=== PATIENT | male | born 1985 | race Caucasian/White ===

== ENCOUNTER 2020-08-29 09:52 | Emergency (ER) | payer OTHER ==
[2020-08-29 10:56] LABS: Absolute Lymphocytes (CBC) 1.5 K/uL (0.7-4.9); Basophils % 0.7 % (0-1.3); Hematocrit 45.4 % (39.6-49.0); Lymphocytes % 17.6 % (15.3-44.8); RBC Red Blood Cell Count 4.79 M/uL (4.33-5.43)
[2020-08-29 11:24] LABS: Potassium 4.3 mmol/L (3.5-5.1)
[2020-08-29] MEDS ORDERED: NA CHLORIDE 0.9% 1,000 ML ONE (11:52)
--- NOTE | 2020-08-29 12:05 | RAD REPORT ---
EXAM DESCRIPTION: US - Extrem Venous W Compress Brain - 08/29/2020 11:34 am CLINICAL HISTORY: PAIN, both legs COMPARISON: December 2011 TECHNIQUE: Real-time sonographic evaluation of the bilateral lower extremity common femoral, superfi cial femoral, popliteal and posterior tibial veins was performed. FINDINGS: Normal compressibility, flow augmentation, phasic flow and spontaneous flow are identified in the left and right lower extremity common femoral, superficial femoral, popliteal and posterior t ibial veins. No intraluminal filling defects seen. IMPRESSION: No DVT in either lower extremity.
--- NOTE | 2020-08-29 12:39 | ER ---
Nurse's Notes [facility] Name: Wilder Blair Age: 34 yrs Sex: Male : 1985 Arrival Date: 08/29/2020 Time: 09:57 Bed 2 Private MD: Diagnosis: Type 2 diabetes mellitus with diabetic neuropathy, unspecified;Hyperglycemia, unspecified Presentation: 08/29 10:15 Chief complaint: Patient states: LLE pain and swelling for 1 day. Discoloration to both ll1 lower legs noticed by patient, pins/needles feeling at times. No SOB. Coronavirus screen: Client denies travel out of the [place] in the last 14 days. At this time, the client does not indicate any symptoms associated with coronavirus-19. Ebola Screen: Patient denies travel to an Ebola-affected area in the 21 days before illness onset. Initial Sepsis Screen: Does the patient meet any 2 criteria? HR > 90 bpm. No. Patient's initial sepsis screen is negative. Does the patient have a suspected source of infection? Yes: Other: LLE swelling. Risk Assessment: Do you want to hurt yourself or someone else? Patient reports no desire to harm self or others. Onset of symptoms was August 29, 2020. 10:15 Method Of Arrival: Ambulatory ll1 10:15 Acuity: CALEB 2 ll1 Historical: - Allergies: 10:17 No Known Allergies; ll1 - PMHx: 10:17 Diabetes - NIDDM; Hypertension; Asthma; ll1 - PSHx: 10:17 None; ll1 - Immunization history:: Flu vaccine is not up to date. - Social history:: Smoking status: Patient denies any tobacco usage or history of. Screenin:52 Abuse screen: Denies threats or abuse. Denies injuries from another. Nutritional ph screening: No deficits noted. Tuberculosis screening: No symptoms or risk factors identified. Fall Risk None identified. Assessment: 10:50 General: Appears in no apparent distress. comfortable, obese, well groomed, Behavior is ph calm, cooperative, appropriate for age, Denies fever, feeling ill. Pain: Complains of pain in left calf Pain does not radiate. Neuro: Level of Consciousness is awake, alert, obeys commands, Oriented to person, place, time, situation. Cardiovascular: Capillary refill < 3 seconds in bilateral fingers toes Patient's skin is warm and dry. Edema is 1+ to left midcalf, left ankle, right midcalf and right ankle. Respiratory: Airway is patent Respiratory effort is even, unlabored, Denies shortness of breath. GI: No signs and/or symptoms were reported involving the gastrointestinal system. Derm: Skin is intact, is healthy with good turgor, Skin is pink, warm \T\ dry. Musculoskeletal: Circulation, motion, and sensation intact. Range of motion: intact in all extremities. 12:00 Reassessment: Patient appears in no apparent distress at this time. Patient and/or ph family updated on plan of care and expected duration. Pain level reassessed. Patient is alert, oriented x 3, equal unlabored respirations, skin warm/dry/pink. 13:07 Reassessment: Patient appears in no apparent distress at this time. Patient and/or ph family updated on plan of care and expected duration. Pain level reassessed. Patient is alert, oriented x 3, equal unlabored respirations, skin warm/dry/pink. Vital Signs: 10:15 BP 215 / 144; Pulse 118; Resp 20; Temp 98.6; Pulse Ox 98% ; Weight 167.83 kg; Height 5 ll1 ft. 10 in. (177.80 cm); Pain 0/10; 10:51 BP 203 / 117; Pulse 109; Resp 18; Pulse Ox 99% on R/A; ph 11:34 BP 185 / 112; Pulse 110; Resp 16; Pulse Ox 96% on R/A; ph 13:07 BP 178 / 101; Pulse 97; Resp 16; Temp 98.1; Pulse Ox 98% on R/A; ph 10:15 Body Mass Index 53.09 (167.83 kg, 177.80 cm) ll1 10:51 pt reports that he has not taken home BP medication in > 1 month ph ED Course: 09:57 Patient arrived in ED. mr 09:59 Jones Hameed PA is PHCP. jmm 09:59 Pako Anton MD is Attending Physician. jmm 10:17 Triage completed. ll1 10:18 Arm band placed on Patient placed in an exam room, on a stretcher. ll1 10:36 Jesica Freeman, JANNETH is Primary Nurse. ph 10:45 Initial lab(s) drawn, by me, sent to lab. Inserted saline lock: 22 gauge in left ph antecubital area, using aseptic technique. Blood collected. 10:52 Patient has correct armband on for positive identification. Bed in low position. Call ph light in reach. Side rails up X 1. Pulse ox on. NIBP on. Door closed. Noise minimized. Warm blanket given. 11:34 US Extremity Venous W Compression Brain In Process Unspecified. EDMS 13:07 No provider procedures requiring assistance completed. IV discontinued, intact, ph bleeding controlled, No redness/swelling at site. Pressure dressing applied. Administered Medications: 11:43 Drug: NS 0.9% 1000 ml Route: IV; Rate: 1 bolus; Site: left antecubital; ph 13:08 Follow up: Response: No adverse reaction; IV Status: Completed infusion; IV Intake: ph 800ml Intake: 13:08 IV: 800ml; Total: 800ml. ph Outcome: 12:38 Discharge ordered by . marilee 13:08 Discharged to home ambulatory, with significant other. ph 13:08 Condition: good 13:08 Discharge instructions given to patient, Instructed on discharge instructions, follow up and referral plans. medication usage, Demonstrated understanding of instructions, follow-up care, medications, Prescriptions given X 2. 13:08 Patient left the ED. ph Signatures: Dispatcher [employer] EDMS Jones Hameed PA PA jmm Rivera, Mary mr Hall, Patricia, RN RN ph Toño Johns RN RN ll1
--- NOTE | 2020-08-29 12:39 | EDPHYS ---
Physician Documentation [facility] Name: Wilder Blair Age: 34 yrs Sex: Male : 1985 Arrival Date: 08/29/2020 Time: 09:57 Bed 2 Private MD: ED Physician Pako Anton HPI: 08/29 10:38 This 34 yrs old Male presents to ER via Ambulatory with complaints of Leg jmm Swelling. 10:38 The patient presents with pain. Onset: The symptoms/episode began/occurred gradually. jmm Modifying factors: The symptoms are alleviated by nothing. the symptoms are aggravated by nothing. Associated signs and symptoms: Pertinent positives: calf tenderness, swelling, Pertinent negatives fever. This is a 34 year old male with a history of DM, HTN, asthma that presents ot the ED with complaints of swelling to his lower legs, worse on the left. Patient denies fever, shortness of breath, chest pain. . Historical: - Allergies: 10:17 No Known Allergies; ll1 - PMHx: 10:17 Diabetes - NIDDM; Hypertension; Asthma; ll1 - PSHx: 10:17 None; ll1 - Immunization history:: Flu vaccine is not up to date. - Social history:: Smoking status: Patient denies any tobacco usage or history of. ROS: 10:38 Constitutional: Negative for fever, chills, and weight loss, Cardiovascular: Negative jmm for chest pain, palpitations, and edema, Respiratory: Negative for shortness of breath, cough, wheezing, and pleuritic chest pain. 10:38 MS/extremity: Positive for swelling. 10:38 All other systems are negative. Exam: 10:38 Constitutional: This is a well developed, well nourished patient who is awake, alert, jmm and in no acute distress. Head/Face: atraumatic. Eyes: EOMI, no conjunctival erythema appreciated ENT: Moist Mucus Membranes Neck: Trachea midline, Supple Chest/axilla: Normal chest wall appearance and motion. Cardiovascular: Regular rate and rhythm. No edema appreciated Respiratory: Normal respirations, no respiratory distress appreciated Abdomen/GI: Non distended, soft Back: Normal ROM Skin: General appearance color normal 10:38 Musculoskeletal/extremity: swelling noted to the lower legs bilaterally, full dorsalis pulse bilaterally, compartments are soft, NVI. 10:38 Skin: Appearance: Color: normal in color. 10:38 Neuro: Orientation: is normal, Mentation: is normal, Memory: is normal. 10:38 Psych: Behavior/mood is pleasant, cooperative. Vital Signs: 10:15 BP 215 / 144; Pulse 118; Resp 20; Temp 98.6; Pulse Ox 98% ; Weight 167.83 kg; Height 5 ll1 ft. 10 in. (177.80 cm); Pain 0/10; 10:51 BP 203 / 117; Pulse 109; Resp 18; Pulse Ox 99% on R/A; ph 11:34 BP 185 / 112; Pulse 110; Resp 16; Pulse Ox 96% on R/A; ph 13:07 BP 178 / 101; Pulse 97; Resp 16; Temp 98.1; Pulse Ox 98% on R/A; ph 10:15 Body Mass Index 53.09 (167.83 kg, 177.80 cm) ll1 10:51 pt reports that he has not taken home BP medication in > 1 month ph MDM: 10:19 Patient medically screened. yolanda 12:36 Data reviewed: vital signs, nurses notes. Counseling: I had a detailed discussion with marilee the patient and/or guardian regarding: the historical points, exam findings, and any diagnostic results supporting the discharge/admit diagnosis, lab results, radiology results, the need for outpatient follow up, to return to the emergency department if symptoms worsen or persist or if there are any questions or concerns that arise at home. ED course: I discussed with the patient to resume prescribed htn and DM medications. I will provide a refill for both. Patient states he is planning on establishing himself with Dr. Adkins PCP. . ED course: Patient is otherwise given strict return precautions. Patient undewrstood and agrees with the plan of care. . 08/29 10:33 Order name: CBC with Diff; Complete Time: 11:31 [facility] 08/29 10:33 Order name: BMP; Complete Time: 11:31 [facility] 08/29 10:33 Order name: US Extremity Venous W Compression Brain; Complete Time: 12:08 [facility] 08/29 10:34 Order name: Saline Lock; Complete Time: 10:50 [facility] Administered Medications: 11:43 Drug: NS 0.9% 1000 ml Route: IV; Rate: 1 bolus; Site: left antecubital; ph 13:08 Follow up: Response: No adverse reaction; IV Status: Completed infusion; IV Intake: ph 800ml Disposition: 18:00 Co-signature as Attending Physician, Pako Anton MD I agree with the assessment and [facility] plan of care. Disposition: 08/29/20 12:38 Discharged to Home. Impression: Type 2 diabetes mellitus with diabetic neuropathy, unspecified, Hyperglycemia, unspecified. - Condition is Stable. - Discharge Instructions: Type 2 Diabetes Mellitus, Diagnosis, Adult, Hyperglycemia, Neuropathic Pain. - Prescriptions for Lisinopril 20 mg Oral Tablet - take 1 tablet by ORAL route once daily; 20 tablet. Metformin 500 mg Oral Tablet Sustained Release 24 hr - take 1 tablet by ORAL route once daily with evening meal; 20 tablet. - Medication Reconciliation Form, Thank You Letter, Antibiotic Education, Prescription Opioid Use form. - Follow up: Private Physician; When: 2 - 3 days; Reason: Recheck today's complaints, Continuance of care, Re-evaluation by your physician. Signatures: Dispatcher [employer] EDPako Stephens MD MD cha Mickail, Joel, PA PA jmm Hall, Patricia, RN RN ph Toño Johns RN RN ll1 Corrections: (The following items were deleted from the chart) 13:08 12:38 08/29/2020 12:38 Discharged to Home. Impression: Type 2 diabetes mellitus with ph diabetic neuropathy, unspecified; Hyperglycemia, unspecified. Condition is Stable. Forms are Medication Reconciliation Form, Thank You Letter, Antibiotic Education, Prescription Opioid Use. Follow up: Private Physician; When: 2 - 3 days; Reason: Recheck today's complaints, Continuance of care, Re-evaluation by your physician. marilee
[2020-08-29 13:18] VITALS: BP 178/101; TEMP 98.1; O2SAT 98
== END 2020-08-29 13:08 | disposition home or self-care (01) ==
LOC: ER 09:52
DX: E11.40 Type 2 diabetes mellitus with diabetic neuropathy, unspecified (principal); E11.65 Type 2 diabetes mellitus with hyperglycemia; I10 Essential (primary) hypertension
CPT/HCPCS: 85025; 80048; 36415; 93970; 96360; 99284; J7030

== ENCOUNTER 2020-10-25 22:16 | Emergency (ER) | payer OTHER ==
[2020-10-25] MEDS ORDERED: NA CHLORIDE 0.9% 2,000 ML ONE (23:57)
[2020-10-25] MEDS ORDERED: CLINDAMYCIN 900MG/D5W 900 MG/50 ML IVPB IV ONE (23:57)
[2020-10-25] MEDS ORDERED: ACETAMINOPHEN 500 MG TAB ONE (23:57)
[2020-10-26] MEDS ORDERED: MORPHINE 4 MG/ML SYR ONE ×2 (00:19→02:49)
[2020-10-26 00:23] LABS: Absolute Lymphocytes (CBC) 1.2 K/uL (0.7-4.9); Basophils % 0.5 % (0-1.3); Hematocrit 42.5 % (39.6-49.0); Lymphocytes % 12.1 % (15.3-44.8); MPV 9.2 fL (7.6-11.3); RBC Red Blood Cell Count 4.38 M/uL (4.33-5.43)
[2020-10-26 00:30] LABS: ALT/SGPT 83 U/L (12-78); AST/SGOT 27 U/L (15-37); Albumin 3.6 g/dL (3.4-5.0); Alkaline Phosphatase 152 U/L (45-117); BUN Blood Urea Nitrogen 8 mg/dL (7-18); Bicarbonate 26 mmol/L (21-32); Bilirubin Direct 0.2 mg/dL (0-0.2); Bilirubin Total 0.5 mg/dL (0.2-1.0); Glucose Level 258 mg/dL (74-106); Lipase 65 U/L (73-393); Potassium 3.7 mmol/L (3.5-5.1); Protein, Total 8.7 g/dL (6.4-8.2); Sodium Level 136 mmol/L (136-145)
[2020-10-26 01:07] LABS: Urine Blood TRACE (NEG); Urine Glucose 2+ (NEG); Urine Protein 1+ (NEG); Urine pH 5.5 (5.0-7.0)
[2020-10-26 01:12] LABS: Urine Bacteria <20 /HPF (NONE SEEN); Urine RBC <5 /HPF (NONE SEEN); Urine Yeast FEW (NONE SEEN)
[2020-10-26] MEDS ORDERED: ONDANSETRON 4 MG/2 ML VIAL ONE ×2 (01:12→01:46)
--- NOTE | 2020-10-26 01:18 | ER ---
Nurse's Notes [facility] Name: Wilder Blair Age: 34 yrs Sex: Male : 1985 Arrival Date: 10/25/2020 Time: 22:17 Bed 16 Private MD: Diagnosis: Rebeka gangrene Presentation: 10/25 22:34 Chief complaint: Patient states: I had a cyst on my right groin on Monday and Monday tl1 I squeezed it and junk came out. Today my right scrotum is swollen and painful. I had a fever on Monday. Coronavirus screen: Client denies travel out of the [place] in the last 14 days. Ebola Screen: Patient negative for fever greater than or equal to 101.5 degrees Fahrenheit, and additional compatible Ebola Virus Disease symptoms Patient denies exposure to infectious person. Patient denies travel to an Ebola-affected area in the 21 days before illness onset. Initial Sepsis Screen: Does the patient meet any 2 criteria? HR > 90 bpm. Does the patient have a suspected source of infection? Yes: Skin breakdown/wound. Risk Assessment: Do you want to hurt yourself or someone else? Patient reports no desire to harm self or others. Onset of symptoms was October 23, 2020. 22:34 Method Of Arrival: Ambulatory tl1 22:34 Acuity: CALEB 3 tl1 Historical: - Allergies: 22:38 No Known Allergies; tl1 - Home Meds: 22:38 Metformin Oral [Active]; Lisinopril Oral [Active]; tl1 - PMHx: 22:38 Asthma; Diabetes - NIDDM; Hypertension; tl1 - PSHx: 22:38 None; tl1 - Immunization history:: Adult Immunizations unknown. - Social history:: Smoking status: Patient uses alcohol, on a daily basis. street drugs, marijuana, Patient/guardian denies using tobacco products. Screenin:00 Abuse screen: Denies threats or abuse. Nutritional screening: No deficits noted. jb4 Tuberculosis screening: No symptoms or risk factors identified. Fall Risk None identified. Assessment: 23:00 General: Appears in no apparent distress. uncomfortable, Behavior is calm, cooperative, jb4 appropriate for age. Pain: Complains of pain in groin Pain does not radiate. Pain currently is 5 out of 10 on a pain scale. Quality of pain is described as throbbing. Neuro: Level of Consciousness is awake, alert, obeys commands, Oriented to person, place, time, situation. Cardiovascular: Patient's skin is warm and dry. Respiratory: Airway is patent Respiratory effort is even, unlabored, Respiratory pattern is regular, symmetrical. GI: No signs and/or symptoms were reported involving the gastrointestinal system. : Swelling noted on scrotum. EENT: No signs and/or symptoms were reported regarding the EENT system. Derm: Skin is intact, Skin is pink, warm \T\ dry. Musculoskeletal: Circulation, motion, and sensation intact. Range of motion: intact in all extremities. 10/26 00:00 Reassessment: Patient appears in no apparent distress at this time. No changes from jb4 previously documented assessment. Patient and/or family updated on plan of care and expected duration. Pain level reassessed. 01:00 Reassessment: Patient appears in no apparent distress at this time. Patient and/or jb4 family updated on plan of care and expected duration. Pain level reassessed. Patient is alert, oriented x 3, equal unlabored respirations, skin warm/dry/pink. 02:00 Reassessment: Patient appears in no apparent distress at this time. Patient and/or jb4 family updated on plan of care and expected duration. Pain level reassessed. Patient is alert, oriented x 3, equal unlabored respirations, skin warm/dry/pink. Patient states feeling better. 02:30 Reassessment: Pt reports an increase in pain, provider notified, see MAR for orders. jb4 03:11 Reassessment: Patient appears in no apparent distress at this time. Patient and/or jb4 family updated on plan of care and expected duration. Pain level reassessed. Patient is alert, oriented x 3, equal unlabored respirations, skin warm/dry/pink. Report given to EMS, IV site remains clean dry and intact with fluids infusing with ease. Patient states feeling better. Vital Signs: 10/25 22:34 BP 172 / 129; Pulse 137; Resp 20; Temp 100.1; Pulse Ox 97% ; Weight 167.83 kg; Height 5 tl1 ft. 10 in. (177.80 cm); Pain /10; 10/26 00:30 BP 148 / 91; Pulse 107; Resp 16; Pulse Ox 100% on R/A; jb4 00:49 Temp 99.4(O); jb4 01:15 BP 146 / 86; Pulse 115; Resp 16; Pulse Ox 96% on R/A; jb4 02:00 BP 148 / 82; Pulse 118; Resp 18; Pulse Ox 95% on R/A; Pain 2/10; jb4 03:00 BP 136 / 80; Pulse 119; Resp 16; Temp 97.1(TE); Pulse Ox 99% on R/A; jb4 12 22:34 Body Mass Index 53.09 (167.83 kg, 177.80 cm) tl1 ED Course: 10/25 22:17 Patient arrived in ED. cl3 22:25 Pako Mccarthy PA is PHCP. cp 22:25 Hudson Jacinto MD is Attending Physician. cp 22:37 Triage completed. tl1 22:38 Arm band placed on right wrist. tl1 23:00 Patient has correct armband on for positive identification. Bed in low position. Call jb4 light in reach. Side rails up X 1. Pulse ox on. NIBP on. 23:35 Armond Cooper, RN is Primary Nurse. jb4 12 00:00 Inserted saline lock: 18 gauge in left antecubital area, using aseptic technique. Blood jb4 collected. 00:00 Initial lab(s) drawn, by ar, sent to lab. First set of blood cultures drawn by me, jb4 Urine collected: clean catch specimen, clear, Amount Voided: 400mL. 00:15 Second set of blood cultures drawn by me. jb4 00:41 CT Abd/Pelvis - IV Contrast Only In Process Unspecified. EDMS 01:09 initiated transfer with Sandrita Diaz from [facility]. mw2 01:42 Scrotum Testicles In Process Unspecified. EDMS 01:58 administrative approval given by Sandrita Diaz/ patient has been accepted to [address] [place] [address] 1646/ Dr. Durbin has accepted the patient in transfer/ report to be called to [phone]. 03:13 No provider procedures requiring assistance completed. Patient transferred, IV remains jb4 in place. Administered Medications: 00:00 Drug: NS 0.9% 1000 ml Route: IV; Rate: 1 bolus; Site: right antecubital; jb4 01:30 Follow up: Response: No adverse reaction; IV Status: Completed infusion; IV Intake: jb4 1000ml 00:00 Drug: Tylenol 1000 mg Route: PO; jb4 00:45 Follow up: Response: No adverse reaction; Temperature is decreased jb4 00:08 Drug: morphine 4 mg Route: IVP; Site: left antecubital; jb4 00:30 Follow up: Response: No adverse reaction; Pain is decreased; RASS: Alert and Calm (0) jb4 00:15 Drug: Clindamycin 900 mg Route: IVPB; Infused Over: 30 mins; Site: left antecubital; jb4 00:45 Follow up: Response: No adverse reaction; IV Status: Completed infusion; IV Intake: [id number] 01:07 Drug: Zofran (Ondansetron) 4 mg Route: IVP; Site: left antecubital; 4 01:30 Follow up: Response: No adverse reaction; No change in condition 4 01:28 Drug: LevaQUIN 750 mg Volume: 150 ml; Route: IVPB; Infused Over: 90 mins; Site: left [facility] antecubital; 02:58 Follow up: Response: No adverse reaction; IV Status: Completed infusion; IV Intake: jb4 150ml 01:30 Drug: NS 0.9% 1000 ml Route: IV; Rate: 1 bolus; Site: left antecubital; 4 03:15 Follow up: Response: No adverse reaction; IV Status: Completed infusion; IV Intake: jb4 1000ml 01:42 Drug: Zofran (Ondansetron) 4 mg Route: IVP; Site: left antecubital; jb4 02:13 Follow up: Response: No adverse reaction; Nausea is decreased jb4 02:58 Drug: morphine 4 mg Route: IVP; Site: left antecubital; jb4 03:07 Follow up: Response: No adverse reaction; Pain is decreased; RASS: Alert and Calm (0) jb4 02:59 Drug: vancoMYCIN 1 grams Route: IVPB; Rate: calculated rate; Site: left antecubital; jb4 03:04 Follow up: Response: No adverse reaction; IV Status: Infusion continued upon transfer jb4 Intake: 00:45 IV: 50ml; Total: 50ml. jb4 01:30 IV: 1000ml; Total: 1050ml. jb4 02:58 IV: 150ml; Total: 1200ml. jb4 03:15 IV: 1000ml; Total: 2200ml. jb4 Outcome: 01:17 ER care complete, transfer ordered by MD. mosley 03:13 Transferred by ground EMS [facility] to [facility], Transfer form jb4 completed. X-rays sent w/ patient. 03:13 Condition: stable 03:13 Discharge instructions given to patient, Instructed on the need for transfer, Demonstrated understanding of instructions. 03:14 Patient left the ED. jb4 Signatures: Dispatcher [employer] EDMS Leilani Gay RN RN tl1 Pako Mccarthy PA PA cp Bryson, James RN RN jb4 Arti Espinoza mw2 Cindy Johns cl3 Corrections: (The following items were deleted from the chart) 03:15 02:30 IV Status: Completed infusion; IV Intake: 1000ml jb4 jb4
--- NOTE | 2020-10-26 01:18 | EDPHYS ---
Physician Documentation [facility] Name: Wilder Blair Age: 34 yrs Sex: Male : 1985 Arrival Date: 10/25/2020 Time: 22:17 Bed 16 Private MD: ED Physician Hudson Jacinto HPI: 10/25 22:50 This 34 yrs old Male presents to ER via Ambulatory with complaints of Groin cp Pain. 22:50 The patient presents with scrotal pain, of the right side, with swelling, with cp erythema, drainage. 22:50 Onset: The symptoms/episode began/occurred 2 day(s) ago. cp 22:50 Associated signs and symptoms: Pertinent positives: fever, Pertinent negatives: cp abdominal pain, dysuria, vomiting. Severity of symptoms: in the emergency department the symptoms are actually worse, moderately. Historical: - Allergies: 22:38 No Known Allergies; tl1 - Home Meds: 22:38 Metformin Oral [Active]; Lisinopril Oral [Active]; tl1 - PMHx: 22:38 Asthma; Diabetes - NIDDM; Hypertension; tl1 - PSHx: 22:38 None; tl1 - Immunization history:: Adult Immunizations unknown. - Social history:: Smoking status: Patient uses alcohol, on a daily basis. street drugs, marijuana, Patient/guardian denies using tobacco products. ROS: 22:55 : Positive for of the scrotum, pain, swelling and erythema, Negative for urinary cp symptoms. 22:55 Eyes: Negative for injury, pain, redness, and discharge. cp 22:55 Constitutional: Positive for fever, Negative for body aches, chills. 22:55 Cardiovascular: Negative for chest pain. 22:55 Respiratory: Negative for cough, shortness of breath, wheezing. 22:55 Abdomen/GI: Negative for abdominal pain, nausea, vomiting, and diarrhea. 22:55 Neuro: Negative for altered mental status, headache, weakness. 22:55 All other systems are negative. Exam: 23:00 Constitutional: The patient appears in no acute distress, alert, awake, non-toxic, well cp developed, well nourished, obese. 23:00 Head/Face: Normocephalic, atraumatic. cp 23:00 Eyes: Periorbital structures: appear normal, Conjunctiva: normal, no exudate, no injection, Lids and lashes: appear normal, bilaterally. 23:00 ENT: External ear(s): are unremarkable, Nose: is normal, Posterior pharynx: Airway: no evidence of obstruction, patent. 23:00 Chest/axilla: Inspection: normal. 23:00 Cardiovascular: Rate: tachycardic. 23:00 Respiratory: the patient does not display signs of respiratory distress, Respirations: normal, no use of accessory muscles, no retractions, labored breathing, is not present. 23:00 Abdomen/GI: Inspection: obese 23:00 : Male external genitalia: erythema, of the right scrotal and inguinal area is seen, that is moderate, swelling: tenderness, that is moderate, induration. Vital Signs: 22:34 BP 172 / 129; Pulse 137; Resp 20; Temp 100.1; Pulse Ox 97% ; Weight 167.83 kg; Height 5 tl1 ft. 10 in. (177.80 cm); Pain 5/10; 10/26 00:30 BP 148 / 91; Pulse 107; Resp 16; Pulse Ox 100% on R/A; jb4 00:49 Temp 99.4(O); jb4 01:15 BP 146 / 86; Pulse 115; Resp 16; Pulse Ox 96% on R/A; jb4 02:00 BP 148 / 82; Pulse 118; Resp 18; Pulse Ox 95% on R/A; Pain 2/10; jb4 03:00 BP 136 / 80; Pulse 119; Resp 16; Temp 97.1(TE); Pulse Ox 99% on R/A; jb4 10/25 22:34 Body Mass Index 53.09 (167.83 kg, 177.80 cm) tl1 MDM: 10/25 22:31 Patient medically screened. cp 10/26 01:20 Data reviewed: vital signs, nurses notes, lab test result(s), radiologic studies, CT cp scan. Counseling: I had a detailed discussion with the patient and/or guardian regarding: the historical points, exam findings, and any diagnostic results supporting the discharge/admit diagnosis, lab results, radiology results, the need to transfer to another facility, [facility] does not immediately have the required specialist. 01:38 Physician consultation: was called at 01:38, was contacted at 01:38, regarding cp regarding transfer, to [facility]. patient's condition, DR Oliver, urologist, will consult on patient and request transfer to services of hospitalist. 01:52 Physician consultation: was called at 01:50, was contacted at 01:50, regarding cp regarding transfer, to [facility]. patient's condition, accepting physician will be DR Durbin. 12 22:47 Order name: Lactate; Complete Time: 00:44 cp 10/26 00:44 Interpretation: Abnormal: LAC 2.2. cp 12 22:47 Order name: Procalcitonin; Complete Time: 01:32 cp 10/25 22:47 Order name: Blood Culture Adult (2) cp 10/25 22:47 Order name: Basic Metabolic Panel; Complete Time: 00:44 cp 10/25 22:47 Order name: CBC with Diff; Complete Time: 00:44 cp 10/26 00:44 Interpretation: Normal except: MARCUS% 79.7; LYM% 12.1; NEUT A 8.1. cp 10/25 22:47 Order name: Hepatic Function; Complete Time: 00:44 cp 10/25 22:47 Order name: US Scrotum Testicles cp 10/25 22:47 Order name: Lipase; Complete Time: 00:44 cp 10/25 22:47 Order name: Urine Microscopic Only; Complete Time: 01:32 cp 10/25 23:26 Order name: CT Abd/Pelvis - IV Contrast Only cp 10/26 00:21 Order name: Urine Dipstick--Ancillary (enter results); Complete Time: 01:32 mw2 10/26 01:32 Interpretation: Normal except: UKET 3+; UBLD TRACE; UPROT 1+. cp 10/26 01:14 Order name: Urine Culture EDMS 10/25 22:47 Order name: IV Saline Lock; Complete Time: 00:25 cp 10/25 22:47 Order name: Labs collected and sent; Complete Time: 00:25 cp 10/25 22:47 Order name: Urine Dipstick-Ancillary (obtain specimen); Complete Time: 00:24 cp 10/26 00:45 Order name: Vital Signs: please update to include temp; Complete Time: 00:49 cp Administered Medications: 00:00 Drug: NS 0.9% 1000 ml Route: IV; Rate: 1 bolus; Site: right antecubital; jb4 01:30 Follow up: Response: No adverse reaction; IV Status: Completed infusion; IV Intake: jb4 1000ml 00:00 Drug: Tylenol 1000 mg Route: PO; jb4 00:45 Follow up: Response: No adverse reaction; Temperature is decreased jb4 00:08 Drug: morphine 4 mg Route: IVP; Site: left antecubital; jb4 00:30 Follow up: Response: No adverse reaction; Pain is decreased; RASS: Alert and Calm (0) jb4 00:15 Drug: Clindamycin 900 mg Route: IVPB; Infused Over: 30 mins; Site: left antecubital; jb4 00:45 Follow up: Response: No adverse reaction; IV Status: Completed infusion; IV Intake: [id number] 01:07 Drug: Zofran (Ondansetron) 4 mg Route: IVP; Site: left antecubital; jb4 01:30 Follow up: Response: No adverse reaction; No change in condition jb4 01:28 Drug: LevaQUIN 750 mg Volume: 150 ml; Route: IVPB; Infused Over: 90 mins; Site: left [facility] antecubital; 02:58 Follow up: Response: No adverse reaction; IV Status: Completed infusion; IV Intake: jb4 150ml 01:30 Drug: NS 0.9% 1000 ml Route: IV; Rate: 1 bolus; Site: left antecubital; jb4 03:15 Follow up: Response: No adverse reaction; IV Status: Completed infusion; IV Intake: jb4 1000ml 01:42 Drug: Zofran (Ondansetron) 4 mg Route: IVP; Site: left antecubital; jb4 02:13 Follow up: Response: No adverse reaction; Nausea is decreased jb4 02:58 Drug: morphine 4 mg Route: IVP; Site: left antecubital; jb4 03:07 Follow up: Response: No adverse reaction; Pain is decreased; RASS: Alert and Calm (0) jb4 02:59 Drug: vancoMYCIN 1 grams Route: IVPB; Rate: calculated rate; Site: left antecubital; jb4 03:04 Follow up: Response: No adverse reaction; IV Status: Infusion continued upon transfer [facility] Disposition: 04:19 Co-signature as Attending Physician, Hudson Jacinto MD I agree with the assessment and tw4 plan of care. Disposition: 10/26/20 01:17 Transfer ordered to [facility]. Diagnosis is Rebeka gangrene. - Reason for transfer: Higher level of care. - Accepting physician is Doctor. - Condition is Stable. - Problem is new. - Symptoms have improved. Signatures: Dispatcher [employer] EDMS Leilani Gay, RN RN tl1 Pako Mccarthy PA PA cp Bryson, James RN RN jb4 Hudson Jacinto MD MD tw4 Corrections: (The following items were deleted from the chart) 03:14 01:17 10/26/2020 01:17 Transfer ordered to [facility]. jb4 Diagnosis is Rebeka gangrene. Reason for transfer: Higher level of care. Accepting physician is Doctor. Condition is Stable. Problem is new. Symptoms have improved. cp
[2020-10-26] MEDS ORDERED: Levofloxacin 750mg IV 750 MG/150 ML BAG IV ONE (01:33)
[2020-10-26] MEDS ORDERED: NA CHLORIDE 0.9% 250 ML ONE (01:33)
[2020-10-26] MEDS ORDERED: VANCOMYCIN 1 GM/VIAL ONE (01:33)
--- NOTE | 2020-10-26 08:31 | RAD REPORT ---
EXAM DESCRIPTION: US - Scrotum Testicles - 10/26/2020 1:42 am CLINICAL HISTORY: Pain;Swelling COMPARISON: Abdomen Pelvis W Contrast dated 10/26/2020 FINDINGS: The right testicle 4.0 x 3.1 x 2.7 cm. No intratesticular masses or evidence of testicular torsion. The left testicle 3.7 x 3.2 x 2.3 cm. No intratesticular masses or evidence of testicular torsion. Both epididymides are normal in size and appearance. Small right-sided scrotal katelynn. The soft tissues of the perineum and scrotum are quite edematous. Soft tissue infection is a possibil ity. IMPRESSION: No evidence of testicular torsion or testicular mass.
--- NOTE | 2020-10-26 10:49 | RAD REPORT ---
EXAM DESCRIPTION: CT ABDOMEN PELVIS WITH IV CONTRAST CLINICAL HISTORY: Right scrotal swelling/pain TECHNIQUE: Contiguous axial images obtained through the abdomen and pelvis following the uneventful administration of IV contrast. Coronal and sagittalreformatted images were provided. This exam was performed according to our departmental dose-optimization program, which includes autom ated exposure control, adjustment of the mA and/or kV according to patient size and/or use of iterati ve reconstruction technique. COMPARISON: 08/02/2013 FINDINGS: Lung bases: Clear Liver: Interval increase in degree of hepatomegaly. The liver is diffusely low in density compatible with steatosis. Gallbladder and biliary system: Unremarkable Pancreas: Unremarkable Spleen: Unremarkable Adrenals: Unremarkable Kidneys: Normal renal cortical enhancement. No calculi. No hydronephrosis. Bowel: No obstruction. No appreciable mucosal thickening. Appendix: The appendix is not definitively visualized. No findings to suggest acute appendicitis. Urinary bladder: Unremarkable Reproductive: Unremarkable as visualized Lymph nodes: Bilateral pelvic sidewall and inguinal lymph nodes measuring up to 18 mm in short axis. Peritoneum: No focal fluid collection. No free air. Vessels: No abdominal aortic aneurysm. Abdominal wall: Small fat-containing umbilical and bilateral inguinal hernias. Moderate infiltrative changes and soft tissue gas in the right upper scrotal/perineal region. There is an adjacent peripher ally enhancing collection measuring 2.3 x 1.3 x 2.5 cm (series 901 image 124). Diffuse scrotal wall e chevy. Bones: Multilevel spondylosis. No acute fracture. IMPRESSION: 1. Diffuse scrotal wall edema. Moderate infiltrative changes and soft tissue gas in th e right upper scrotal/perineal region concerning for necrotizing soft tissue infection. There is an a djacent abscess measuring 2.3 x 1.3 x 2.5 cm. 2. Other findings as above. THIS REPORT CONTAINS FINDINGS THAT MAY BE CRITICAL TO PATIENT CARE: The findings were verbally discu ssed via telephone conference with WILLIAN Taylor, on 10/26/2020 1:03 AM SWIMMING INSTRUCTOR. The results were acknowle dged and understood. Electronically signed by: Kieran Sosa MD 10/26/2020 1:05 AM SWIMMING INSTRUCTOR Due to temporary technical issues with the PACS/Fluency reporting system, reports are being signed by the in house radiologist without review as a courtesy to ensure prompt reporting. The interpreting r adiologist is fully responsible for the content of the report.
[2020-10-29 17:21] VITALS: BP 136/80; TEMP 97.1; O2SAT 99
== END 2020-10-26 03:14 | disposition short-term general hospital (02) ==
LOC: ER 22:16
DX: N49.3 Fournier gangrene (principal); I10 Essential (primary) hypertension; E11.9 Type 2 diabetes mellitus without complications
CPT/HCPCS: 96365; 96367; 96361; 87040 ×2; 87088; 85025; 87086; 80048; 36415; 82565; 80076; 83605; 83690; 84145; 74177; 76870; 96375; 99285; Q9967; J3370; J7050; J7030; J2405 ×2; 81003; 81015

== ENCOUNTER 2021-01-23 12:35 | Observation (INO) | payer OTHER ==
--- OUTSIDE RECORDS SUMMARY | 2021-01-23 12:39 | XMS REPORT | Continuity of Care Document ---
:1985 Author Organization [facility] t Address [address] [place] [address] Care Team Providers Name Role Phone Marisela STERLING Attending Clinician Daniela Garcia MD Attending Clinician Perry STERLING Attending Clinician DANIELA GARCIA Attending Clinician Unavailable Malcolm STERLING Attending Clinician Abraham Sharp MD Attending Clinician Rob Attending Clinician Dorina Mejia CRNA Attending Clinician Ruthy STERLING Attending Clinician Marshall Hanks MD Attending Clinician Han Sevilla CRNA Attending Clinician PERRY Admitting Clinician Unavailable Payers Payer Name Policy Type Policy Effective Date Expiration Date Sour ce Number MEDICAID - [id number] 2020 [facility] MEDICAID MGD 00:00:00 - Medical [place] Formerly [facility] HEALTH [id number] aid Contracted Problems Condition Condition Condition Status Onset Resolution Last Treating Co mments Source Name Details Category Date Date Treatment Clinician Date Scrotal Scrotal Disease Active 2019-[address] [facility] abscess abscess 12-27 [facility] Diabetes Diabetes Disease Active [facility] mellitus mellitus [facility] Hypertensi Hypertensi Disease Active [facility] on on [facility] Allergies, Adverse Reactions, Alerts This patient has no known allergies or adverse reactions. Social History Social Habit Start Date Stop Date Quantity Comments Source Sex Assigned At [facility] Tobacco use and 2020-11-04 2020-11-04 Never used [facility] - exposure 00:00:00 00:00:00 [facility] Smoking Status Start Date Stop Date Source Never smoker [facility] edical [place] Medications Ordered Filled Start Stop Current Ordering Indication Dosage Frequency Signature Comments Components Source Medication Medication Date Date Medication? Clinician (SIG) Name Name HYDROcodone 2019-11 1{tbl} Take [address] -acetaminop 222 11-20 tablet by Daniela kera carroll (NORCO 00:00: 23:59 mouth Medic al 10-325) 00 :00 every 6 Center 10-325 mg (six) per tablet hours as needed for Pain for up to 10 days. Max Daily Amount: 4 tablets HYDROmorpho 2019-11 2mg Take [address] [facility] ne 2-21 12-31 tablet (2 [facility] - (DILAUDID) 00:00: 23:59 mg total) edical 2 MG tablet 00 :00 by mouth Cent er every 4 (four) hours as needed for up to 10 days. Max Daily Amount: 12 mg lisinopriL 2019-11 Yes 20mg QD Take [address] (PRINIVIL,Z 2-18 by mouth Luke s - ESTRIL) 20 14:01: daily. Medic al MG tablet 29 Center metFORMIN 2019-11 Yes 500mg Take [address] [facility] (GLUCOPHAGE 2-18 mg by [facility] - ) 500 MG 14:01: mouth 2 Medica l tablet 29 (two) Center times daily with breakfast and dinner. potassium 2019-11 Yes 40meq QD Take 2 [facility] chloride SA 2-18 tablets [facility] - (K-DUR,KLOR 00:00: (40 mEq Med ical -CON) 20 00 total) by Center MEQ tablet mouth daily. hydroCHLORO 2019-11 No 25mg QD Take [address] thiazide 2-18 - tablet (25 [facility] - (HYDRODIURI 00:00: 23:59 mg total) Medical L) 25 MG 00 :00 by mouth Center tablet daily for 30 days. insulin 2019-11 No 30U QD Inject [address] glargine 01-07 Units [facility] - (LANTUS) 00:00: 23:59 subcutaneo Me dical 100 unit/mL 00 :00 usly Center injection nightly for 30 days Use as directed. insulin 2019-11 12U Inject [address] lispro 01-07 Units [facility] - (HumaLOG) 00:00: 23:59 subcutaneo M edical 100 unit/mL 00 :00 usly 3 Center injection (three) times daily before meals for 30 days. NIFEdipine 2019-11 No 60mg QD Take [address] (ADALAT CC) 01-07 tablet (60 L ukes - 60 MG 24 hr 00:00: 23:59 mg total) Medical tablet 00 :00 by mouth Center daily for 30 days. metroNIDAZO 2019-11 No 500mg Q.[id number] Take [address] LE (FLAGYL) 01-07 [id number] tablet [facility] - 500 MG 00:00: 23:59 3D (500 mg Medical tablet 00 :00 total) by Center mouth 3 (three) times daily for 19 days. amoxicillin 2019-11- No 1{tbl} Q.5D Take [address] -clavulanat 01-07 tablet by Daniela kes - e 00:00: 23:59 mouth 2 Medical (AUGMENTIN) 00 :00 (two) Center 875-125 mg times per tablet daily for 19 days. docusate 2019-11- No 100mg QD Take 1 [facility] t sodium 01-07 capsule [facility] - (COLACE) 00:00: 23:59 (100 mg Medic al 100 MG 00 :00 total) by Center capsule mouth daily for 10 days. ondansetron 2019-11- No 4mg Take [address] (ZOFRAN-ODT 01-0725 tablet (4 Daniela kes - ) 4 MG 00:00: 23:59 mg total) Medic al disintegrat 00 :00 by mouth Cent er ing tablet every 8 (eight) hours as needed for up to 7 days. HYDROmorpho 2019-11 No 2mg Take [address] [facility] [address] ne 01-07- tablet (2 [facility] - (DILAUDID) 00:00: 00:00 mg total) M edical 2 MG tablet 00 :00 by mouth Cent er every 4 (four) hours as needed for up to 10 days. Max Daily Amount: 12 mg polyethylen 2019-11 No 17g Take [address] [facility] e glycol 01-0721 by mouth [facility] - (GLYCOLAX) 00:00: 23:59 daily as Me dical 17 gram 00 :00 needed Center packet (Constipat ion) for up to 3 days. cefpodoxime 2019-11 200mg Q.5D Take [address] (VANTIN) 01-07 tablet [facility] - 200 MG 00:00: 00:00 (200 mg Medical tablet 00 :00 total) by Center mouth 2 (two) times daily for 19 days. Vital Signs Vital Name Observation Time Observation Value Comments Source Systolic blood 2020-11-06 12:00:00 132 mm[Hg] [facility] Diastolic blood 2020-11-06 12:00:00 79 mm[Hg] [facility] Heart rate 2020-11-06 12:00:00 98 /min [facility] Body temperature 2020-11-06 12:00:00 36.44 Lakesha [facility] Respiratory rate 2020-11-06 12:00:00 18 /min [facility] Oxygen saturation in 2020-11-06 12:00:00 98 /min [facility] - Arterial blood by Medical Ce nter Pulse oximetry Body height 2020-10-26 10:23:00 177.8 cm [facility] Body weight 2020-10-26 10:23:00 169.9 kg [facility] BMI 2020-10-26 10:23:00 53.74 kg/m2 [facility] Procedures Procedure Date / Time Performed Performing Clinician Ivan alex POCT-GLUCOSE METER 2020-11-06 12:26:00 Ralph Antonio [facility] POCT-GLUCOSE METER 2020-11-06 07:47:00 Marisela [facility] BASIC METABOLIC PANEL (7) 2020-11-06 05:29:00 Celine Sharp [facility] PHOSPHORUS 2020-11-06 05:29:00 Denishasierra [place] [facility] CBC W/PLT COUNT & AUTO 2020-11-06 05:29:00 Ralph Antonio I [facility] MAGNESIUM 2020-11-06 05:29:00 Denishasierra [place] [facility] POCT-GLUCOSE METER 2020-11-05 21:13:00 DenishaSharp [facility] POCT-GLUCOSE METER 2020-11-05 16:34:00 Denishasierra [place] [facility] POCT-GLUCOSE METER 2020-11-05 12:11:00 DenishaSharp [facility] POCT-GLUCOSE METER 2020-11-05 08:01:00 Denishasierra [place] [facility] BASIC METABOLIC PANEL (7) 2020-11-05 05:25:00 Celine Sharp [facility] HEMOGLOBIN AND HEMATOCRIT 2020-11-05 05:25:00 Celine Sharp [facility] CALCIUM, IONIZED 2020-11-05 05:25:00 [facility] PHOSPHORUS 2020-11-05 05:25[facility] 2020-11-05 05:25:[facility] POCT-GLUCOSE METER 2020-11-04 20:48:00 GregorydcjasSharp [facility] POCT-GLUCOSE METER 2020-11-04 17:44:00 DenishaSharp [facility] POCT-GLUCOSE METER 2020-11-04 12:51:00 DenishaSharp [facility] BASIC METABOLIC PANEL (7) 2020-11-04 10:15:00 Celine Sharp [facility] CALCIUM, IONIZED 2020-11-04 10:15:00 Gregorydcjassierra [place] [facility] PHOSPHORUS 2020-11-04 10:15:00 Gregorydcjassierra [place] [facility] CBC W/PLT COUNT & AUTO 2020-11-04 10:15:00 Denishasierra t[place]sonRalph [facility] MAGNESIUM 2020-11-04 10:15:00 [facility] POCT-GLUCOSE METER 2020-11-04 08:23:00 [facility] POCT-[facility]SE [facility] 2020-11-03 21:11:00 Gregorydcjassierra [place] [facility] POCT-GLUCOSE METER 2020-11-03 17:15:00 [facility] POCT-GLUCOSE METER 2020-11-03 14:59:00 [facility] DEBRIDEMENT/I&D,WOUND 2020-11-03 13:26:[address] [facility] ABORH, MANUAL 2020-11-03 12:25:00 Suagr Olmos [facility] POCT-GLUCOSE METER 2020-11-03 11:31:00 DenishaSharp [facility] POCT-GLUCOSE METER 2020-11-03 08:00:00 Gregorydcjassierra [place] [facility] BASIC METABOLIC PANEL (7) 2020-11-03 04:53:00 Celine Sharp [facility] HEMOGLOBIN AND HEMATOCRIT 2020-11-03 04:53:00 Celine Sharp [facility] CALCIUM, IONIZED 2020-11-03 04:53:00 Gregorydcjassierra [place] [facility] PHOSPHORUS 2020-11-03 04:53:00 [facility] MAGNESIUM 2020-11-03 04:53:00 Gregorydcjassierra [place] [facility] POCT-GLUCOSE METER 2020-11-02 21:58:00 [facility] [place] [facility] POCT-GLUCOSE METER 2020-11-02 16:03:00 GregorydcjasSharp [facility] TYPE AND SCREEN, 2020-11-02 15:01:[address] [facility] AUTOMATED [facility] SARS-COV2/RT-PCR ([facility] & 2020-11-02 13:38:[address] [facility] LABS) [facility] POCT-GLUCOSE METER 2020-11-02 11:34:00 GregorydcjasSharp [facility] POCT-GLUCOSE METER 2020-11-02 07:13:00 GregorydcjasSharp [facility] BASIC METABOLIC PANEL (7) 2020-11-02 04:17:00 Celine Sharp [facility] HEMOGLOBIN AND HEMATOCRIT 2020-11-02 04:17:00 Celine Sharp [facility] CALCIUM, IONIZED 2020-11-02 04:17:00 Denishasierra [place] [facility] PHOSPHORUS 2020-11-02 04:17:00 [facility] MAGNESIUM 2020-11-02 04:17:00 Gregorydcjassierra [place] [facility] POCT-GLUCOSE METER 2020-11-01 21:49:00 Gregorydcjassierra [place] [facility] POCT-GLUCOSE METER 2020-11-01 16:14:00 [facility] POCT-GLUCOSE METER 2020-11-01 12:02:00 [facility] BASIC METABOLIC PANEL (7) 2020-11-01 09:29:00 Celine Sharp [facility] CALCIUM, IONIZED 2020-11-01 09:29:00 Gregorycarmensierra [place] Ralph [facility] PHOSPHORUS 2020-11-01 09:29:00 [facility] & AUTO 2020-11-01 09:29:00 DenishaRalph queen Radha [facility] MAGNESIUM 2020-11-01 09:29:00 Denishabernice [facility] POCT-GLUCOSE METER 2020-11-01 08:12:00 Denishabernice [facility] POCT-GLUCOSE METER 2020-10-31 21:04:00 Denishasierra [place] [facility] POCT-GLUCOSE METER 2020-10-31 17:02:00 Denishabernice [facility] POCT-GLUCOSE METER 2020-10-31 12:29:00 Denishabernice [facility] POCT-GLUCOSE METER 2020-10-31 08:16:00 Marisela [facility] BASIC METABOLIC PANEL (7) 2020-10-31 05:03:00 Celine Sharp [facility] PHOSPHORUS 2020-10-31 05:03:00 [facility] MAGNESIUM 2020-10-31 05:03:00 [facility] CBC W/PLT COUNT & AUTO 2020-10-31 05:03:00 [facility]ra[facility] POCT-GLUCOSE METER 2020-10-30 22:42:00 Denishasierra [place] [facility] POCT-GLUCOSE METER 2020-10-30 16:42:00 Denishasierra [place] [facility] POCT-GLUCOSE METER 2020-10-30 11:34:00 Denishabernice [facility] POCT-GLUCOSE METER 2020-10-30 07:43:00 Gregorydcjassierra [place] [facility] BASIC METABOLIC PANEL (7) 2020-10-30 04:54:00 Celine Sharp [facility] PHOSPHORUS 2020-10-30 04:54:00 [facility] MAGNESIUM 2020-10-30 04:54:00 [facility] CBC W/PLT COUNT & AUTO 2020-10-30 04:54:00 [facility] CALCIUM, IONIZED 2020-10-30 04:54:00 [facility] PO[facility]SE METER 2020-10-29 21:15:00 [facility] POCT-GLUCOSE METER 2020-10-29 16:18:00 [facility] POCT-GLUCOSE METER 2020-10-29 11:21:00 [facility] POCT-GLUCOSE METER 2020-10-29 07:27:00 GregorydcjasSharp [facility] BASIC METABOLIC PANEL (7) 2020-10-29 03:59:00 Celine Sharp [facility] CALCIUM, IONIZED 2020-10-29 03:59:00 [facility] PHOSPHORUS 2020-10-29 03:59:00 [facility] MAGNESIUM 2020-10-29 03:59:00 [facility] CBC W/PLT COUNT & AUTO 2020-10-29 03:59:00 [facility] POCT-GLUCOSE METER 2020-10-28 21:10:00 GregorydcjasSharp [facility] POCT-GLUCOSE METER 2020-10-28 18:21:00 [facility] POCT-GLUCOSE METER 2020-10-28 16:38:00 [facility] DEBRIDEMENT/I&D,WOUND 2020-10-28 14:08:[address] [facility] PERINEAL/RECTAL/VULVAR Medical C enter PLACEMENT,WOUND VAC 2020-10-28 14:08:00 Tyler Bliss [facility] POCT-GLUCOSE METER 2020-10-28 12:18:00 Marisela [facility] POCT-GLUCOSE METER 2020-10-28 05:28:00 [facility]OLIC PANEL (7) 2020-10-28 04:23:00 Celine Sharp [facility] HEMOGLOBIN AND HEMATOCRIT 2020-10-28 04:23:00 Celine Sharp [facility] CALCIUM, IONIZED 2020-10-28 04:23:00 Mairsela [facility] PHOSPHORUS 2020-10-28 04:23:00 Marisela [facility] MAGNESIUM 2020-10-28 04:23:00 Marisela [facility] POCT-GLUCOSE METER 2020-10-27 21:38:00 Marisela [facility] POCT-GLUCOSE METER 2020-10-27 16:28:00 Marisela [facility] POCT-GLUCOSE METER 2020-10-27 11:24:00 Marisela [facility] POCT-GLUCOSE METER 2020-10-27 07:34:00 Marisela [facility] CBC W/PLT COUNT & AUTO 2020-10-27 04:48:00 Ralph Antonio CH I [facility] MAGNESIUM 2020-10-27 04:48:00 Marisela [facility] HEMOGLOBIN A1C 2020-10-27 04:48:00 Marisela [facility] TSH/FREE T4 IF INDICATED 2020-10-27 04:48:00 Marisela [facility] BASIC METABOLIC PANEL (7) 2020-10-27 04:48:00 Celine Sharp [facility] CALCIUM, IONIZED 2020-10-27 04:48:00 [facility]ishaDesert [facility] PHOSPHORUS 2020-10-27 04:48:00 [facility] POCT-GLUCOSE METER 2020-10-26 20:59:00 [facility] POCT-GLUCOSE METER 2020-10-26 17:47:00 GregorydcjasSharp [facility] CBC W/PLT COUNT & AUTO 2020-10-26 10:40:00 Madison Perea [facility] BASIC METABOLIC PANEL (7) 2020-10-26 10:40:00 Madison Perea [facility] POCT-GLUCOSE METER 2020-10-26 10:25:00 GregorydcjasSharp [facility] ANAEROBIC CULTURE 2020-10-26 09:25:57 Ruthy [facility] AFB CULTURE + SMEAR 2020-10-26 09:25:57 Ruthy [facility] (NON-SPUTUM) [facility] FUNGUS CULTURE + SMEAR 2020-10-26 09:25:57 Ruthy [facility] SPIN/CONCENTRATION CHARGE 2020-10-26 09:25:00 Tyler Bliss [facility] WOUND CULTURE + GRAM 2020-10-26 09:25:00 Ruthy [facility] STAIN [facility] DEBRIDEMENT/I&D,WOUND 2020-10-26 08:20:00 Ruthy [facility] PERINEAL/RECTAL/VULVAR Medical C enter LACTIC ACID, VENOUS 2020-10-26 06:27:00 Perry [facility] SARS-COV2/RT-PCR ([facility] & 2020-10-26 05:47:00 Maggie Amador [facility] - REF LABS) [facility] CBC W/PLT COUNT & AUTO 2020-10-26 05:31:00 Maggie Amador [facility] COMPREHENSIVE METABOLIC 2020-10-26 05:31:00 Perry, [place] [facility] PROTHROMBIN TIME/INR 2020-10-26 05:31:00 Eliseoernestonathaly [place] [facility] Plan of Care Planned Activity Planned Date Details Comments Source Future Scheduled 2021-01-[address] Daniela kes - Test 00:00:00 measurement Medical Center (procedure) [code = 97402932] Future Scheduled 2020-11-[address] [facility] - Test 00:00:00 (12+) [code = Medical Center DEPRESSION SCREENING (12+)] Future Scheduled 2020-07-21 INFLUENZA VACCINE (#1) [facility] 00:00:00 [code = INFLUENZA Medical Ce nter VACCINE (#1)] Future Scheduled [address] [facility] - Test 00:00:00 (procedure) [code = Medical Center 12100055] Future Scheduled 1997 DIABETIC EYE EXAM [facility] - Test 00:00:00 [code = DIABETIC EYE Medical Center EXAM] Future Scheduled [address] Jasmina es - Test 00:00:00 examination Medical Center (regime/therapy) [code = 317537573] Future Scheduled 1997 Urine screening for [facility] - Test 00:00:00 protein (procedure) Medical Center [code = 737632361] Future Scheduled [address] [facility] - Test 00:00:00 0-64 YRS (1 of 1 - Medical C enter PPSV23) [code = PNEUMOCOCCAL VACCINE 0-64 YRS (1 of 1 - PPSV23)] Encounters Start End Encounter Admission Attending Care Care Encounter Source Date/Time Date/Time Type Type Clinicians Facility Department ID 2020-11-17 2020-11-17 Outpatient [facility] [id number] [facility] 2020-11-11 2020[facility]11[facility]11 [id number] Results Test Description Test Time Test Comments Results Result Comments Source AFB culture + smear (non-sputum) 2020-12-08 07:22:00 Test Item Value Reference Range Interpretation Comme nts Result (test code = 6463-4) No acid-fast bacilli isolated in 42 day s AFB Smear (test code = 85715-7) No acid fast bacilli seen [facility]UM[facility]2020-12-08 07:22:00 Test Item Value Reference Range Interpretation Comments CULTURE (BEAKER) (test No acid-fast bacilli code = 1095) isolated in 42 days AFB SMEAR (BEAKER) No acid fast bacilli (test code = 994) seen Fungus culture + [id number] 23:55:00 Test Item Value Reference Range Interpretation Comments Result (test code = No fungus isolated in 6463-4) 28 days Fungus Smear (test No fungi seen code = 1406) [facility] + [id number] 23:55:00 Test Item Value Reference Range Interpretation Comments CULTURE (BEAKER) (test No fungus isolated in code = 1095) 28 days FUNGUS SMEAR (BEAKER) No fungi seen (test code = 1406) POC-Glucose [id number] 12:39:00 Test Item Value Reference Range Interpretation Comments POC-Glucose Meter (test 179 mg/dL 70-110 H : TE STED AT [facility] code = 1538) [address] [facility], 770 30: Machine [employer] Helper/Techni funmi ID = [id number] for Richard Seymour Lab Interpretation (test Abnormal code = 49469-0) [facility] [id number] 12:39:00 Test Item Value Reference Range Interpretation Comments POC-GLUCOSE METER 179 mg/dL 70-110 H : [facility] (BEAKER) (test code = [facility], 1538) 52778: Machine [employer]per/Techni funmi ID = [id number] for Richard Maguire POCT-GLUCOSE [id number] 07:59:00 Test Item Value Reference Range Interpretation Comments POC-GLUCOSE METER 129 mg/dL 70-110 H : TESTED A T [facility] 6720 (BEAKER) (test code = [facility], 1538) 52650: Machine [employer]per/Techni funmi ID = [id number] for Anita Liz CBC with platelet count + automated [id number] 07:28:00 Test Item Value Reference Range Interpretation Comments WBC (test code = 6690-2) 8.3 See_Comment [A utomated message] The system [employer] generated this result transmitted ref erence range: 3.5 - 10 .5 K/L. The refe rence range was not u sed to interpret this result as normal/abnor mal. RBC (test code = 789-8) 3.91 See_Comment L [Au tomated message] The system [employer] generated this result transmitted ref erence range: 4.63 - 6 .08 M/L. The refe rence range was not u sed to interpret this result as normal/abnor mal. MCHC (test code = 786-4) 32.6 See_Comment L [A utomated message] The system [employer] generated this result transmitted ref erence range: 32.3 - 3 6.5 GM/DL. The refe rence range was not u sed to interpret this result as normal/abnor mal. Hematocrit (test code = 38.7 % 40.1-51 L 4544-3) MCV (test code = 787-2) 99.0 fL 79-92.2 H MCH (test code = 785-6) 32.2 pg 25.7-32.2 RDW (test code = 788-0) 13.3 % 11.6-14.4 Platelets (test code = 337 See_Comment [Aut omated message] 777-3) The system [employer] generated this result transmitted ref erence range: 150 - 45 0 K/CU MM. The referen ce range was not u sed to interpret this result as normal/abnor mal. MPV (test code = 10.6 fL 9.4-12.4 49315-7) nRBC (test code = 413) 0 See_Comment [Aut omated message] The system [employer] generated this result transmitted ref erence range: 0 - 0 /1 00 WBC. The refere nce range was not u sed to interpret this result as normal/abnor mal. % Neutros (test code = 74 % 429) % Lymphs (test code = 18 % 430) % Monos (test code = 5 % 431) % Eos (test code = 432) 2 % % Baso (test code = 437) 0 % # Neutros (test code = 6.16 See_Comment H [Aut omated message] 670) The system [employer] generated this result transmitted ref erence range: 1.78 - 5 .38 K/L. The refe rence range was not u sed to interpret this result as normal/abnor mal. # Lymphs (test code = 1.49 See_Comment [Auto mated message] 414) The system [employer] generated this result transmitted ref erence range: 1.32 - 3 .57 K/L. The refe rence range was not u sed to interpret this result as normal/abnor mal. # Monos (test code = 0.42 See_Comment [Autom ated message] 415) The system [employer] generated this result transmitted ref erence range: 0.30 - 0 .82 K/L. The refe rence range was not u sed to interpret this result as normal/abnor mal. # Eos (test code = 416) 0.16 See_Comment [Au tomated message] The system [employer] generated this result transmitted ref erence range: 0.04 - 0 .54 K/L. The refe rence range was not u sed to interpret this result as normal/abnor mal. # Baso (test code = 417) 0.03 See_Comment [A utomated message] The system [employer] generated this result transmitted ref erence range: 0.01 - 0 .08 K/L. The refe rence range was not u sed to interpret this result as normal/abnor mal. Immature 1 % 0-1 Granulocytes-Relative (test code = 2801) Lab Interpretation (test Abnormal code = 68363-2) [facility] W/PLT COUNT & AUTO [id number] 07:28:00 Test Item Value Reference Range Interpretation Comments WHITE BLOOD CELL COUNT (BEAKER) 8.3 K/ L 3.5-10.5 (test code = 775) RED BLOOD CELL COUNT (BEAKER) 3.91 M/ L 4.63-6.08 L (test code = 761) HEMOGLOBIN (BEAKER) (test code = 12.6 GM/DL 13.7-17.5 L 410) HEMATOCRIT (BEAKER) (test code = 38.7 % 40.1-51.0 L 411) MEAN CORPUSCULAR VOLUME (BEAKER) 99.0 fL 79.0-92.2 H (test code = 753) MEAN CORPUSCULAR HEMOGLOBIN 32.2 pg 25.7-32.2 (BEAKER) (test code = 751) MEAN CORPUSCULAR HEMOGLOBIN CONC 32.6 GM/DL 32.3-36.5 (BEAKER) (test code = 752) RED CELL DISTRIBUTION WIDTH 13.3 % 11.6-14.4 (BEAKER) (test code = 412) PLATELET COUNT (BEAKER) (test 337 K/CU MM 150-450 code = 756) MEAN PLATELET VOLUME (BEAKER) 10.6 fL 9.4-12.4 (test code = 754) NUCLEATED RED BLOOD CELLS 0 /100 WBC 0-0 (BEAKER) (test code = 413) NEUTROPHILS RELATIVE PERCENT 74 % (BEAKER) (test code = 429) LYMPHOCYTES RELATIVE PERCENT 18 % (BEAKER) (test code = 430) MONOCYTES RELATIVE PERCENT 5 % (BEAKER) (test code = 431) EOSINOPHILS RELATIVE PERCENT 2 % (BEAKER) (test code = 432) BASOPHILS RELATIVE PERCENT 0 % (BEAKER) (test code = 437) NEUTROPHILS ABSOLUTE COUNT 6.16 K/ L 1.78-5.38 H (BEAKER) (test code = 670) LYMPHOCYTES ABSOLUTE COUNT 1.49 K/ L 1.32-3.57 (BEAKER) (test code = 414) MONOCYTES ABSOLUTE COUNT (BEAKER) 0.42 K/ L 0.30-0.82 (test code = 415) EOSINOPHILS ABSOLUTE COUNT 0.16 K/ L 0.04-0.54 (BEAKER) (test code = 416) BASOPHILS ABSOLUTE COUNT (BEAKER) 0.03 K/ L 0.01-0.08 (test code = 417) IMMATURE GRANULOCYTES-RELATIVE 1 % 0-1 PERCENT (BEAKER) (test code = 2801) Basic Metabolic Panel - In [id number] 07:00:00 Test Item Value Reference Range Interpretation Comments Sodium (test code = 136 meq/L 686-406 4914-2) Potassium (test code = 3.2 meq/L 3.5-5.1 L 2823-3) Chloride (test code = 98 meq/L 98-107 2075-0) CO2 (test code = 27 meq/L 22-29 8-9) BUN (test code = 4 mg/dL 7-21 L 3094-0) Creatinine (test code 0.65 mg/dL 0.57-1.25 = 2160-0) Glucose (test code = 121 mg/dL 70-105 H 2345-7) Calcium (test code = 9.0 mg/dL 8.4-10.2 33057-0) EGFR (test code = 142 mL/min/1.73 [place] [address]-7) NOT ACCURATE CREATININE CLEARANCE IN PREDICTING GLOMERULAR FILTRATION RATE . ESTIMATED GFR I S NOT APPLICABLE FOR DIALYSIS PATIENTS. LUCIO (test code = LUCIO) Machine Long Goods Helper ID - PIAYA L Lab Interpretation Abnormal (test code = 41439-0) [facility] Test Item Value Reference Range Interpretation Comments Magnesium (test code = 1.7 mg/dL 1.6-2.6 01240-1) LUCIO (test code = LUCIO) [employer] Helper ID - PIAYA L Lab Interpretation (test Normal code = 68451-1) [facility] 07:00:00 Test Item Value Reference Range Interpretation Comments Phosphorus (test code = 4.4 mg/dL 2.3-4.7 2777-1) LUCIO (test code = LUCIO) [employer] Helper ID - PIAYA L Lab Interpretation (test Normal code = 05467-4) [facility] [id number] 07:00:00 Test Item Value Reference Range Interpretation Comments SODIUM (BEAKER) 136 meq/L 136-145 (test code = 381) POTASSIUM (BEAKER) 3.2 meq/L 3.5-5.1 L (test code = 379) CHLORIDE (BEAKER) 98 meq/L 98-107 (test code = 382) CO2 (BEAKER) (test 27 meq/L -29 code = 355) BLOOD UREA NITROGEN 4 mg/dL 7-21 L (BEAKER) (test code = 354) CREATININE (BEAKER) 0.65 mg/dL 0.57-1.25 (test code = 358) GLUCOSE RANDOM 121 mg/dL 70-105 H (BEAKER) (test code = 652) CALCIUM (BEAKER) 9.0 mg/dL 8.4-10.2 (test code = 697) EGFR (BEAKER) (test 142 mL/min/1.73 ESTIM ATED GFR IS code = 1092) sq m NOT ACCURATE CREATININE CLEARANCE IN PREDICTING GLOMERULAR FILTRATION RATE . ESTIMATED GFR I S NOT APPLICABLE FOR DIALYSIS PATIEN TS. Machine [employer]s Helper ID - PIGREGORY [id number] 07:00:00 Test Item Value Reference Range Interpretation Comments MAGNESIUM (BEAKER) (test code = 1.7 mg/dL 1.6-2.6 627) [employer] Helper ID - PIGREGORY [id number] 07:00:00 Test Item Value Reference Range Interpretation Comments PHOSPHORUS (BEAKER) (test code = 4.4 mg/dL 2.3-4.7 604) [employer] Helper ID - AMANDA LPOCT-GLUCOSE [id number] 21:25:00 Test Item Value Reference Range Interpretation Comments POC-GLUCOSE METER 93 mg/dL 70-110 : TESTED A T [facility] 6720 (BEAKER) (test code = [facility]) 70[address]: Machine [employer] Goods Helper/Techni funmi ID = [id number] for Anita Durham od POCT-GLUCOSE [id number] 16:46:00 Test Item Value Reference Range Interpretation Comments POC-GLUCOSE METER 152 mg/dL 70-110 H : TESTED A T [facility] 6720 (BEAKER) (test code = [facility], 1538) 46197: Machine [employer] Goods Helper/Techni funmi ID = [id number] for Ellen Milner POCT-GLUCOSE [id number] 12:23:00 Test Item Value Reference Range Interpretation Comments POC-GLUCOSE METER 115 mg/dL 70-110 H : TESTED A T [facility] 6720 (BEAKER) (test code = [facility], 1538) 65375: Machine [employer] Goods Helper/Techni funmi ID = [id number] for Jamia j, Ellen POCT-GLUCOSE [id number] 08:13:00 Test Item Value Reference Range Interpretation Comments POC-GLUCOSE METER 127 mg/dL 70-110 H : TESTED A T [facility] 6720 (BEAKER) (test code = [facility], 1538) 37648: Machine [employer]s Helper/Techni funmi ID = [id number] for ISSA CHAPA BASIC METABOLIC [id number] 07:16:00 Test Item Value Reference Range Interpretation Comments SODIUM (BEAKER) 137 meq/L 136-145 (test code = 381) POTASSIUM (BEAKER) 3.2 meq/L 3.5-5.1 L (test code = 379) CHLORIDE (BEAKER) 100 meq/L 98-107 (test code = 382) CO2 (BEAKER) (test 28 meq/L 22-29 code = 355) BLOOD UREA NITROGEN 4 mg/dL 7-21 L (BEAKER) (test code = 354) CREATININE (BEAKER) 0.68 mg/dL 0.57-1.25 (test code = 358) GLUCOSE RANDOM 128 mg/dL 70-105 H (BEAKER) (test code = 652) CALCIUM (BEAKER) 8.9 mg/dL 8.4-10.2 (test code = 697) EGFR (BEAKER) (test 135 mL/min/1.73 ESTIM ATED GFR IS code = 1092) sq m NOT ACCURATE CREATININE CLEARANCE IN PREDICTING GLOMERULAR FILTRATION RATE . ESTIMATED GFR I S NOT APPLICABLE FOR DIALYSIS PATIEN TS. Machine [employer] Helper ID - NATASHA [id number] 07:16:00 Test Item Value Reference Range Interpretation Comments MAGNESIUM (BEAKER) (test code = 1.7 mg/dL 1.6-2.6 627) [employer] Helper ID - NATASHA [id number] 07:16:00 Test Item Value Reference Range Interpretation Comments PHOSPHORUS (BEAKER) (test code = 3.6 mg/dL 2.3-4.7 604) Machine [employer] Helper ID - NATASHA MCalcium, [id number] 06:37:00 Test Item Value Reference Range Interpretation Comments Calcium, Ion (test code = 1994-3) 1.14 mmol/L 1.12-1.27 pH, Blood (test code = 01480-8) 7.38 [facility] Center[facility], [id number] 06:37:00 Test Item Value Reference Range Interpretation Comments CALCIUM IONIZED (BEAKER) (test 1.14 mmol/L 1.12-1.27 code = 698) PH, BLOOD (BEAKER) (test code = 7.38 1810) Hemoglobin and hematocrit - in [id number] 06:20:00 Test Item Value Reference Range Interpretation Comments Hemoglobin (test code 12.1 See_Comment L [Auto mated = 786-4) message] The system which generated this result transmit shell reference range : 13.7 - 17.5 GM/ DL. The reference range was not u sed to interpret th is result as normal/abnormal . Hematocrit (test code 37.7 % 40.1-51 L = 4544-3) LUCIO (test code = LUCIO) Machine [employer] Goods Helper ID - [id number] Lab Interpretation Abnormal (test code = 41530-6) [facility] CenterHEMOGLOBIN AND [id number] 06:20:00 Test Item Value Reference Range Interpretation Comments HEMOGLOBIN (BEAKER) (test code = 12.1 GM/DL 13.7-17.5 L 410) HEMATOCRIT (BEAKER) (test code = 37.7 % 40.1-51.0 L 411) Machine [employer] Goods Helper ID - 6000POCT-GLUCOSE [id number] 21:00:00 Test Item Value Reference Range Interpretation Comments POC-GLUCOSE METER 133 mg/dL 70-110 H : TESTED A T [facility] 6720 (BEAKER) (test code = [employer] [facility], 1538) 29489: Machine [employer] Goods Helper/Techni funmi ID = [id number] for Anita Liz POCT-GLUCOSE [id number] 17:56:00 Test Item Value Reference Range Interpretation Comments POC-GLUCOSE METER 150 mg/dL 70-110 H : TESTED A T [facility] 6720 (BEAKER) (test code = [place] [facility], 1538) 19712: Machine [employer] Goods Helper/Techni funmi ID = [id number] for Ellen Milner POCT-GLUCOSE [id number] 13:03:00 Test Item Value Reference Range Interpretation Comments POC-GLUCOSE METER 162 mg/dL 70-110 H : TESTED A T [facility] 6720 (BEAKER) (test code = [place] [facility], 1538) 33578: Machine [employer] Goods Helper/Techni funmi ID = [id number] for Ellen Milner BASIC METABOLIC [id number] 10:45:00 Test Item Value Reference Range Interpretation Comments SODIUM (BEAKER) 135 meq/L 136-145 L (test code = 381) POTASSIUM (BEAKER) 3.6 meq/L 3.5-5.1 (test code = 379) CHLORIDE (BEAKER) 100 meq/L 98-107 (test code = 382) CO2 (BEAKER) (test 27 meq/L 22-29 code = 355) BLOOD UREA NITROGEN 3 mg/dL 7-21 L (BEAKER) (test code = 354) CREATININE (BEAKER) 0.74 mg/dL 0.57-1.25 (test code = 358) GLUCOSE RANDOM 164 mg/dL 70-105 H (BEAKER) (test code = 652) CALCIUM (BEAKER) 8.6 mg/dL 8.4-10.2 (test code = 697) EGFR (BEAKER) (test 123 mL/min/1.73 ESTIM ATED GFR IS code = 1092) sq m NOT ACCURATE CREATININE CLEARANCE IN PREDICTING GLOMERULAR FILTRATION RATE . ESTIMATED GFR I S NOT APPLICABLE FOR DIALYSIS PATIEN TS. Machine [employer]s Helper ID - BINTA [id number] 10:45:00 Test Item Value Reference Range Interpretation Comments MAGNESIUM (BEAKER) (test code = 1.7 mg/dL 1.6-2.6 627) Machine [employer]s Helper ID - BINTA [id number] 10:45:00 Test Item Value Reference Range Interpretation Comments PHOSPHORUS (BEAKER) (test code = 2.9 mg/dL 2.3-4.7 604) Machine [employer]s Helper ID - BINTA CCALCIUM, [id number] 10:30:00 Test Item Value Reference Range Interpretation Comments CALCIUM IONIZED (BEAKER) (test 1.15 mmol/L 1.12-1.27 code = 698) PH, BLOOD (BEAKER) (test code = 7.38 1810) CBC W/PLT COUNT & AUTO [id number] 10:23:00 Test Item Value Reference Range Interpretation Comments WHITE BLOOD CELL COUNT (BEAKER) 8.6 K/ L 3.5-10.5 (test code = 775) RED BLOOD CELL COUNT (BEAKER) 3.77 M/ L 4.63-6.08 L (test code = 761) HEMOGLOBIN (BEAKER) (test code = 12.1 GM/DL 13.7-17.5 L 410) HEMATOCRIT (BEAKER) (test code = 37.7 % 40.1-51.0 L 411) MEAN CORPUSCULAR VOLUME (BEAKER) 100.0 fL 79.0-92.2 H (test code = 753) MEAN CORPUSCULAR HEMOGLOBIN 32.1 pg 25.7-32.2 (BEAKER) (test code = 751) MEAN CORPUSCULAR HEMOGLOBIN CONC 32.1 GM/DL 32.3-36.5 L (BEAKER) (test code = 752) RED CELL DISTRIBUTION WIDTH 13.3 % 11.6-14.4 (BEAKER) (test code = 412) PLATELET COUNT (BEAKER) (test 319 K/CU MM 150-450 code = 756) MEAN PLATELET VOLUME (BEAKER) 10.0 fL 9.4-12.4 (test code = 754) NUCLEATED RED BLOOD CELLS 0 /100 WBC 0-0 (BEAKER) (test code = 413) NEUTROPHILS RELATIVE PERCENT 77 % (BEAKER) (test code = 429) LYMPHOCYTES RELATIVE PERCENT 14 % (BEAKER) (test code = 430) MONOCYTES RELATIVE PERCENT 5 % (BEAKER) (test code = 431) EOSINOPHILS RELATIVE PERCENT 3 % (BEAKER) (test code = 432) BASOPHILS RELATIVE PERCENT 1 % (BEAKER) (test code = 437) NEUTROPHILS ABSOLUTE COUNT 6.67 K/ L 1.78-5.38 H (BEAKER) (test code = 670) LYMPHOCYTES ABSOLUTE COUNT 1.17 K/ L 1.32-3.57 L (BEAKER) (test code = 414) MONOCYTES ABSOLUTE COUNT (BEAKER) 0.44 K/ L 0.30-0.82 (test code = 415) EOSINOPHILS ABSOLUTE COUNT 0.23 K/ L 0.04-0.54 (BEAKER) (test code = 416) BASOPHILS ABSOLUTE COUNT (BEAKER) 0.05 K/ L 0.01-0.08 (test code = 417) IMMATURE GRANULOCYTES-RELATIVE 1 % 0-1 PERCENT (BEAKER) (test code = 2801) POCT-GLUCOSE [id number] 08:36:00 Test Item Value Reference Range Interpretation Comments POC-GLUCOSE METER 188 mg/dL 70-110 H : TESTED Molina Hines [facility] 6720 (BEAKER) (test code = [facility], 1538) 22056: Machine [employer] Goods Helper/Techni funmi ID = [id number] for Ellen Milner POCT-GLUCOSE [id number] 21:25:00 Test Item Value Reference Range Interpretation Comments POC-GLUCOSE METER 154 mg/dL 70-110 H : TESTED A T [facility] 6720 (BEAKER) (test code = [facility], 153) 96556: Machine [employer] Goods Helper/Techni funmi ID = [id number] for ANASTACIO ALMEIDA POCT-GLUCOSE [id number] 17:27:00 Test Item Value Reference Range Interpretation Comments POC-GLUCOSE METER 142 mg/dL 70-110 H : TESTED A T [facility] 6720 (BEAKER) (test code = [facility], 153) 58843: Machine [employer] Goods Helper/Techni funmi ID = [id number] for Almita Davalos POCT-GLUCOSE [id number] 15:11:00 Test Item Value Reference Range Interpretation Comments POC-GLUCOSE METER 127 mg/dL 70-110 H : TESTED A T [facility] 6720 (BEAKER) (test code [facility], = 1538) 66521: Machine Long Goods Helper/Techni funmi ID = [id number] for TEA PITTMAN GINNY ABOR, [id number] 13:29:00 Test Item Value Reference Range Interpretation Comments ABO Grouping (test code = 2588) O Rh Factor (test code = 2589) POS [facility]PO[facility] [id number] 11:42:00 Test Item Value Reference Range Interpretation Comments POC-GLUCOSE METER 145 mg/dL 70-110 H : TESTED A T [facility] 6720 (BEAKER) (test code = [facility], 153) 47927: Machine [employer] Goods Helper/Techni funmi ID = [id number] for NIKUNJ ARREOLA POCT-GLUCOSE [id number] 08:12:00 Test Item Value Reference Range Interpretation Comments POC-GLUCOSE METER 135 mg/dL 70-110 H : TESTED A T [facility] 6720 (BEAKER) (test code = [facility], 153) 88573: Machine [employer] Goods Helper/Techni funmi ID = [id number] for Almita Davalos BASIC METABOLIC [id number] 05:41:00 Test Item Value Reference Range Interpretation Comments SODIUM (BEAKER) 138 meq/L 136-145 (test code = 381) POTASSIUM (BEAKER) 3.5 meq/L 3.5-5.1 (test code = 379) CHLORIDE (BEAKER) 102 meq/L 98-107 (test code = 382) CO2 (BEAKER) (test 25 meq/L 22-29 code = 355) BLOOD UREA NITROGEN 5 mg/dL 7-21 L (BEAKER) (test code = 354) CREATININE (BEAKER) 0.72 mg/dL 0.57-1.25 (test code = 358) GLUCOSE RANDOM 139 mg/dL 70-105 H (BEAKER) (test code = 652) CALCIUM (BEAKER) 8.9 mg/dL 8.4-10.2 (test code = 697) EGFR (BEAKER) (test 127 mL/min/1.73 ESTIM ATED GFR IS code = 1092) sq m NOT ACCURATE CREATININE CLEARANCE IN PREDICTING GLOMERULAR FILTRATION RATE . ESTIMATED GFR I S NOT APPLICABLE FOR DIALYSIS PATIEN TS. Machine [employer] Goods Helper ID - NATASHA [id number] 05:41:00 Test Item Value Reference Range Interpretation Comments MAGNESIUM (BEAKER) (test code = 1.7 mg/dL 1.6-2.6 627) Machine [employer] Helper ID - NATASHA [id number] 05:41:00 Test Item Value Reference Range Interpretation Comments PHOSPHORUS (BEAKER) (test code = 3.9 mg/dL 2.3-4.7 604) Machine [employer] Goods Helper ID - NATASHA MCALCIUM, [id number] 05:24:00 Test Item Value Reference Range Interpretation Comments CALCIUM IONIZED (BEAKER) (test 1.17 mmol/L 1.12-1.27 code = 698) PH, BLOOD (BEAKER) (test code = 7.36 1810) HEMOGLOBIN AND [id number] 05:11:00 Test Item Value Reference Range Interpretation Comments HEMOGLOBIN (BEAKER) (test code = 12.3 GM/DL 13.7-17.5 L 410) HEMATOCRIT (BEAKER) (test code = 39.2 % 40.1-51.0 L 411) Machine [employer] Goods Helper ID - 6000POCT-GLUCOSE [id number] 22:10:00 Test Item Value Reference Range Interpretation Comments POC-GLUCOSE METER 149 mg/dL 70-110 H : TESTED A T [facility] 6720 (BEAKER) (test code = [facility], 1538) 19162: Machine [employer] Goods Helper/Techni funmi ID = [id number] for Angelica Braden SARS-CoV2/RT-PCR (Asymptomatic ONLY)2020-11-02 19:12:00 Test Item Value Reference Range Interpretation Comments SARS-COV2/RT-PCR Negative Not Detected, (test code = Negative, See 29926-7) external report for linked test [facility] (test code = 99184-9) LUCIO (test code = Negative result for this LUCIO) test determines that SARS-CoV-2 RNA was not present in the specimen above the Limit of Detection (LOD). However, Negative results do not preclude SARS-CoV-2 infection and should not be used as the sole basis for treatment or patient management decisions. Negative results must be combined with clinical observations, patient history, and epidemiological information. A false negative result may occur if a specimen is improperly collected, transported or handled. A false negative result should be considered if patient's recent exposures or clinical presentation indicate that COVID-19 (SARS-CoV-2) is likely and diagnostic tests for other causes of illness are negative. Re-testing should be considered in cases of suspected false negatives. The limit of detection for this assay is 800 copies/mL. This SARS CoV-2 test is a real-time RT-PCR test intended for the qualitative detection of nucleic acid from SARS-CoV-2 in a nasopharyngeal swab specimen collected from individuals suspected of COVID-19 by their healthcare provider. This test has not been Food and Drug Administration (FDA) cleared or approved. This is a modified version of an approved Emergency Use Authorization (EUA) and is in the process of review by the FDA. Once authorized by the FDA, the issued EUA will be effective until the declaration that circumstances exist justifying the authorization of the emergency use of in vitro diagnostic tests for detection and/or diagnosis of COVID-19 is terminated under Section 564(b)(2) of the Act or the EUA is revoked under Section 564(g) of the Act. Fact Sheet for Healthcare Providers:https://www.[employer]/sites/default/f starla/product/documents/F act_Sheet_HC_Providers_L ifb_JFNU-UcW-9.pdf Fact Sheet for Healthcare Patients:https://www.[employer]/sites/default/fi les/product/documents/Fa ct_Sheet_Patients_Lyra_S ARS-CoV-2.pdf Performing Laboratory:[facility] [place] [address] [facility] (HS & REF LABS)2020-11-02 19:12:00 Test Item Value Reference Range Interpretation Comments SARS-COV2/RT-PCR (test Negative Not Detected, Negative, code = 4093008) See external report for linked test SARS-COV-[address] [facility] DEISI (test code = 4342984) Negative result for this test determines that SARS-CoV-2 RNA was not present in the specimen above the Limit of Detection (LOD). However, Negative results do not preclude SARS-CoV-2 infection and should not be used as the sole basis for treatment or patient management decisions. Negative results mustbe combined with clinical observations, patient history, and epidemiological information. A false negative result may occur if a specimen is improperly collected, transported or handled. A false negative result should be considered if patient's recent exposures or clinical presentation indicate that COVID-19 (SARS-CoV-2) is likely and diagnostic tests for other causes of illness are negative. Re-testing should be considered in cases of suspected false negatives.The limit of detection for this assay is 800 copies/mL.This SARS CoV-2 test is a real-time RT-PCR test intended for the qualitative detection of nucleic acid from SARS-CoV-2 in a nasopharyngeal swab specimen collected from individuals susp ected of COVID-19 by their healthcare provider.This test has not been Food and Drug Administration (FDA) cleared or approved. This is a modified version of an approved Emergency Use Authorization (EUA) and is in the process of review by the FDA. Once authorized by the FDA, the issued EUA will be effective until the declaration that circumstances exist justifying the authorization of the emergency use of in vitro diagnostic tests for detection and/or diagnosis of COVID-19 is terminated under Section 564(b)(2) of the Act or the EUA is revoked under Section 564(g) of the Act.Fact Sheet for Healthcare Providers:https://www.[employer]/sites/default/files/product/documents/Fact_Shee d_RU_Oesgwpoka_Scaa_BUSZ-RoB-7.pdfFact Sheet for Healthcare Patients:https://www.[employer]/sites/default/files/product/ documents/Mlps_Erzqk_Ikizlbwr_Zsbr_BAKJ-SyU-1.pdfPerforming Laboratory:[facility], [place] [address]Ardy and screen, [id number] 16:40:00 Test Item Value Reference Range Interpretation Comments ABO/RH AUTOMATED (BEAKER) (test O POSITIVE code = 2260) Ab Scrn (test code = 890-4) NEGATIVE [facility] [id number] 16:15:00 Test Item Value Reference Range Interpretation Comments POC-GLUCOSE METER 149 mg/dL 70-110 H : TESTED A T [facility] 6720 (BEAKER) (test code = [facility], 1538) 11737: Machine [employer] Goods Helper/Techni funmi ID = [id number] for DIA ARREOLAYL POCT-GLUCOSE [id number] 11:47:00 Test Item Value Reference Range Interpretation Comments POC-GLUCOSE METER 125 mg/dL 70-110 H : TESTED A T [facility] 6720 (BEAKER) (test code = [facility], 1538) 97286: Machine [employer] Goods Helper/Techni funmi ID = [id number] for DIA ARREOLAYL POCT-GLUCOSE [id number] 07:26:00 Test Item Value Reference Range Interpretation Comments POC-GLUCOSE METER 115 mg/dL 70-110 H : TESTED A T [facility] 6720 (BEAKER) (test code = [facility], 153) 03865: Machine [employer] Goods Helper/Techni funmi ID = [id number] for MAXWELL NIKUNJ [id number] 06:04:00 Test Item Value Reference Range Interpretation Comments MAGNESIUM (BEAKER) 1.8 mg/dL 1.6-2.6 Specimen slightly (test code = 627) hemolyzed [employer] Helper ID - [id number] 06:04:00 Test Item Value Reference Range Interpretation Comments PHOSPHORUS (BEAKER) 3.4 mg/dL 2.3-4.7 Specimen slightly (test code = 604) hemolyzed [employer] Helper ID - EDASIBASIC METABOLIC [id number] 06:04:00 Test Item Value Reference Range Interpretation Comments SODIUM (BEAKER) 138 meq/L 136-145 (test code = 381) POTASSIUM (BEAKER) 4.0 meq/L 3.5-5.1 Specimen slightly (test code = 379) hemolyzed CHLORIDE (BEAKER) 102 meq/L 98-107 (test code = 382) CO2 (BEAKER) (test 22 meq/L 22-29 code = 355) BLOOD UREA NITROGEN 5 mg/dL 7-21 L (BEAKER) (test code = 354) CREATININE (BEAKER) 0.70 mg/dL 0.57-1.25 Specimen slightly (test code = 358) hemolyzed GLUCOSE RANDOM 102 mg/dL 70-105 (BEAKER) (test code = 652) CALCIUM (BEAKER) 8.9 mg/dL 8.4-10.2 (test code = 697) EGFR (BEAKER) (test 131 mL/min/1.73 ESTIM ATED GFR IS code = 1092) sq m NOT ACCURATE CREATININE CLEARANCE IN PREDICTING GLOMERULAR FILTRATION RATE . ESTIMATED GFR I S NOT APPLICABLE FOR DIALYSIS PATIEN TS. Machine [employer] Goods Helper ID - EDASICALCIUM, [id number] 05:54:00 Test Item Value Reference Range Interpretation Comments CALCIUM IONIZED (BEAKER) (test 1.16 mmol/L 1.12-1.27 code = 698) PH, BLOOD (BEAKER) (test code = 7.31 1810) HEMOGLOBIN AND [id number] 05:38:00 Test Item Value Reference Range Interpretation Comments HEMOGLOBIN (BEAKER) (test code = 13.4 GM/DL 13.7-17.5 L 410) HEMATOCRIT (BEAKER) (test code = 41.5 % 40.1-51.0 411) Machine [employer] Goods Helper ID - 6000POCT-GLUCOSE [id number] 22:01:00 Test Item Value Reference Range Interpretation Comments POC-GLUCOSE METER 82 mg/dL 70-110 : [facility] ([facility]ER) (test code = [facility], 1538) 60877: Machine [employer] Goods Helper/Techni funmi ID = [id number] for GRAH AM, ADRIENNE POCT-GLUCOSE [id number] 16:27:00 Test Item Value Reference Range Interpretation Comments POC-GLUCOSE METER 112 mg/dL 70-110 H : TESTED A T [facility] 6720 (BEAKER) (test code = [facility], 1538) 66544: Machine [employer] Goods Helper/Techni funmi ID = [id number] for LONNY YEBOAHA POCT-GLUCOSE [id number] 12:15:00 Test Item Value Reference Range Interpretation Comments POC-GLUCOSE METER 127 mg/dL 70-110 H : TESTED A T [facility] 6720 (BEAKER) (test code = [facility], 1538) 66766: Machine Long Goods Helper/Techni funmi ID = [id number] for DA APOLINAR, KEYAIRA BASIC METABOLIC [id number] 10:10:00 Test Item Value Reference Range Interpretation Comments SODIUM (BEAKER) 138 meq/L 136-145 (test code = 381) POTASSIUM (BEAKER) 3.8 meq/L 3.5-5.1 (test code = 379) CHLORIDE (BEAKER) 103 meq/L 98-107 (test code = 382) CO2 (BEAKER) (test 22 meq/L 22-29 code = 355) BLOOD UREA NITROGEN 6 mg/dL 7-21 L (BEAKER) (test code = 354) CREATININE (BEAKER) 0.72 mg/dL 0.57-1.25 (test code = 358) GLUCOSE RANDOM 144 mg/dL 70-105 H (BEAKER) (test code = 652) CALCIUM (BEAKER) 8.9 mg/dL 8.4-10.2 (test code = 697) EGFR (BEAKER) (test 127 mL/min/1.73 ESTIM ATED GFR IS code = 1092) sq m NOT ACCURATE CREATININE CLEARANCE IN PREDICTING GLOMERULAR FILTRATION RATE . ESTIMATED GFR I S NOT APPLICABLE FOR DIALYSIS PATIEN TS. [employer]per ID - [id number] 10:10:00 Test Item Value Reference Range Interpretation Comments MAGNESIUM (BEAKER) (test code = 1.8 mg/dL 1.6-2.6 627) [employer] ID - [id number] 10:10:00 Test Item Value Reference Range Interpretation Comments PHOSPHORUS (BEAKER) (test code = 3.1 mg/dL 2.3-4.7 604) [employer] ID - ADMINCBC W/PLT COUNT & AUTO [id number] 09:45:00 Test Item Value Reference Range Interpretation Comments WHITE BLOOD CELL COUNT (BEAKER) 7.8 K/ L 3.5-10.5 (test code = 775) RED BLOOD CELL COUNT (BEAKER) 3.97 M/ L 4.63-6.08 L (test code = 761) HEMOGLOBIN (BEAKER) (test code = 12.8 GM/DL 13.7-17.5 L 410) HEMATOCRIT (BEAKER) (test code = 40.8 % 40.1-51.0 411) MEAN CORPUSCULAR VOLUME (BEAKER) 102.8 fL 79.0-92.2 H (test code = 753) MEAN CORPUSCULAR HEMOGLOBIN 32.2 pg 25.7-32.2 (BEAKER) (test code = 751) MEAN CORPUSCULAR HEMOGLOBIN CONC 31.4 GM/DL 32.3-36.5 L (BEAKER) (test code = 752) RED CELL DISTRIBUTION WIDTH 13.2 % 11.6-14.4 (BEAKER) (test code = 412) PLATELET COUNT (BEAKER) (test 292 K/CU MM 150-450 code = 756) MEAN PLATELET VOLUME (BEAKER) 9.6 fL 9.4-12.4 (test code = 754) NUCLEATED RED BLOOD CELLS 0 /100 WBC 0-0 (BEAKER) (test code = 413) NEUTROPHILS RELATIVE PERCENT 73 % (BEAKER) (test code = 429) LYMPHOCYTES RELATIVE PERCENT 17 % (BEAKER) (test code = 430) MONOCYTES RELATIVE PERCENT 6 % (BEAKER) (test code = 431) EOSINOPHILS RELATIVE PERCENT 3 % (BEAKER) (test code = 432) BASOPHILS RELATIVE PERCENT 1 % (BEAKER) (test code = 437) NEUTROPHILS ABSOLUTE COUNT 5.62 K/ L 1.78-5.38 H (BEAKER) (test code = 670) LYMPHOCYTES ABSOLUTE COUNT 1.29 K/ L 1.32-3.57 L (BEAKER) (test code = 414) MONOCYTES ABSOLUTE COUNT (BEAKER) 0.47 K/ L 0.30-0.82 (test code = 415) EOSINOPHILS ABSOLUTE COUNT 0.21 K/ L 0.04-0.54 (BEAKER) (test code = 416) BASOPHILS ABSOLUTE COUNT (BEAKER) 0.05 K/ L 0.01-0.08 (test code = 417) IMMATURE GRANULOCYTES-RELATIVE 1 % 0-1 PERCENT (AKER) (test code = 2801) CALCIUM, [id number] 09:40:00 Test Item Value Reference Range Interpretation Comments CALCIUM IONIZED (BEAKER) (test 1.17 mmol/L 1.12-1.27 code = 698) PH, BLOOD ([facility]) (test code = 7.36 1810) POCT-GLUCOSE [id number] 08:24:00 Test Item Value Reference Range Interpretation Comments POC-GLUCOSE METER 120 mg/dL 70-110 H : TESTED A T [facility] 6720 (BEText A Cab) (test code = [facility], [facility]8) 14293: Machine [employer] Helper/Techni funmi ID = [id number] for DA VIS, KEYAIRA POCT-GLUCOSE [id number] 21:16:00 Test Item Value Reference Range Interpretation Comments POC-GLUCOSE METER 127 mg/dL 70-110 H : TESTED A T [facility] 6720 ([facility]) (test code = [facility], [facility]8) 36600: Machine [employer] Helper/Techni funmi ID = [id number] for GR AHAM, ADRIENNE POCT-GLUCOSE [id number] 17:14:00 Test Item Value Reference Range Interpretation Comments POC-GLUCOSE METER 89 mg/dL 70-110 : TESTED A T [facility] 6720 (BEText A Cab) (test code = [facility], [facility]8) 82594: Machine [employer] Helper/Techni funmi ID = [id number] for AARON S, KEYAIRA POCT-GLUCOSE [id number] 12:42:00 Test Item Value Reference Range Interpretation Comments POC-GLUCOSE METER 125 mg/dL 70-110 H : TESTED A T [facility] 6720 (BEText A Cab) (test code = [facility], 1538) 73678: [employer] Helper/Techni funmi ID = [id number] for DA VIS, KEYAIRA POCT-GLUCOSE [id number] 09:01:00 Test Item Value Reference Range Interpretation Comments POC-GLUCOSE METER 128 mg/dL 70-110 H : TESTED A T [facility] 6720 (BEText A Cab) (test code = [facility], 1538) 10164: [employer] Helper/Techni funmi ID = [id number] for DA VIS, KEYAIRA BASIC METABOLIC [id number] 05:47:00 Test Item Value Reference Range Interpretation Comments SODIUM (BEAKER) 138 meq/L 136-145 (test code = 381) POTASSIUM (BEAKER) 3.8 meq/L 3.5-5.1 (test code = 379) CHLORIDE (BEAKER) 105 meq/L 98-107 (test code = 382) CO2 (BEAKER) (test 21 meq/L 22-29 L code = 355) BLOOD UREA NITROGEN 6 mg/dL 7-21 L (BEAKER) (test code = 354) CREATININE (BEAKER) 0.67 mg/dL 0.57-1.25 (test code = 358) GLUCOSE RANDOM 125 mg/dL 70-105 H (BEAKER) (test code = 652) CALCIUM (BEAKER) 8.6 mg/dL 8.4-10.2 (test code = 697) EGFR (BEAKER) (test 137 mL/min/1.73 ESTIM ATED GFR IS code = 1092) sq m NOT ACCURATE CREATININE CLEARANCE IN PREDICTING GLOMERULAR FILTRATION RATE . ESTIMATED GFR I S NOT APPLICABLE FOR DIALYSIS PATIEN TS. [employer] ID - [id number] 05:47:00 Test Item Value Reference Range Interpretation Comments MAGNESIUM (BEAKER) (test code = 1.8 mg/dL 1.6-2.6 627) [employer] ID - [id number] 05:47:00 Test Item Value Reference Range Interpretation Comments PHOSPHORUS (BEAKER) (test code = 3.1 mg/dL 2.3-4.7 604) [employer] ID - EDASICBC W/PLT COUNT & AUTO [id number] 05:32:00 Test Item Value Reference Range Interpretation Comments WHITE BLOOD CELL COUNT (BEAKER) 7.5 K/ L 3.5-10.5 (test code = 775) RED BLOOD CELL COUNT (BEAKER) 3.70 M/ L 4.63-6.08 L (test code = 761) HEMOGLOBIN (BEAKER) (test code = 12.0 GM/DL 13.7-17.5 L 410) HEMATOCRIT (BEAKER) (test code = 36.9 % 40.1-51.0 L 411) MEAN CORPUSCULAR VOLUME (BEAKER) 99.7 fL 79.0-92.2 H (test code = 753) MEAN CORPUSCULAR HEMOGLOBIN 32.4 pg 25.7-32.2 H (BEAKER) (test code = 751) MEAN CORPUSCULAR HEMOGLOBIN CONC 32.5 GM/DL 32.3-36.5 (BEAKER) (test code = 752) RED CELL DISTRIBUTION WIDTH 13.2 % 11.6-14.4 (BEAKER) (test code = 412) PLATELET COUNT (BEAKER) (test 278 K/CU MM 150-450 code = 756) MEAN PLATELET VOLUME (BEAKER) 9.7 fL 9.4-12.4 (test code = 754) NUCLEATED RED BLOOD CELLS 0 /100 WBC 0-0 (BEAKER) (test code = 413) NEUTROPHILS RELATIVE PERCENT 72 % (BEAKER) (test code = 429) LYMPHOCYTES RELATIVE PERCENT 17 % (BEAKER) (test code = 430) MONOCYTES RELATIVE PERCENT 7 % (BEAKER) (test code = 431) EOSINOPHILS RELATIVE PERCENT 3 % (BEAKER) (test code = 432) BASOPHILS RELATIVE PERCENT 0 % (BEAKER) (test code = 437) NEUTROPHILS ABSOLUTE COUNT 5.40 K/ L 1.78-5.38 H (BEAKER) (test code = 670) LYMPHOCYTES ABSOLUTE COUNT 1.26 K/ L 1.32-3.57 L (BEAKER) (test code = 414) MONOCYTES ABSOLUTE COUNT (BEAKER) 0.53 K/ L 0.30-0.82 (test code = 415) EOSINOPHILS ABSOLUTE COUNT 0.20 K/ L 0.04-0.54 (BEAKER) (test code = 416) BASOPHILS ABSOLUTE COUNT (BEAKER) 0.03 K/ L 0.01-0.08 (test code = 417) IMMATURE GRANULOCYTES-RELATIVE 1 % 0-1 PERCENT (BEAKER) (test code = 2801) POCT-GLUCOSE [id number] 22:56:00 Test Item Value Reference Range Interpretation Comments POC-GLUCOSE METER 101 mg/dL 70-110 : TESTED A [facility] 6720 (BEAKER) (test code [facility], = 1538) 66269: Machine [employer] Helper/Techni fumni ID = [id number] for DEVAN WILLIAM POCT-GLUCOSE [id number] 16:55:00 Test Item Value Reference Range Interpretation Comments POC-GLUCOSE METER 114 mg/dL 70-110 H : TESTED A T [facility] 6720 (BEAKER) (test code = [facility], 1538) 51208: Machine [employer] Helper/Techni funmi ID = [id number] for Ellen Milner POCT-GLUCOSE [id number] 11:46:00 Test Item Value Reference Range Interpretation Comments POC-GLUCOSE METER 147 mg/dL 70-110 H : TESTED A T [facility] 6720 (BEAKER) (test code = [facility], 1538) 28363: [employer] Helper/Techni funmi ID = [id number] for Ellen Milner POCT-GLUCOSE [id number] 07:55:00 Test Item Value Reference Range Interpretation Comments POC-GLUCOSE METER 160 mg/dL 70-110 H : TESTED A T [facility] 6720 (BEAKER) (test code = [facility], 1538) 55942: [employer] Helper/Techni funmi ID = [id number] for Ellen Milner BASIC METABOLIC [id number] 06:01:00 Test Item Value Reference Range Interpretation Comments SODIUM (BEAKER) 138 meq/L 136-145 (test code = 381) POTASSIUM (BEAKER) 3.5 meq/L 3.5-5.1 (test code = 379) CHLORIDE (BEAKER) 104 meq/L 98-107 (test code = 382) CO2 (BEAKER) (test 24 meq/L 22-29 code = 355) BLOOD UREA NITROGEN 7 mg/dL 7-21 (BEAKER) (test code = 354) CREATININE (BEAKER) 0.67 mg/dL 0.57-1.25 (test code = 358) GLUCOSE RANDOM 147 mg/dL 70-105 H (BEAKER) (test code = 652) CALCIUM (BEAKER) 8.4 mg/dL 8.4-10.2 (test code = 697) EGFR (BEAKER) (test 137 mL/min/1.73 ESTIM ATED GFR IS code = 1092) sq m NOT ACCURATE CREATININE CLEARANCE IN PREDICTING GLOMERULAR FILTRATION RATE . ESTIMATED GFR I S NOT APPLICABLE FOR DIALYSIS PATIEN TS. [employer]per ID - [id number] 06:01:00 Test Item Value Reference Range Interpretation Comments MAGNESIUM (BEAKER) (test code = 2.0 mg/dL 1.6-2.6 627) [employer] ID - [id number] 06:01:00 Test Item Value Reference Range Interpretation Comments PHOSPHORUS (BEAKER) (test code = 2.9 mg/dL 2.3-4.7 604) [employer]per ID - EDASICALCIUM, [id number] 05:47:00 Test Item Value Reference Range Interpretation Comments CALCIUM IONIZED (BEAKER) (test 1.12 mmol/L 1.12-1.27 code = 698) PH, BLOOD (BEAKER) (test code = 7.35 1810) CBC W/PLT COUNT & AUTO [id number] 05:42:00 Test Item Value Reference Range Interpretation Comments WHITE BLOOD CELL COUNT (BEAKER) 6.8 K/ L 3.5-10.5 (test code = 775) RED BLOOD CELL COUNT (BEAKER) 3.80 M/ L 4.63-6.08 L (test code = 761) HEMOGLOBIN (BEAKER) (test code = 12.3 GM/DL 13.7-17.5 L 410) HEMATOCRIT (BEAKER) (test code = 37.6 % 40.1-51.0 L 411) MEAN CORPUSCULAR VOLUME (BEAKER) 98.9 fL 79.0-92.2 H (test code = 753) MEAN CORPUSCULAR HEMOGLOBIN 32.4 pg 25.7-32.2 H (BEAKER) (test code = 751) MEAN CORPUSCULAR HEMOGLOBIN CONC 32.7 GM/DL 32.3-36.5 (BEAKER) (test code = 752) RED CELL DISTRIBUTION WIDTH 13.3 % 11.6-14.4 (BEAKER) (test code = 412) PLATELET COUNT (BEAKER) (test 263 K/CU MM 150-450 code = 756) MEAN PLATELET VOLUME (BEAKER) 9.9 fL 9.4-12.4 (test code = 754) NUCLEATED RED BLOOD CELLS 0 /100 WBC 0-0 (BEAKER) (test code = 413) NEUTROPHILS RELATIVE PERCENT 63 % (BEAKER) (test code = 429) LYMPHOCYTES RELATIVE PERCENT 23 % (BEAKER) (test code = 430) MONOCYTES RELATIVE PERCENT 8 % (BEAKER) (test code = 431) EOSINOPHILS RELATIVE PERCENT 3 % (BEAKER) (test code = 432) BASOPHILS RELATIVE PERCENT 1 % (BEAKER) (test code = 437) NEUTROPHILS ABSOLUTE COUNT 4.29 K/ L 1.78-5.38 (BEAKER) (test code = 670) LYMPHOCYTES ABSOLUTE COUNT 1.54 K/ L 1.32-3.57 (BEAKER) (test code = 414) MONOCYTES ABSOLUTE COUNT (BEAKER) 0.57 K/ L 0.30-0.82 (test code = 415) EOSINOPHILS ABSOLUTE COUNT 0.23 K/ L 0.04-0.54 (BEAKER) (test code = 416) BASOPHILS ABSOLUTE COUNT (BEAKER) 0.04 K/ L 0.01-0.08 (test code = 417) IMMATURE GRANULOCYTES-RELATIVE 2 % 0-1 H PERCENT (BEAKER) (test code = 2801) POCT-GLUCOSE [id number] 21:27:00 Test Item Value Reference Range Interpretation Comments POC-GLUCOSE METER 159 mg/dL 70-110 H : TESTED A T [facility] 6720 (BEAKER) (test code = [facility], 153) 09489: Machine [employer] Helper/Techni funmi ID = [id number] for Lorna restrepo Anita Anaerobic [id number] 19:20:00 Test Item Value Reference Range Interpretation Comments Result (test code = 2+ Finegoldia magna A 6463-4) Lab Interpretation (test Abnormal code = 23685-0) [facility] [id number] 19:20:00 Test Item Value Reference Range Interpretation Comments CULTURE (BEAKER) (test code A 2+ Finegoldia magna = 1095) POCT-GLUCOSE [id number] 16:30:00 Test Item Value Reference Range Interpretation Comments POC-GLUCOSE METER 203 mg/dL 70-110 H : TESTED A T [facility] 6720 (BEAKER) (test code = [facility] [employer] [facility], 153) 24769: Machine [employer] Helper/Techni funmi ID = [id number] for RAISA ESCAMILLA R POCT-GLUCOSE [id number] 11:33:00 Test Item Value Reference Range Interpretation Comments POC-GLUCOSE METER 165 mg/dL 70-110 H : TESTED A T [facility] 6720 (BEAKER) (test code = [facility], 1538) 87968: Machine [employer] Helper/Techni funmi ID = [id number] for RAISA ESCAMILLA Wound culture + gram [id number] 10:12:00 Test Item Value Reference Range Interpretation Comments Result (test code = 1+ Gram A * - Acti notignum 6463-4) positive rods schaalii Gram Stain Result 1+ gram (test code = 1123) positive cocci in clusters LUCIO (test code = LUCIO) Lab Interpretation Abnormal (test code = 88167-2) [facility] [id number] 10:12:00 Test Item Value Reference Range Interpretation Comments CULTURE (BEAKER) A 1+ Gram pos itive (test code = rods* - Actinot ignum 1095) schaalii GRAM STAIN 1+ WBCs RESULT (BEAKER) (test code = 1123) GRAM STAIN <1+ gram negative RESULT (BEAKER) rods (test code = 231922) GRAM STAIN <1+ gram positive RESULT (BEAKER) rods (test code = 729827) GRAM STAIN 1+ gram positive RESULT (BEAKER) cocci in pairs (test code = 015680) GRAM STAIN 1+ gram positive RESULT (BEAKER) cocci in clusters (test code = 537511) POCT-GLUCOSE [id number] 07:39:00 Test Item Value Reference Range Interpretation Comments POC-GLUCOSE METER 197 mg/dL 70-110 H : TESTED A T [facility] 6720 (BEAKER) (test code = [facility], 1538) 94281: Machine [employer] Helper/Techni funmi ID = [id number] for RAISA ESCAMILLA BASIC METABOLIC [id number] 06:26:00 Test Item Value Reference Range Interpretation Comments SODIUM (BEAKER) 136 meq/L 136-145 (test code = 381) POTASSIUM (BEAKER) 3.6 meq/L 3.5-5.1 (test code = 379) CHLORIDE (BEAKER) 101 meq/L 98-107 (test code = 382) CO2 (BEAKER) (test 23 meq/L 22-29 code = 355) BLOOD UREA NITROGEN 9 mg/dL 7-21 (BEAKER) (test code = 354) CREATININE (BEAKER) 0.74 mg/dL 0.57-1.25 (test code = 358) GLUCOSE RANDOM 187 mg/dL 70-105 H (BEAKER) (test code = 652) CALCIUM (BEAKER) 8.4 mg/dL 8.4-10.2 (test code = 697) EGFR (BEAKER) (test 123 mL/min/1.73 ESTIM ATED GFR IS code = 1092) sq m NOT ACCURATE CREATININE CLEARANCE IN PREDICTING GLOMERULAR FILTRATION RATE . ESTIMATED GFR I S NOT APPLICABLE FOR DIALYSIS PATIEN TS. [employer] Helper ID - NATASHA [id number] 06:26:00 Test Item Value Reference Range Interpretation Comments MAGNESIUM (BEAKER) (test code = 1.9 mg/dL 1.6-2.6 627) [employer] Helper ID - NATASHA [id number] 06:26:00 Test Item Value Reference Range Interpretation Comments PHOSPHORUS (BEAKER) (test code = 2.6 mg/dL 2.3-4.7 604) [employer] Helper ID - NATASHA MCALCIUM, [id number] 05:20:00 Test Item Value Reference Range Interpretation Comments CALCIUM IONIZED (BEAKER) (test 1.12 mmol/L 1.12-1.27 code = 698) PH, BLOOD (BEAKER) (test code = 7.31 1810) CBC W/PLT COUNT & AUTO [id number] 05:19:00 Test Item Value Reference Range Interpretation Comments WHITE BLOOD CELL COUNT (BEAKER) 6.8 K/ L 3.5-10.5 (test code = 775) RED BLOOD CELL COUNT (BEAKER) 3.77 M/ L 4.63-6.08 L (test code = 761) HEMOGLOBIN (BEAKER) (test code = 12.1 GM/DL 13.7-17.5 L 410) HEMATOCRIT (BEAKER) (test code = 38.0 % 40.1-51.0 L 411) MEAN CORPUSCULAR VOLUME (BEAKER) 100.8 fL 79.0-92.2 H (test code = 753) MEAN CORPUSCULAR HEMOGLOBIN 32.1 pg 25.7-32.2 (BEAKER) (test code = 751) MEAN CORPUSCULAR HEMOGLOBIN CONC 31.8 GM/DL 32.3-36.5 L (BEAKER) (test code = 752) RED CELL DISTRIBUTION WIDTH 13.7 % 11.6-14.4 (BEAKER) (test code = 412) PLATELET COUNT (BEAKER) (test 251 K/CU MM 150-450 code = 756) MEAN PLATELET VOLUME (BEAKER) 10.1 fL 9.4-12.4 (test code = 754) NUCLEATED RED BLOOD CELLS 0 /100 WBC 0-0 (BEAKER) (test code = 413) NEUTROPHILS RELATIVE PERCENT 67 % (BEAKER) (test code = 429) LYMPHOCYTES RELATIVE PERCENT 20 % (BEAKER) (test code = 430) MONOCYTES RELATIVE PERCENT 9 % (BEAKER) (test code = 431) EOSINOPHILS RELATIVE PERCENT 3 % (BEAKER) (test code = 432) BASOPHILS RELATIVE PERCENT 1 % (BEAKER) (test code = 437) NEUTROPHILS ABSOLUTE COUNT 4.57 K/ L 1.78-5.38 (BEAKER) (test code = 670) LYMPHOCYTES ABSOLUTE COUNT 1.38 K/ L 1.32-3.57 (BEAKER) (test code = 414) MONOCYTES ABSOLUTE COUNT (BEAKER) 0.58 K/ L 0.30-0.82 (test code = 415) EOSINOPHILS ABSOLUTE COUNT 0.20 K/ L 0.04-0.54 (BEAKER) (test code = 416) BASOPHILS ABSOLUTE COUNT (BEAKER) 0.04 K/ L 0.01-0.08 (test code = 417) IMMATURE GRANULOCYTES-RELATIVE 1 % 0-1 PERCENT (BEAKER) (test code = 2801) POCT-GLUCOSE [id number] 21:22:00 Test Item Value Reference Range Interpretation Comments POC-GLUCOSE METER 220 mg/dL 70-110 H : TESTED A T [facility] 6720 (BEAKER) (test code = [facility], 153) 25001: Machine [employer] Helper/Techni funmi ID = [id number] for ANASTACIO ALMEIDA POCT-GLUCOSE [id number] 18:39:00 Test Item Value Reference Range Interpretation Comments POC-GLUCOSE METER 221 mg/dL 70-110 H : TESTED A T [facility] 6720 (BEAKER) (test code = [facility], 1538) 73812: Machine [employer] Helper/Techni funmi ID = [id number] for RAISA ESCAMILLA POCT-GLUCOSE [id number] 16:49:00 Test Item Value Reference Range Interpretation Comments POC-GLUCOSE METER 185 mg/dL 70-110 H : TESTED A T [facility] 6720 (BEAKER) (test code = [facility], 1538) 82749: Machine [employer] Helper/Techni funmi ID = [id number] for KATHLEEN LANGE POCT-GLUCOSE [id number] 12:31:00 Test Item Value Reference Range Interpretation Comments POC-GLUCOSE METER 206 mg/dL 70-110 H : TESTED A T [facility] 6720 (BEAKER) (test code = [facility], 1538) 11262: Machine [employer] Helper/Techni funmi ID = [id number] for RAISA ESCAMILLA BASIC METABOLIC [id number] 05:43:00 Test Item Value Reference Range Interpretation Comments SODIUM (BEAKER) 135 meq/L 136-145 L (test code = 381) POTASSIUM (BEAKER) 3.7 meq/L 3.5-5.1 (test code = 379) CHLORIDE (BEAKER) 101 meq/L 98-107 (test code = 382) CO2 (BEAKER) (test 22 meq/L 22-29 code = 355) BLOOD UREA NITROGEN 9 mg/dL 7-21 (BEAKER) (test code = 354) CREATININE (BEAKER) 0.73 mg/dL 0.57-1.25 (test code = 358) GLUCOSE RANDOM 198 mg/dL 70-105 H (BEAKER) (test code = 652) CALCIUM (BEAKER) 8.4 mg/dL 8.4-10.2 (test code = 697) EGFR (BEAKER) (test 125 mL/min/1.73 ESTIM ATED GFR IS code = 1092) sq m NOT ACCURATE CREATININE CLEARANCE IN PREDICTING GLOMERULAR FILTRATION RATE . ESTIMATED GFR I S NOT APPLICABLE FOR DIALYSIS PATIEN TS. Machine [employer] Helper ID - [id number] 05:43:00 Test Item Value Reference Range Interpretation Comments MAGNESIUM (BEAKER) (test code = 2.0 mg/dL 1.6-2.6 627) [employer] Helper ID - [id number] 05:43:00 Test Item Value Reference Range Interpretation Comments PHOSPHORUS (BEAKER) (test code = 2.9 mg/dL 2.3-4.7 604) [employer] Helper ID - EDASIPOCT-GLUCOSE [id number] 05:40:00 Test Item Value Reference Range Interpretation Comments POC-GLUCOSE METER 200 mg/dL 70-110 H : TESTED A T [facility] 6720 (BEAKER) (test code = [facility], 1538) 89650: Machine [employer] Helper/Techni funmi ID = [id number] for ANASTACIO ALMEIDA CALCIUM, [id number] 05:27:00 Test Item Value Reference Range Interpretation Comments CALCIUM IONIZED (BEAKER) (test 1.11 mmol/L 1.12-1.27 L code = 698) PH, BLOOD (BEAKER) (test code = 7.32 1810) HEMOGLOBIN AND [id number] 05:21:00 Test Item Value Reference Range Interpretation Comments HEMOGLOBIN (BEAKER) (test code = 12.0 GM/DL 13.7-17.5 L 410) HEMATOCRIT (BEAKER) (test code = 37.8 % 40.1-51.0 L 411) [employer] Helper ID - 6000POCT-GLUCOSE [id number] 21:50:00 Test Item Value Reference Range Interpretation Comments POC-GLUCOSE METER 151 mg/dL 70-110 H : TESTED A T [facility] 6720 (BEAKER) (test code = [facility], 1538) 77454: Machine [employer] Helper/Techni funmi ID = [id number] for JAIME ALMEIDAA POCT-GLUCOSE [id number] 16:40:00 Test Item Value Reference Range Interpretation Comments POC-GLUCOSE METER 236 mg/dL 70-110 H : TESTED A T [facility] 6720 (BEAKER) (test code = [facility], 1538) 77294: Machine [employer] Helper/Techni funmi ID = [id number] for Ellen Milner SPIN/CONCENTRATION [id number] 14:16:00 Test Item Value Reference Range Interpretation Comments Concentration charged (test code = Done 2657) [facility] [id number] 14:16:00 Test Item Value Reference Range Interpretation Comments CONCENTRATION CHARGED (BEAKER) (test Done code = 2657) POCT-GLUCOSE [id number] 11:36:00 Test Item Value Reference Range Interpretation Comments POC-GLUCOSE METER 235 mg/dL 70-110 H : TESTED A T [facility] 6720 (BEAKER) (test code = [facility] [place], 1538) 83594: Machine [employer] Helper/Techni funmi ID = [id number] for Ellen Milner POCT-GLUCOSE [id number] 07:47:00 Test Item Value Reference Range Interpretation Comments POC-GLUCOSE METER 248 mg/dL 70-110 H : TESTED A T [facility] 6720 (BEAKER) (test code = [facility] [place], 1538) 61701: Machine [employer] Helper/Techni funmi ID = [id number] for Ellen Milner Hemoglobin [id number] 07:25:00 Test Item Value Reference Range Interpretation Comments Hemoglobin A1C (test code = 4548-4) 10.0 % 4.3-6.1 H Lab Interpretation (test code = Abnormal 17818-3) [facility] [id number] 07:25:00 Test Item Value Reference Range Interpretation Comments HEMOGLOBIN A1C (BEAKER) (test code = 10.0 % 4.3-6.1 H 368) TSH/Free T4 If [id number] 06:26:00 Test Item Value Reference Range Interpretation Comments TSH (test code = 1.138 See_Comment [Automated 48335-8) message] The system which generated this result transmit shell reference range : 0.350 - 4.940 uIU/mL. The reference range was not used to interpret this result as normal/abnormal . LUCIO (test code = LUCIO) [employer] ID - PIAYA L Lab Interpretation Normal (test code = 49976-4) [facility] [id number] 06:26:00 Test Item Value Reference Range Interpretation Comments THYROID STIMULATING HORMONE 1.138 uIU/mL 0.350-4.940 (BEAKER) (test code = 772) [employer] ID - PIAYA LBASIC METABOLIC [id number] 06:02:00 Test Item Value Reference Range Interpretation Comments SODIUM (BEAKER) 134 meq/L 136-145 L (test code = 381) POTASSIUM (BEAKER) 4.2 meq/L 3.5-5.1 Specimen slightly (test code = 379) hemolyzed CHLORIDE (BEAKER) 100 meq/L 98-107 (test code = 382) CO2 (BEAKER) (test 24 meq/L 22-29 code = 355) BLOOD UREA NITROGEN 10 mg/dL 7-21 (BEAKER) (test code = 354) CREATININE (BEAKER) 0.83 mg/dL 0.57-1.25 Specimen slightly (test code = 358) hemolyzed GLUCOSE RANDOM 230 mg/dL 70-105 H (BEAKER) (test code = 652) CALCIUM (BEAKER) 7.9 mg/dL 8.4-10.2 L (test code = 697) EGFR (BEAKER) (test 107 mL/min/1.73 ESTIM ATED GFR IS code = 1092) sq m NOT ACCURATE CREATININE CLEARANCE IN PREDICTING GLOMERULAR FILTRATION RATE . ESTIMATED GFR I S NOT APPLICABLE FOR DIALYSIS PATIEN TS. [employer] ID - PIGREGORY [id number] 06:01:00 Test Item Value Reference Range Interpretation Comments MAGNESIUM (BEAKER) 1.9 mg/dL 1.6-2.6 Specimen slightly (test code = 627) hemolyzed [employer] ID - PIGREGORY [id number] 06:01:00 Test Item Value Reference Range Interpretation Comments PHOSPHORUS (BEAKER) 2.9 mg/dL 2.3-4.7 Specimen slightly (test code = 604) hemolyzed [employer] ID - PIGREGORY LCALCIUM, [id number] 05:55:00 Test Item Value Reference Range Interpretation Comments CALCIUM IONIZED (BEAKER) (test 1.09 mmol/L 1.12-1.27 L code = 698) PH, BLOOD (BEAKER) (test code = 7.31 1810) CBC W/PLT COUNT & AUTO [id number] 05:42:00 Test Item Value Reference Range Interpretation Comments WHITE BLOOD CELL COUNT (BEAKER) 7.5 K/ L 3.5-10.5 (test code = 775) RED BLOOD CELL COUNT (BEAKER) 3.65 M/ L 4.63-6.08 L (test code = 761) HEMOGLOBIN (BEAKER) (test code = 11.8 GM/DL 13.7-17.5 L 410) HEMATOCRIT (BEAKER) (test code = 37.3 % 40.1-51.0 L 411) MEAN CORPUSCULAR VOLUME (BEAKER) 102.2 fL 79.0-92.2 H (test code = 753) MEAN CORPUSCULAR HEMOGLOBIN 32.3 pg 25.7-32.2 H (BEAKER) (test code = 751) MEAN CORPUSCULAR HEMOGLOBIN CONC 31.6 GM/DL 32.3-36.5 L (BEAKER) (test code = 752) RED CELL DISTRIBUTION WIDTH 13.5 % 11.6-14.4 (BEAKER) (test code = 412) PLATELET COUNT (BEAKER) (test 205 K/CU MM 150-450 code = 756) MEAN PLATELET VOLUME (BEAKER) 10.4 fL 9.4-12.4 (test code = 754) NUCLEATED RED BLOOD CELLS 0 /100 WBC 0-0 (BEAKER) (test code = 413) NEUTROPHILS RELATIVE PERCENT 74 % (BEAKER) (test code = 429) LYMPHOCYTES RELATIVE PERCENT 12 % (BEAKER) (test code = 430) MONOCYTES RELATIVE PERCENT 11 % (BEAKER) (test code = 431) EOSINOPHILS RELATIVE PERCENT 3 % (BEAKER) (test code = 432) BASOPHILS RELATIVE PERCENT 0 % (BEAKER) (test code = 437) NEUTROPHILS ABSOLUTE COUNT 5.49 K/ L 1.78-5.38 H (BEAKER) (test code = 670) LYMPHOCYTES ABSOLUTE COUNT 0.91 K/ L 1.32-3.57 L (BEAKER) (test code = 414) MONOCYTES ABSOLUTE COUNT (BEAKER) 0.78 K/ L 0.30-0.82 (test code = 415) EOSINOPHILS ABSOLUTE COUNT 0.20 K/ L 0.04-0.54 (BEAKER) (test code = 416) BASOPHILS ABSOLUTE COUNT (BEAKER) 0.03 K/ L 0.01-0.08 (test code = 417) IMMATURE GRANULOCYTES-RELATIVE 1 % 0-1 PERCENT (BEAKER) (test code = 2801) POCT-GLUCOSE [id number] 21:10:00 Test Item Value Reference Range Interpretation Comments POC-GLUCOSE METER 234 mg/dL 70-110 H : [facility] (BEAKER) (test code = SAROJ WOODY, 1538) 72849: Machine Long Goods Helper/Techni funmi ID = [id number] for Anita Liz POCT-GLUCOSE [id number] 18:13:00 Test Item Value Reference Range Interpretation Comments POC-GLUCOSE METER 321 mg/dL 70-110 H : TESTED A T [facility] 6720 (DARBY) (test code = SAROJ JERRY SC, 1538) 78789: Machine Long Good[employer] Helper/Techni funmi ID = [id number] for JANETT YEBOAH SARS-COV2/RT-PCR ([facility])2020-10-26 11:15:00 Test Item Value Reference Range Interpretation Comments SARS-COV2/RT-PCR (test Negative Not Detected, Negative, code = 8709041) See external report for linked test SARS-COV-[address] [facility] DEISI (test code = 2589904) Negative result for this test determines that SARS-CoV-2 RNA was not present in the specimen above the Limit of Detection (LOD). However, Negative results do not preclude SARS-CoV-2 infection and should not be used as the sole basis for treatment or patient management decisions. Negative results mustbe combined with clinical observations, patient history, and epidemiological information. A false negative result may occur if a specimen is improperly collected, transported or handled. A false negative result should be considered if patient's recent exposures or clinical presentation indicate that COVID-19 (SARS-CoV-2) is likely and diagnostic tests for other causes of illness are negative. Re-testing should be considered in cases of suspected false negatives.The limit of detection for this assay is 800 copies/mL.This SARS CoV-2 test is a real-time RT-PCR test intended for the qualitative detection of nucleic acid from SARS-CoV-2 in a nasopharyngeal swab specimen collected from individuals susp ected of COVID-19 by their healthcare provider.This test has not been Food and Drug Administration (FDA) cleared or approved. This is a modified version of an approved Emergency Use Authorization (EUA) and is in the process of review by the FDA. Once authorized by the FDA, the issued EUA will be effective until the declaration that circumstances exist justifying the authorization of the emergency use of in vitro diagnostic tests for detection and/or diagnosis of COVID-19 is terminated under Section 564(b)(2) of the Act or the EUA is revoked under Section 564(g) of the Act.Fact Sheet for Healthcare Providers:https://www.[employer]/sites/default/files/product/documents/Fact_Shee y_ZX_Pnevqdlpb_Cleh_DXCF-LzJ-9.pdfFact Sheet for Healthcare Patients:https://www.[employer]/sites/default/files/product/ documents/Njit_Yolrz_Xtqahwkc_Miur_BMRX-QkB-2.pdfPerforming Laboratory:[facility], [place] [address]YFKVA METABOLIC PANEL 2020-10-26 11:12:00 Test Item Value Reference Range Interpretation Comments SODIUM (BEAKER) 134 meq/L 136-145 L (test code = 381) POTASSIUM (BEAKER) 4.7 meq/L 3.5-5.1 Specimen slightly (test code = 379) hemolyzed CHLORIDE (BEAKER) 101 meq/L 98-107 (test code = 382) CO2 (BEAKER) (test 20 meq/L 22-29 L code = 355) BLOOD UREA NITROGEN 9 mg/dL 7-21 (BEAKER) (test code = 354) CREATININE (BEAKER) 1.03 mg/dL 0.57-1.25 Specimen slightly (test code = 358) hemolyzed GLUCOSE RANDOM 319 mg/dL 70-105 H (BEAKER) (test code = 652) CALCIUM (BEAKER) 8.1 mg/dL 8.4-10.2 L (test code = 697) EGFR (BEAKER) (test 84 mL/min/1.73 ESTIMA SHELL GFR IS code = 1092) sq m NOT ACCURATE CREATININE CLEARANCE IN PREDICTING GLOMERULAR FILTRATION RATE . ESTIMATED GFR I S NOT APPLICABLE FOR DIALYSIS PATIEN TS. Machine [employer] Good[employer] Helper ID - WARD FCBC W/PLT COUNT & AUTO [id number] 10:52:00 Test Item Value Reference Range Interpretation Comments WHITE BLOOD CELL COUNT (BEAKER) 10.6 K/ L 3.5-10.5 H (test code = 775) RED BLOOD CELL COUNT (BEAKER) 3.65 M/ L 4.63-6.08 L (test code = 761) HEMOGLOBIN (BEAKER) (test code = 12.0 GM/DL 13.7-17.5 L 410) HEMATOCRIT (BEAKER) (test code = 37.6 % 40.1-51.0 L 411) MEAN CORPUSCULAR VOLUME (BEAKER) 103.0 fL 79.0-92.2 H (test code = 753) MEAN CORPUSCULAR HEMOGLOBIN 32.9 pg 25.7-32.2 H (BEAKER) (test code = 751) MEAN CORPUSCULAR HEMOGLOBIN CONC 31.9 GM/DL 32.3-36.5 L (BEAKER) (test code = 752) RED CELL DISTRIBUTION WIDTH 12.8 % 11.6-14.4 (BEAKER) (test code = 412) PLATELET COUNT (BEAKER) (test 204 K/CU MM 150-450 code = 756) MEAN PLATELET VOLUME (BEAKER) 10.2 fL 9.4-12.4 (test code = 754) NUCLEATED RED BLOOD CELLS 0 /100 WBC 0-0 (BEAKER) (test code = 413) NEUTROPHILS RELATIVE PERCENT 74 % (BEAKER) (test code = 429) LYMPHOCYTES RELATIVE PERCENT 14 % (BEAKER) (test code = 430) MONOCYTES RELATIVE PERCENT 10 % (BEAKER) (test code = 431) EOSINOPHILS RELATIVE PERCENT 1 % (BEAKER) (test code = 432) BASOPHILS RELATIVE PERCENT 0 % (BEAKER) (test code = 437) NEUTROPHILS ABSOLUTE COUNT 7.78 K/ L 1.78-5.38 H (BEAKER) (test code = 670) LYMPHOCYTES ABSOLUTE COUNT 1.48 K/ L 1.32-3.57 (BEAKER) (test code = 414) MONOCYTES ABSOLUTE COUNT (BEAKER) 1.07 K/ L 0.30-0.82 H (test code = 415) EOSINOPHILS ABSOLUTE COUNT 0.14 K/ L 0.04-0.54 (BEAKER) (test code = 416) BASOPHILS ABSOLUTE COUNT (BEAKER) 0.03 K/ L 0.01-0.08 (test code = 417) IMMATURE GRANULOCYTES-RELATIVE 1 % 0-1 PERCENT (BEAKER) (test code = 2801) POCT-GLUCOSE [id number] 10:37:00 Test Item Value Reference Range Interpretation Comments POC-GLUCOSE METER 282 mg/dL 70-110 H : TESTED A T [facility] 6720 (BEAKER) (test code = SAROJ WOODY, 1538) 41069: Machine Long Goods Helper/Techni funmi ID = [id number] for LUCIO WALLER Lactic acid, [id number] 06:50:00 Test Item Value Reference Range Interpretation Comments Lactate, Venous (test code 1.01 mmol/L 0.5-2.2 = 2872) LUCIO (test code = LUCIO) Machine [employer] Helper ID - CIPRIANO F Lab Interpretation (test Normal code = 60786-9) [facility] CenterLACTIC ACID, [id number] 06:50:00 Test Item Value Reference Range Interpretation Comments LACTATE BLOOD VENOUS (2) (BEAKER) 1.01 mmol/L 0.50-2.20 (test code = 2872) [employer] Helper ID Nini COTA FComprehensive metabolic [id number] 06:40:00 Test Item Value Reference Range Interpretation Comments Protein, Total (test 7.0 See_Comment Specime n slightly code = 2885-2) hemolyzed [Automated message] The system which generated this result transmit shell reference range : 6.0 - 8.3 gm/dL . The reference range was not u sed to interpret th is result as normal/abnormal . Albumin (test code = 3.5 g/dL 3.5-5 Specime n slightly 35235-8) hemolyzed Alkaline Phosphatase 107 U/L 40-150 (test code = 6768-6) Total Bilirubin (test 0.7 mg/dL 0.2-1.2 Specim en slightly code = 1975-2) hemolyzed Sodium (test code = 135 meq/L 136-145 L 2951-2) Potassium (test code 4.0 meq/L 3.5-5.1 Specime n slightly = 2823-3) hemolyzed Chloride (test code = 100 meq/L 98-107 2075-0) CO2 (test code = 19 meq/L 22-29 L 2028-9) BUN (test code = 8 mg/dL 7-21 3094-0) Creatinine (test code 0.79 mg/dL 0.57-1.25 Specim en slightly = 2160-0) hemolyzed Glucose (test code = 259 mg/dL 70-105 H 2345-7) Calcium (test code = 8.8 mg/dL 8.4-10.2 75821-1) AST (test code = 31 U/L 5-34 Specimen sl ightly 1920-8) hemolyzed ALT (test code = 58 U/L 6-55 H Specimen sl ightly 1742-6) hemolyzed EGFR (test code = 114 mL/min/1.73 [place] [address]-3) NOT ACCURATE CREATININE CLEARANCE IN PREDICTING GLOMERULAR FILTRATION RATE . ESTIMATED GFR I S NOT APPLICABLE FOR DIALYSIS PATIEN TS. LUCIO (test code = LUCIO) Machine [employer] Goods Helper ID Nini Marin Lab Interpretation Abnormal (test code = 20402-7) [facility] [id number] 06:40:00 Test Item Value Reference Range Interpretation Comments TOTAL PROTEIN 7.0 gm/dL 6.0-8.3 Specimen sligh tly (BEAKER) (test code = hemoly zed 770) ALBUMIN (BEAKER) 3.5 g/dL 3.5-5.0 Specimen sl ightly (test code = 1145) hemolyzed ALKALINE PHOSPHATASE 107 U/L 40-150 (BEAKER) (test code = 346) BILIRUBIN TOTAL 0.7 mg/dL 0.2-1.2 Specimen sli ghtly (BEAKER) (test code = hemoly zed 377) SODIUM (BEAKER) (test 135 meq/L 136-145 L code = 381) POTASSIUM (BEAKER) 4.0 meq/L 3.5-5.1 Specimen slightly (test code = 379) hemolyzed CHLORIDE (BEAKER) 100 meq/L 98-107 (test code = 382) CO2 (BEAKER) (test 19 meq/L 22-29 L code = 355) BLOOD UREA NITROGEN 8 mg/dL 7-21 (BEAKER) (test code = 354) CREATININE (BEAKER) 0.79 mg/dL 0.57-1.25 Specimen slightly (test code = 358) hemolyzed GLUCOSE RANDOM 259 mg/dL 70-105 H (BEAKER) (test code = 652) CALCIUM (BEAKER) 8.8 mg/dL 8.4-10.2 (test code = 697) AST (SGOT) (BEAKER) 31 U/L 5-34 Specimen slightly (test code = 353) hemolyzed ALT (SGPT) (BEAKER) 58 U/L 6-55 H Specimen slightly (test code = 347) hemolyzed EGFR (BEAKER) (test 114 ESTIMATE D GFR IS code = 1092) mL/min/1.73 sq NOT ACCURA TE m CREATININE CLEARANCE IN PREDICTING GLOMERULAR FILTRATION RATE . ESTIMATED GFR I S NOT APPLICABLE FOR DIALYSIS PATIEN TS. Machine Long Goods Helper ID Nini PATEL LProthrombin time/[id number] 06:39:00 Test Item Value Reference Interpretation Comments Range Protime (test code = 13.8 See_Comment [Autom ated 5902-2) message] The system which generated this result transmitted reference range : 11.9 - 14.2 seconds. The reference range was not used to interpret this result as normal/abnormal . INR (test code = 1.10 See_Comment [Automated 6301-6) message] The system which generated this result transmitted reference range : <=5.90. The reference range was not used to interpret this result as normal/abnormal . LUCIO (test code = Effective 04/17/2019: LUCIO) PT Reference Range ChangeNew: 11.9-14.2 Previous: 11.7-14.7 RECOMMENDED COUMADIN/WARFARIN INR THERAPY RANGESSTANDARD DOSE: 2.0-3.0 Includes: PROPHYLAXIS for venous thrombosis, systemic embolization; TREATMENT for venous thrombosis and/or pulmonary embolus.HIGH RISK: Target INR is 2.5-3.5 for patients wiht mechanical heart valves. Lab Interpretation Normal (test code = 58474-6) [facility] Center[facility]OM[id number] 06:39:00 Test Item Value Reference Range Interpretation Comments PROTIME (BEAKER) (test code = 13.8 seconds 11.9-14.2 759) INR (BEAKER) (test code = 370) 1.10 <=5.90 Effective 04/17/2019: PT Reference Range ChangeNew: 11.9-14.2 Previous: 11.7- 14.7RECOMMENDED COUMADIN/WARFARIN INR THERAPY RANGESSTANDARD DOSE: 2.0-3.0 Includes: PROPHYLAXIS for venous thrombosis, systemic embolization; TREATMENT for venous thrombosis and/or pulmonary embolus.HIGH RISK: Target INR is2.5-3.5 for patients wiht mechanical heart valves.CBC W/PLT COUNT & AUTO [id number] 06:16:00 Test Item Value Reference Range Interpretation Comments WHITE BLOOD CELL COUNT (BEAKER) 10.3 K/ L 3.5-10.5 (test code = 775) RED BLOOD CELL COUNT (BEAKER) 3.80 M/ L 4.63-6.08 L (test code = 761) HEMOGLOBIN (BEAKER) (test code = 12.3 GM/DL 13.7-17.5 L 410) HEMATOCRIT (BEAKER) (test code = 38.2 % 40.1-51.0 L 411) MEAN CORPUSCULAR VOLUME (BEAKER) 100.5 fL 79.0-92.2 H (test code = 753) MEAN CORPUSCULAR HEMOGLOBIN 32.4 pg 25.7-32.2 H (BEAKER) (test code = 751) MEAN CORPUSCULAR HEMOGLOBIN CONC 32.2 GM/DL 32.3-36.5 L (BEAKER) (test code = 752) RED CELL DISTRIBUTION WIDTH 12.7 % 11.6-14.4 (BEAKER) (test code = 412) PLATELET COUNT (BEAKER) (test 191 K/CU MM 150-450 code = 756) MEAN PLATELET VOLUME (BEAKER) 10.8 fL 9.4-12.4 (test code = 754) NUCLEATED RED BLOOD CELLS 0 /100 WBC 0-0 (BEAKER) (test code = 413) NEUTROPHILS RELATIVE PERCENT 74 % (BEAKER) (test code = 429) LYMPHOCYTES RELATIVE PERCENT 14 % (BEAKER) (test code = 430) MONOCYTES RELATIVE PERCENT 10 % (BEAKER) (test code = 431) EOSINOPHILS RELATIVE PERCENT 2 % (BEAKER) (test code = 432) BASOPHILS RELATIVE PERCENT 0 % (BEAKER) (test code = 437) NEUTROPHILS ABSOLUTE COUNT 7.58 K/ L 1.78-5.38 H (BEAKER) (test code = 670) LYMPHOCYTES ABSOLUTE COUNT 1.45 K/ L 1.32-3.57 (BEAKER) (test code = 414) MONOCYTES ABSOLUTE COUNT (BEAKER) 0.97 K/ L 0.30-0.82 H (test code = 415) EOSINOPHILS ABSOLUTE COUNT 0.16 K/ L 0.04-0.54 (BEAKER) (test code = 416) BASOPHILS ABSOLUTE COUNT (BEAKER) 0.04 K/ L 0.01-0.08 (test code = 417) IMMATURE GRANULOCYTES-RELATIVE 1 % 0-1 PERCENT (BEAKER) (test code = 8771)
[2021-01-23] MEDS ORDERED: NA CHLORIDE 0.9% 1,000 ML ONE (14:11)
[2021-01-23] MEDS ORDERED: ONDANSETRON 4 MG/2 ML VIAL ONE (14:11)
--- NOTE | 2021-01-23 14:32 | RAD REPORT ---
EXAM DESCRIPTION: RAD - Chest Single View - 01/23/2021 1:34 pm CLINICAL HISTORY: DYSPNEA, COVID positive COMPARISON: Two view chest January 2012 TECHNIQUE: AP portable chest image was obtained 01/23/2021 1:34 pm . FINDINGS: Lung volumes are low. Bilateral peripheral airspace opacities are present moderate in fred rity. This is most likely a COVID-19 pneumonia given the provided history. Influenza pneumonia and or ganizing pneumonia can have this appearance along with drug toxicity and autoimmune disorders. Heart and vasculature are normal. No measurable pleural effusion and no pneumothorax. No acute bony abnormality seen. No acute aortic findings suspected. IMPRESSION: Moderate severity bilateral COVID-19 pneumonia.
[2021-01-23 14:43] LABS: Basophils % 0.4 % (0-1.3); Hematocrit 45.6 % (39.6-49.0); Lymphocytes % 16.7 % (15.3-44.8); MPV 10.2 fL (7.6-11.3); Protime INR 1.19; RBC Red Blood Cell Count 4.95 M/uL (4.33-5.43)
[2021-01-23 14:44] LABS: ALT/SGPT 132 U/L (12-78); AST/SGOT 88 U/L (15-37); Albumin 3.3 g/dL (3.4-5.0); Alkaline Phosphatase 98 U/L (45-117); BUN Blood Urea Nitrogen 8 mg/dL (7-18); Bicarbonate 27 mmol/L (21-32); Bilirubin Direct 0.3 mg/dL (0-0.2); Bilirubin Total 0.8 mg/dL (0.2-1.0); Ferritin 967.9 ng/mL (26-388); Glucose Level 280 mg/dL (74-106); Lipase 58 U/L (73-393); Potassium 3.8 mmol/L (3.5-5.1); Protein, Total 7.9 g/dL (6.4-8.2); Sodium Level 129 mmol/L (136-145); Troponin (Emerg Dept Use Only) < 0.02 ng/mL (0.0-0.045)
--- NOTE | 2021-01-23 15:29 | RAD REPORT ---
EXAM DESCRIPTION: CT - Chest For Pe Angio - 01/23/2021 3:20 pm CLINICAL HISTORY: DYSPNEA No COVID positive, shortness of breath, chest tightness COMPARISON: Chest Single View dated 01/23/2021 TECHNIQUE: Dynamically enhanced 3 mm thick images of the chest were obtained during administration o f approximately 150mL Isovue 370 IV contrast. Coronal and oblique MIP reconstruction images were gene rated and reviewed. Exam utilizes a protocol to evaluate the pulmonary arterial tree. All CT scans are performed using dose optimization technique as appropriate and may include automated exposure control or mA/KV adjustment according to patient size. FINDINGS: No pulmonary emboli are identified. The aorta as imaged shows no acute or suspicious finding. No pericardial thickening or effusion. Extensive airspace opacification is present throughout the lung hopkins sparing the lingula and somewh at sparing each posterior lung base. This is a commonly described pattern in COVID-19 pneumonia. Kalyn mónica is also described in influence pneumonia, organizing pneumonia, drug toxicity in some autoimmune diseases. No pneumothorax or pleural effusion. No pleural based mass. No mediastinal or hilar suspicious masses. No chest wall masses or abnormal axillary lymphadenopathy. IMPRESSION: No pulmonary emboli identified. Moderate severity bilateral COVID-19 pneumonia.
--- NOTE | 2021-01-23 16:12 | EDPHYS ---
Physician Documentation [facility] Name: Wilder Blair Age: 35 yrs Sex: Male : 1985 Arrival Date: 01/23/2021 Time: 12:37 Bed 18 Private MD: Jed [facility] ED Physician Pako Anton HPI: 01/23 13:27 This 35 yrs old Male presents to ER via Ambulatory with complaints of kb Breathing Difficulty. 13:27 The patient or guardian reports cough, that is intermittent, described as mild, kb difficulty breathing, flu symptoms, low-grade fever, myalgias, no appetite. Onset: The symptoms/episode began/occurred 5 day(s) ago. Severity of symptoms: At their worst the symptoms were moderate, in the emergency department the symptoms are unchanged. Modifying factors: The symptoms are alleviated by nothing, the symptoms are aggravated by nothing. Associated signs and symptoms: Pertinent positives: fever, nausea, rhinorrhea. The patient has not experienced similar symptoms in the past. The patient has not recently seen a physician. Pt reports fever, cough, congestion, decreased appetite, nausea, body aches, shortness of breath for 5 days. States he got a positive COVID result yesterday and thought he should just come get checked out because he isn't getting any better yet. . Historical: - Allergies: 12:54 No Known Allergies; iw - Home Meds: 12:54 hydrochlorothiazide 25 mg Oral tab 1 tab 2 times per day [Active]; iw - PMHx: 12:54 Asthma; Hypertension; Diabetes - IDDM; iw - PSHx: 12:54 gangrene; iw - Immunization history:: Flu vaccine is not up to date. - Social history:: Smoking status: Patient/guardian denies using tobacco, the patient reports quitting approximately 5 years ago. ROS: 13:22 Cardiovascular: Negative for chest pain, palpitations, and edema, Abdomen/GI: Negative kb for abdominal pain, nausea, vomiting, diarrhea, and constipation, MS/Extremity: Negative for injury and deformity, Skin: Negative for injury, rash, and discoloration, Neuro: Negative for headache, weakness, numbness, tingling, and seizure. 13:22 Constitutional: Positive for body aches, chills, fatigue, fever, malaise, poor PO intake. 13:22 ENT: Positive for rhinorrhea. 13:22 Respiratory: Positive for cough, shortness of breath. Exam: 13:22 Constitutional: This is a well developed, well nourished patient who is awake, alert, kb and in no acute distress. Head/Face: Normocephalic, atraumatic. Chest/axilla: Normal chest wall appearance and motion. Cardiovascular: Regular rate and rhythm with a normal S1 and S2. No gallops, murmurs, or rubs. No pulse deficits. Respiratory: Lungs have equal breath sounds bilaterally, clear to auscultation. No rales, rhonchi or wheezes noted. No increased work of breathing, no retractions or nasal flaring. Abdomen/GI: Soft, non-tender, with normal bowel sounds. No distension. No guarding or rebound. No evidence of tenderness throughout. Skin: Warm, dry with normal turgor. Normal color with no rashes, no lesions, and no evidence of cellulitis. MS/ Extremity: Pulses equal, no cyanosis. Neurovascular intact. Full, normal range of motion. Neuro: Awake and alert, GCS 15, oriented to person, place, time, and situation. Cranial nerves II-XII grossly intact. Moves all extremities. Sensory grossly intact. Cerebellar exam normal. Normal gait. Vital Signs: 12:49 BP 159 / 110; Pulse 116; Resp 24 S; Temp 99.1; Pulse Ox 92% on R/A; Weight 156.49 kg; iw Height 5 ft. 10 in. (177.80 cm); 15:09 BP 151 / 103; Pulse 111; Resp 23; Pulse Ox 93% on R/A; rb3 15:45 BP 154 / 96; Pulse 115; Resp 22; Pulse Ox 93% on 2 lpm NC; rb3 17:00 BP 157 / 95; Pulse 111; Resp 22; Temp 99.0; Pulse Ox 94% on 2 lpm NC; rb3 18:00 BP 146 / 72; Pulse 104; Resp 21; Temp 99.1; Pulse Ox 94% on 2 lpm NC; rb3 12:49 Body Mass Index 49.50 (156.49 kg, 177.80 cm) iw 15:45 PT. O2 sat was 88-89% on RA when I went into the room, administered 2 L NC rb3 MDM: 13:04 Patient medically screened. kb 13:22 Data reviewed: vital signs, nurses notes. Data interpreted: Pulse oximetry: on room air kb is 92 %. Interpretation: borderline. 16:09 Counseling: I had a detailed discussion with the patient and/or guardian regarding: the kb historical points, exam findings, and any diagnostic results supporting the discharge/admit diagnosis, lab results, radiology results, the need for further work-up and treatment in the hospital. Physician consultation: Sergey Freeman DO was contacted at 16:09, regarding admission, to the medical/surgical unit. patient's condition, and will see patient in ED, shortly. ED course: oxygen decreased to 88% on room air at rest with increased work of breathing. . 01/23 13:05 Order name: Blood Culture Adult (2) kb 01/23 13:05 Order name: BMP; Complete Time: 14:46 kb 01/23 13:05 Order name: C-Reactive Protein; Complete Time: 14:46 kb 01/23 13:05 Order name: CBC with Diff; Complete Time: 14:46 kb 01/23 13:05 Order name: D-Dimer; Complete Time: 14:56 kb 01/23 13:05 Order name: Ferritin; Complete Time: 14:46 kb 01/23 13:05 Order name: Lactate; Complete Time: 14:46 kb 01/23 13:05 Order name: LFT's; Complete Time: 14:46 kb 01/23 13:05 Order name: Lipase; Complete Time: 14:46 kb 01/23 13:05 Order name: Procalcitonin; Complete Time: 15:06 kb 01/23 13:05 Order name: PT-INR; Complete Time: 14:56 kb 01/23 13:05 Order name: Ptt, Activated; Complete Time: 14:56 kb 01/23 13:05 Order name: Troponin (emerg Dept Use Only); Complete Time: 14:46 kb 01/23 13:05 Order name: CXR XRAY; Complete Time: 14:34 kb 01/23 13:05 Order name: EKG; Complete Time: 13:07 kb 01/23 13:05 Order name: Cardiac monitoring; Complete Time: 14:07 kb 01/23 13:05 Order name: Droplet/Contact Precautions; Complete Time: 13:38 kb 03/06 13:05 Order name: EKG - Nurse/Tech; Complete Time: 14:07 kb 01/23 13:05 Order name: IV Start; Complete Time: 14:07 kb 01/23 13:05 Order name: Labs collected and sent; Complete Time: 14:07 kb 01/23 13:05 Order name: O2 Per Protocol; Complete Time: 13:38 kb 01/23 13:05 Order name: O2 Sat Monitoring; Complete Time: 13:38 kb 01/23 14:56 Order name: CT Chest For PE Angio; Complete Time: 15:30 kb Administered Medications: 14:07 Drug: Zofran (Ondansetron) 4 mg Route: IVP; Site: left antecubital; rb3 14:25 Follow up: Response: No adverse reaction; Nausea is decreased rb3 14:07 Drug: NS 0.9% 1000 ml Route: IV; Rate: 1000 ml; Site: left antecubital; rb3 15:11 Follow up: IV Status: Completed infusion rb3 16:24 Drug: SOLU-Medrol 125 mg Route: IVP; Site: left antecubital; rb3 16:40 Follow up: Response: No adverse reaction rb3 Disposition: 01/24 09:07 Co-signature as Attending Physician, Pako Anton MD I agree with the assessment and yolanda plan of care. Disposition: 01/23/21 16:11 Hospitalization ordered by Sergey Freeman for Observation. Preliminary diagnosis are Coronavirus infection, unspecified, Viral pneumonia, unspecified, Hypoxia. - Bed requested for Telemetry/MedSurg (observation). - Status is Observation. ll2 - Condition is Fair. - Problem is new. - Symptoms are unchanged. Signatures: Dispatcher [employer] Holly Alvarez, [employer]-C [employer]BER-Pako Nassar MD MD cha Williams, Irene, RN Patricia Reilly Lacie RN RN ll2 Dorina Marie, RN RN rb3 Corrections: (The following items were deleted from the chart) 01/23 16:31 15:31 Misc. Order ordered. kb rb3 17:28 16:11 Hospitalization Ordered by Sergey Freeman DO for Observation. Preliminary eb diagnosis is Coronavirus infection, unspecified; Viral pneumonia, unspecified; Hypoxia. Bed requested for Telemetry/MedSurg (observation). Status is Observation. Condition is Fair. Problem is new. Symptoms are unchanged. kb 19:30 17:28 01/23/2021 16:11 Hospitalization Ordered by Sergey Freeman DO for Observation. ll2 Preliminary diagnosis is Coronavirus infection, unspecified; Viral pneumonia, unspecified; Hypoxia. Bed requested for Telemetry/MedSurg (observation). Status is Observation. Condition is Fair. Problem is new. Symptoms are unchanged. eb
--- NOTE | 2021-01-23 16:12 | ER ---
Nurse's Notes [facility] [place] Name: Wilder Blair Age: 35 yrs Sex: Male : 1985 Arrival Date: 01/23/2021 Time: 12:37 Bed 18 Private MD: Kike Adkins Diagnosis: Coronavirus infection, unspecified;Viral pneumonia, unspecified;Hypoxia Presentation: 01/23 12:49 Chief complaint: Patient states: was swabbed for COVID on , test came back iw positive today, symptoms started 5 days ago, pt is having increasing fatigue, cough, and increased SOB , is having chest tightness. Coronavirus screen: Client reports previous positive COVID test result. Date of collection: January 21, 2021. Ebola Screen: Patient negative for fever greater than or equal to 101.5 degrees Fahrenheit, and additional compatible Ebola Virus Disease symptoms Patient denies exposure to infectious person. Patient denies travel to an Ebola-affected area in the 21 days before illness onset. No symptoms or risks identified at this time. Initial Sepsis Screen: Does the patient meet any 2 criteria? HR > 90 bpm. Does the patient have a suspected source of infection?. Risk Assessment: Do you want to hurt yourself or someone else? Patient reports no desire to harm self or others. Onset of symptoms was January 18, 2021. 12:49 Method Of Arrival: Ambulatory iw 12:49 Acuity: CALEB 3 iw Triage Assessment: 13:05 Respiratory: Onset: The symptoms/episode began/occurred x 5 days, the patient has mild rb3 shortness of breath. Historical: - Allergies: 12:54 No Known Allergies; iw - Home Meds: 12:54 hydrochlorothiazide 25 mg Oral tab 1 tab 2 times per day [Active]; iw - PMHx: 12:54 Asthma; Hypertension; Diabetes - IDDM; iw - PSHx: 12:54 gangrene; iw - Immunization history:: Flu vaccine is not up to date. - Social history:: Smoking status: Patient/guardian denies using tobacco, the patient reports quitting approximately 5 years ago. Screenin:05 Abuse screen: Denies threats or abuse. Nutritional screening: No deficits noted. rb3 Tuberculosis screening: No symptoms or risk factors identified. Fall Risk None identified. Assessment: 13:05 General: Appears uncomfortable, Behavior is calm, cooperative, Reports fever for rb3 feeling ill for fatigue for. Neuro: Level of Consciousness is awake, alert, obeys commands, Oriented to person, place, time, situation. Cardiovascular: Patient's skin is warm and dry. Cardiovascular: Reports chest tightness. Respiratory: Reports shortness of breath cough that is Airway is patent Respiratory effort is even, unlabored, Respiratory pattern is regular, symmetrical. GI: Reports nausea. : No signs and/or symptoms were reported regarding the genitourinary system. 13:05 Pain: Complains of pain in chest tightness. rb3 14:00 Reassessment: Patient appears in no apparent distress at this time. No changes from rb3 previously documented assessment. 15:00 Reassessment: Patient appears in no apparent distress at this time. Patient and/or rb3 family updated on plan of care and expected duration. Pain level reassessed. Patient is alert, oriented x 3, equal unlabored respirations, skin warm/dry/pink. Pt. continues to cough. 15:09 Reassessment: Pt. went to CT. rb3 15:52 Reassessment: Provider notified of O2 88-89% RA and that I did not ambulate the pt. due rb3 to low O2 sats. 16:00 Reassessment: Patient appears in no apparent distress at this time. Patient and/or rb3 family updated on plan of care and expected duration. Pain level reassessed. Patient is alert, oriented x 3, equal unlabored respirations, skin warm/dry/pink. Educated the pt. on keeping his face mask on while in his room. 17:00 Reassessment: Patient appears in no apparent distress at this time. No changes from rb3 previously documented assessment. 18:00 Reassessment: Patient appears in no apparent distress at this time. Patient and/or rb3 family updated on plan of care and expected duration. Pain level reassessed. Patient is alert, oriented x 3, equal unlabored respirations, skin warm/dry/pink. 18:10 Reassessment: Gave report to JANNETH Neal. Information from the SBAR was given. All rb3 questions asked and answered. Vital Signs: 12:49 BP 159 / 110; Pulse 116; Resp 24 S; Temp 99.1; Pulse Ox 92% on R/A; Weight 156.49 kg; iw Height 5 ft. 10 in. (177.80 cm); 15:09 BP 151 / 103; Pulse 111; Resp 23; Pulse Ox 93% on R/A; rb3 15:45 BP 154 / 96; Pulse 115; Resp 22; Pulse Ox 93% on 2 lpm NC; rb3 17:00 BP 157 / 95; Pulse 111; Resp 22; Temp 99.0; Pulse Ox 94% on 2 lpm NC; rb3 18:00 BP 146 / 72; Pulse 104; Resp 21; Temp 99.1; Pulse Ox 94% on 2 lpm NC; rb3 12:49 Body Mass Index 49.50 (156.49 kg, 177.80 cm) iw 15:45 PT. O2 sat was 88-89% on RA when I went into the room, administered 2 L NC rb3 ED Course: 12:37 Patient arrived in ED. am2 12:38 Kike Adkins DO is Private Physician. am2 12:52 Triage completed. iw 12:54 Arm band placed on. iw 13:02 Dorina Marie, RN is Primary Nurse. rb3 13:04 Holly Jimenez FNP-C is PHCP. kb 13:04 Pako Anton MD is Attending Physician. kb 13:05 Patient has correct armband on for positive identification. Bed in low position. Call rb3 light in reach. Side rails up X 1. youth nutritional monitor on. Pulse ox on. NIBP on. 13:28 Missed attempt(s): 20 gauge in right antecubital area. Bleeding controlled, band aid rb3 applied, catheter tip intact. 13:52 CXR XRAY In Process Unspecified. EDMS 14:06 Inserted saline lock: 20 gauge in left antecubital area, using aseptic technique. Blood dh4 collected. 15:19 CT Chest For PE Angio In Process Unspecified. EDMS 16:11 Sergey Freeman DO is Hospitalizing Provider. kb 19:29 No provider procedures requiring assistance completed. Patient admitted, IV remains in ll2 place. Administered Medications: 14:07 Drug: Zofran (Ondansetron) 4 mg Route: IVP; Site: left antecubital; rb3 14:25 Follow up: Response: No adverse reaction; Nausea is decreased rb3 14:07 Drug: NS 0.9% 1000 ml Route: IV; Rate: 1000 ml; Site: left antecubital; rb3 15:11 Follow up: IV Status: Completed infusion rb3 16:24 Drug: SOLU-Medrol 125 mg Route: IVP; Site: left antecubital; rb3 16:40 Follow up: Response: No adverse reaction rb3 Outcome: 16:11 Decision to Hospitalize by Provider. kb 19:29 Admitted to Tele accompanied by tech, via wheelchair, with oxygen. ll2 19:29 Condition: stable 19:29 Instructed on the need for admit. 19:30 Patient left the ED. ll2 Signatures: Dispatcher [employer] EDMS Holly Jimenez, KAMILLE-[place] SIMENTAL-Genie Mcfarlane, RN RN Sruthi Benavidez Donald [facility] Rocio Álvarez RN RN ll2 Dorina Marie, RN RN rb3 Corrections: (The following items were deleted from the chart) 12:54 12:49 BP 159 / 110; Pulse 116bpm; Resp 24bpm; Spontaneous; Pulse Ox 95% RA; Temp 99.1F; iw 156.49 kg; Height 5 ft. 10 in.; BMI: 49.5; iw
[2021-01-23] MEDS ORDERED: METHYLPREDNISOLONE 125 MG INJ ONE (16:38)
--- NOTE | 2021-01-23 17:21 | P.HP ---
Certification for Inpatient Patient admitted to: Inpatient With expected LOS: >2 Midnights Patient will require the following post-hospital care: None Practitioner: I am a practitioner with admitting privileges, knowledge of patient current condition, hospital course, and medical plan of care. Services: Services provided to patient in accordance with Admission requirements found in Title 42 Section 412.3 of the Code of Federal Regulations Patient History Date of Service: 01/23/21 Primary Care Provider: Dr. Adkins Reason for admission: Shortness of breath, COVID positive History of Present Illness: 35-year-old male with history of hypertension, diabetes mellitus type 2 insulin dependent. Patient reports that he was having increasing cough, congestion and fever over the past several days. He did go and got testing for COVID at [facility] on . He found out the following day that he was positive. Over the past day he has been having increasing shortness of breath. Symptoms have worsened. He came to the ER for further evaluation. In the ER patient was evaluated. Patient was found to be hypoxic. Patient required 2 L per nasal cannula. Blood pressure elevated. Heart rate also elevated around 120. Patient appeared dehydrated and received IV fluid. In the ER. White count 6.0, hemoglobin 15.7. Platelet count 149. Sodium 129, potassium 3.8. BUN of 8, creatinine 1.0 with a GFR of 86. Glucose 280. Lactic acid normal. Troponin negative. D-dimer elevated at 788. Ferritin elevated at 967. CRP elevated at 46. Pro calcitonin 0.08. CT angiogram shows no pulmonary embolism. Moderate to severe COVID changes noted. Patient was given IV Solu- Medrol in the emergency room. Patient admitted for further evaluation and treatment. When I saw the patient ER, patient did not appear septic. Patient date appears slightly dehydrated. Patient further reports that he was recently hospitalized in October infection to the groin. He described Karissa gangrene as the patient required surgical intervention and antibiotics at [facility]. The area has healed up. He still has sutures in place. He has not been able to follow up with surgeon to remove. Patient has been taking Lantus 30 units and hydrochlorothiazide 25 mg for his diabetes and hypertension. Allergies No Known Allergies Allergy (Unverified 01/03/12 18:02) Home medications list reviewed: Yes Home Medications: Pantoprazole [Protonix Tab*] 40 mg PO BID #60 tab 04/05/13 - Past Medical/Surgical History Diabetic: Yes -: Diabetes mellitus type 2 insulin-dependent -: Hypertension -: Obesity -: Suspect obstructive sleep apnea -: History of karissa gangrene -: Surgical debridement of Karissa gangrene, Oct 2020 Psychosocial/ Personal History: Patient is single. 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 - Family History Mother -: Hypertension - Social History Smoking Status: Never smoker Alcohol use: Yes CD- Drugs: Yes Caffeine use: Yes Place of Residence: Home Review of Systems General: Fever, Chills, Weakness, Malaise, As per HPI Eyes: Unremarkable ENT: Nose Congestion, As per HPI Respiratory: Cough, Shortness of Breath, SOB with Excertion, As per HPI Cardiovascular: Unremarkable Gastrointestinal: Unremarkable Genitourinary: Unremarkable Musculoskeletal: Unremarkable Integumentary: Unremarkable Neurological: Unremarkable Lymphatics: Unremarkable Physical Examination - Physical Exam General: Alert, In no apparent distress, Oriented x3, Cooperative HEENT: Atraumatic, Normocephalic, Other (Dry mucous membranes noted) Neck: Supple Respiratory: Crackles/rales (Bilateral) Cardiovascular: Abnormal pulses (Sinus tachycardia rate around 120) Gastrointestinal: Normal bowel sounds, No tenderness, No masses, No rebound, No guarding Musculoskeletal: No erythema, No tenderness, No warmth Integumentary: No tenderness/swelling, No erythema, No warmth, No cyanosis Neurological: Normal speech, Normal strength at 5/5 x4 extr, Normal tone, Normal affect External genitalia: Other (No erythema to the perineum. [address] from prior surgery.) - Studies Laboratory Data (last 24 hrs) 01/23/21 14:02: PT 13.7 H, INR 1.19, APTT 30.2 01/23/21 14:02: WBC 6.00, Hgb 15.7, Hct 45.6, Plt Count 149 L 01/23/21 14:02: Sodium 129 L, Potassium 3.8, BUN 8, Creatinine 1.00, Glucose 280 H, Total Bilirubin 0.8, AST 88 H, ALT 132 H, Alkaline Phosphatase 98, Lipase 58 L Assessment and Plan - Plan Impression: Fever, dyspnea secondary to acute respiratory failure with hypoxia related to bilateral COVID 19 pneumonia Diabetes mellitus type 2 insulin-dependent with hyperglycemia Hypertension Hyponatremia likely from dehydration and medication Obesity, suspect obstructive sleep apnea History of Karissa gangrene Plan: Fever, dyspnea secondary to acute respiratory failure with hypoxia related to bilateral COVID 19 pneumonia: Patient will be admitted for further evaluation and treatment. Patient will continue with IV Solu-Medrol and vitamin supplementation. Discuss the possibility of initiating Remdesivir. Risk and benefit address in detail. Patient willing to get this medication. Will initiate Remdesivir. Pharmacy to monitor and adjust. Will monitor liver function test. Will also need to check if patient would want ivermectin. Nurses are to check. If so will start also ivermectin. D-dimer was also elevated. Therefore will start Eliquis 5 mg 1 pill twice daily for prevention of pulmonary embolism and blood clots. Patient given IV fluids in the emergency room. Will give up to 1 L. Encourage oral intake. Will provide medication for cough. Encourage proning, incentive spirometer, and ambulation. Respiratory to continue to wean off oxygen. Currently on 2 L. Will continue to monitor the patient closely. Anticipate improvement in the next 48-72 hr. Diabetes mellitus type 2 insulin-dependent with hyperglycemia: Will start Lantus. Will check A1c. Will monitor and adjust appropriately. Accu-Cheks in place. Will provide sliding scale. Hypertension: Patient previously on hydrochlorothiazide. Patient with hyponatremia suspect dehydration. Discontinue hydrochlorothiazide. IV fluids to be given. Will monitor this closely. If medication needed well initiate medication. Hyponatremia likely from dehydration and medication: Hydrochlorothiazide discontinued. Patient to be given 1 L of IV fluids. Recommend and encourage oral intake. Obesity, suspect obstructive sleep apnea: Will address BMI. Lifestyle modification will be addressed. Patient would benefit with CPAP at night. Outpatient workup for sleep apnea will be recommended. History of Karissa gangrene: Sutures still in place. No evidence of infection. It appears patient did not follow up with surgeon. Will have nurses remove sutures that still remain in the area. Discharge Plan: Home Plan to discharge in: 72 Hours - Advance Directives Does patient have a Living Will: No Does patient have a Durable POA for Healthcare: No - Code Status/Comfort Care Code Status Assessed: Yes (Patient is full code) Time Spent Managing Pts Care (In Minutes): 55
[2021-01-23] MEDS: ASCORBIC ACID 500 MG TABLET PO SCH ×2 (19:56→21:06)
[2021-01-23] MEDS ORDERED: D50W 25 GM/50 ML SYRINGE IV PRN (19:56)
[2021-01-23] MEDS ORDERED: ONDANSETRON 4 MG/2 ML VIAL IV PRN (19:56)
[2021-01-23] MEDS ORDERED: GLUCAGON 1 MG/VIAL IM PRN (19:56)
[2021-01-23] MEDS ORDERED: MELATONIN 5 MG TABLET PO SCH (21:00)
[2021-01-23] MEDS ORDERED: INSULIN GLARGINE 100 UNITS/ML SQ SCH (21:00)
[2021-01-23] MEDS: APIXABAN 5 MG TABLET PO SCH (21:01)
[2021-01-23] MEDS: INSULIN -REGULAR HUMAN 50 UNIT/0.5 ML ML SQ SCH (21:03)
[2021-01-23] MEDS: FAMOTIDINE 20 MG TAB PO SCH (21:04)
[2021-01-23] MEDS: THIAMINE HCL 100 MG TABLET PO SCH (21:05)
[2021-01-23] MEDS: METHYLPREDNISOLONE 125 MG INJ IV SCH (21:05)
[2021-01-23] MEDS: ACETAMINOPHEN 500 MG TAB PO PRN (21:07)
[2021-01-23 21:48] VITALS: O2SAT 92
[2021-01-23] MEDS: BENZONATATE 100 MG CAP PO PRN (22:08)
[2021-01-24 01:02] VITALS: BMI 49.1
[2021-01-24 05:03] LABS: Absolute Lymphocytes (CBC) 0.8 K/uL (0.7-4.9); Basophils % 0.6 % (0-1.3); Hematocrit 48.6 % (39.6-49.0); Lymphocytes % 22.5 % (15.3-44.8); MPV 10.5 fL (7.6-11.3); RBC Red Blood Cell Count 5.15 M/uL (4.33-5.43)
[2021-01-24 06:31] LABS: Albumin 3.2 g/dL (3.4-5.0); Bilirubin Total 0.8 mg/dL (0.2-1.0); Protein, Total 8.1 g/dL (6.4-8.2); Thyroid Stimulating Hormone 2.21 uIU/mL (0.360-3.740)
[2021-01-24 06:40] LABS: Magnesium 2.1 mg/dL (1.8-2.4); Potassium 4.2 mmol/L (3.5-5.1)
[2021-01-24] MEDS: ACETAMINOPHEN 500 MG TAB PO PRN (07:35)
[2021-01-24] MEDS: BENZONATATE 100 MG CAP PO PRN (07:36)
[2021-01-24] MEDS: ASCORBIC ACID 500 MG TABLET PO SCH ×2 (07:36→12:23)
[2021-01-24] MEDS: THIAMINE HCL 100 MG TABLET PO SCH (07:36)
[2021-01-24] MEDS: APIXABAN 5 MG TABLET PO SCH (07:37)
[2021-01-24] MEDS: INSULIN -REGULAR HUMAN 50 UNIT/0.5 ML ML SQ SCH ×4 (07:38→14:41)
[2021-01-24] MEDS: FAMOTIDINE 20 MG TAB PO SCH (07:38)
[2021-01-24] MEDS: METHYLPREDNISOLONE 125 MG INJ IV SCH (07:39)
[2021-01-24] MEDS ORDERED: D50W 25 GM/50 ML VIAL IV PRN (08:00)
[2021-01-24] MEDS ORDERED: INSULIN GLARGINE 100 UNITS/ML SQ SCH (09:00)
[2021-01-24] MEDS ORDERED: VITAMIN D 1000 UNIT TAB PO SCH (09:00)
[2021-01-24] MEDS ORDERED: ZINC SULFATE 220 MG CAP PO SCH (09:00)
[2021-01-24] MEDS ORDERED: Remdesivir 200 MG in NA CHLORIDE 0.9% 250 ML IV ONE (09:00)
[2021-01-24 09:50] LABS: Urine Appearance CLEAR; Urine Bilirubin NEGATIVE (NEG); Urine Blood NEGATIVE (NEG); Urine Color YELLOW; Urine Glucose 3+ (NEG); Urine Protein NEGATIVE (NEG); Urine Specific Gravity >=1.030 (1.005-1.030); Urine Urobilinogen 0.2 mg/dL (0.2-1.0)
[2021-01-24 09:51] LABS: Urine Microscopic Reflex NO UMIC
--- NOTE | 2021-01-24 12:33 | P.DS ---
Admission Date: 01/23/21 Discharge Date: 01/24/21 Primary Care Provider: Dr. Adkins Disposition: ROUTINE DISCHARGE Discharge Condition: GOOD Reason for Admission: Shortness of breath, COVID positive Consultations: Pulmonary-Dr. Quiros Procedures: COVID: Positive CT Scan: COMPARISON: Chest Single View dated 01/23/2021 TECHNIQUE: Dynamically enhanced 3 mm thick images of the chest were obtained during administration of approximately 150mL Isovue 370 IV contrast. Coronal and oblique MIP reconstruction images were generated and reviewed. Exam utilizes a protocol to evaluate the pulmonary arterial tree. All CT scans are performed using dose optimization technique as appropriate and may include automated exposure control or mA/KV adjustment according to patient size. FINDINGS: No pulmonary emboli are identified. The aorta as imaged shows no acute or suspicious finding. No pericardial thickening or effusion. Extensive airspace opacification is present throughout the lung hopkins sparing the lingula and somewhat sparing each posterior lung base. This is a commonly described pattern in COVID-19 pneumonia. Pattern is also described in influence pneumonia, organizing pneumonia drug toxicity in some autoimmune diseases. No pneumothorax or pleural effusion. No pleural based mass. No mediastinal or hilar suspicious masses. No chest wall masses or abnormal axillary lymphadenopathy. IMPRESSION: No pulmonary emboli identified. Moderate severity bilateral COVID-19 pneumonia. Medical Problem List: Fever, dyspnea secondary to acute respiratory failure with hypoxia related to bilateral COVID 19 pneumonia Diabetes mellitus type 2 insulin-dependent with hyperglycemia Hypertension Hyponatremia likely from dehydration and medication Obesity, suspect obstructive sleep apnea History of Rebeka gangrene Brief History of Present Illness: 35-year-old male with history of hypertension, diabetes mellitus type 2 insulin dependent. Patient reports that he was having increasing cough, congestion and fever over the past several days. He did go and got testing for COVID at [facility] on . He found out the following day that he was positive. Over the past day he has been having increasing shortness of breath. Symptoms have worsened. He came to the ER for further evaluation. In the ER patient was evaluated. Patient was found to be hypoxic. Patient required 2 L per nasal cannula. Blood pressure elevated. Heart rate also elevated around 120. Patient appeared dehydrated and received IV fluid. In the ER. White count 6.0, hemoglobin 15.7. Platelet count 149. Sodium 129, potassium 3.8. BUN of 8, creatinine 1.0 with a GFR of 86. Glucose 280. Lactic acid normal. Troponin negative. D-dimer elevated at 788. Ferritin elevated at 967. CRP elevated at 46. Pro calcitonin 0.08. CT angiogram shows no pulmonary embolism. Moderate to severe COVID changes noted. Patient was given IV Solu- Medrol in the emergency room. Patient admitted for further evaluation and treatment. When I saw the patient ER, patient did not appear septic. Patient date appears slightly dehydrated. Patient further reports that he was recently hospitalized in October infection to the groin. He described Rebeka gangrene as the patient required surgical intervention and antibiotics at [facility]. The area has healed up. He still has sutures in place. He has not been able to follow up with surgeon to remove. Patient has been taking Lantus 30 units and hydrochlorothiazide 25 mg for his diabetes and hypertension. Hospital Course: Patient presented with Fever, dyspnea secondary to acute respiratory failure with hypoxia related to bilateral COVID 19 pneumonia. Patient was admitted for treatment. Patient has done well Overnite. Patient without the need for home oxygen. Patient received IV steroids, Remdesivir and vitamin supplementation. At discharge patient without significant shortness of breath. Cough still present. D-dimer was elevated. CT scan did not show any pulmonary embolism. At discharge the patient will continue with prednisone 20 mg 1 pill twice daily for 7 days then 1 pill once daily for 7 days. The patient will be given a limited supply of Robitussin with codeine 5 mL 3 times a day as needed for cough. The patient will also continue with Eliquis 5 mg 1 pill twice daily due to risk of blood clots. At discharge patient will continue with vitamin supplementation including vitamin-C 500 mg 1 pill 3 times a day, vitamin D 2000 units daily, melatonin 5 mg daily, thiamine 100 mg 1 pill twice daily, and zinc 220 mg daily. Recommend for the patient to continue with proning, incentive spirometer, and ambulation. Patient will continue with CDC education for COVID 19 including isolation. Education on Eliquis also provided. Patient will need to remain isolated for at least 10 days. At discharge patient will continue with face mask use, hand washing and social distancing. Patient will follow up with pulmonology in 1 week to follow up this hospitalization and continue his care. Recommend follow up with his PCP in 1 week to further address and monitor. Patient with diabetes mellitus type 2 insulin-dependent with hyperglycemia. Hemoglobin A1c 9.0. Patient takes Lantus and NovoLog at home. At discharge patient will continue with Lantus 30 units subcu twice daily. Patient will continue with NovoLog as directed. Recommend to monitor blood sugar at least twice daily. Recommend to maintain blood sugars less than 140 fasting and less than 200 and [place]. If blood sugars remain above 200 consistently then he may increase Lantus by 1-2 units for better control. Recommend follow up with his PCP within 1 week to further monitor and address. Patient with history of hypertension. Patient previously on hydrochlorothiazide. Patient also had hyponatremia with dehydration likely related to medication. Hydrochlorothiazide has been discontinued. Blood pressure stable at this time. No need for medication at this time. Recommend to monitor blood pressure daily. Recommend to maintain blood pressure less than 130/80. If blood pressures remain above 140/90. He is to contact his PCP for further recommendation. Patient with obesity. Suspect obstructive sleep apnea. Recommend outpatient sleep study for further evaluation. This can be done with the help of pulmonology or his PCP. Patient with history of Rebeka gangrene. Patient did not follow-up with his surgeon. Sutures remained in place. He had surgery back in October. Sutures removed. No evidence of infection at this time. Vital Signs/Physical Exam: Temp Pulse Resp BP Pulse Ox 96.2 F L 82 18 136/88 92 01/24/21 12:00 01/24/21 12:00 01/24/21 12:00 01/24/21 12:00 01/24/21 12:00 General: Alert, In no apparent distress, Oriented x3, Cooperative HEENT: Atraumatic Neck: Supple Respiratory: Clear to auscultation bilaterally, Normal air movement Cardiovascular: Normal pulses, Regular rate/rhythm Gastrointestinal: Normal bowel sounds, Soft and benign, Non-distended, No tenderness, No masses, No rebound, No guarding Musculoskeletal: No erythema, No tenderness, No warmth Integumentary: No tenderness/swelling, No erythema, No warmth, No cyanosis Neurological: Normal speech, Normal strength at 5/5 x4 extr, Normal tone, Normal affect Laboratory Data at Discharge: WBC 3.70 K/uL (4.3-10.9) L D 01/24/21 04:25 Hgb 16.1 g/dL (13.6-17.9) 01/24/21 04:25 Hct 48.6 % (39.6-49.0) 01/24/21 04:25 Plt Count 135 K/uL (152-406) L 01/24/21 04:25 PT 13.7 SECONDS (9.5-12.5) H 01/23/21 14:02 INR 1.19 01/23/21 14:02 APTT 30.2 SECONDS (24.3-36.9) 01/23/21 14:02 Sodium 131 mmol/L (136-145) L 01/24/21 04:25 Potassium 4.2 mmol/L (3.5-5.1) 01/24/21 04:25 BUN 15 mg/dL (7-18) 01/24/21 04:25 Creatinine 1.03 mg/dL (0.55-1.3) 01/24/21 04:25 Glucose 413 mg/dL (74-106) H* 01/24/21 04:25 Magnesium 2.1 mg/dL (1.8-2.4) 01/24/21 04:25 Total Bilirubin 0.8 mg/dL (0.2-1.0) 01/24/21 04:25 AST 31 U/L (15-37) 01/24/21 04:25 ALT 113 U/L (12-78) H 01/24/21 04:25 Alkaline Phosphatase 92 U/L (45-117) 01/24/21 04:25 Lipase 58 U/L (73-393) L 01/23/21 14:02 Home Medications: Apixaban [Eliquis] 5 mg PO BID #15 tablet 01/24/21 Ascorbic Acid [Vitamin C*] 500 mg PO TID #90 tablet 01/24/21 Cholecalciferol (Vitamin D3) [Vitamin D 1000 Iu Tab*] 2,000 unit PO DAILY #60 tab 01/24/21 Guaifen W/Codeine Syrup [ROBITUSSIN A-C Syrup] 5 ml PO TID PRN #1 bottle 01/24/21 Insulin Aspart [Novolog] 12 units SQ TID 01/24/21 Insulin Glargine Human [Lantus*] 30 unit SQ BID #1 vial 01/24/21 Melatonin 5 mg PO BEDTIME #30 tablet 01/24/21 Thiamine HCl [Vitamin B-1*] 100 mg PO BID #60 tablet 01/24/21 Zinc Sulfate [Zinc Sulfate*] 220 mg PO DAILY #30 cap 01/24/21 predniSONE [Prednisone*] 20 mg PO SEECOM #21 tab 01/24/21 New Medications: Apixaban [Eliquis] 5 mg PO BID #15 tablet Insulin Glargine Human [Lantus*] 30 unit SQ BID #1 vial Melatonin 5 mg PO BEDTIME #30 tablet predniSONE [Prednisone*] 20 mg PO SEECOM #21 tab Guaifen W/Codeine Syrup [ROBITUSSIN A-C Syrup] 5 ml PO TID PRN #1 bottle PRN Reason: Cough Thiamine HCl [Vitamin B-1*] 100 mg PO BID #60 tablet Ascorbic Acid [Vitamin C*] 500 mg PO TID #90 tablet Cholecalciferol (Vitamin D3) [Vitamin D 1000 Iu Tab*] 2,000 unit PO DAILY #60 tab Zinc Sulfate [Zinc Sulfate*] 220 mg PO DAILY #30 cap Physician Discharge Instructions: Patient presented with Fever, dyspnea secondary to acute respiratory failure with hypoxia related to bilateral COVID 19 pneumonia. Patient was admitted for treatment. Patient has done well Overnite. Patient without the need for home oxygen. Patient received IV steroids, Remdesivir and vitamin supplementation. At discharge patient without significant shortness of breath. Cough still present. D-dimer was elevated. CT scan did not show any pulmonary embolism. At discharge the patient will continue with prednisone 20 mg 1 pill twice daily for 7 days then 1 pill once daily for 7 days. The patient will be given a limited supply of Robitussin with codeine 5 mL 3 times a day as needed for cou gh. The patient will also continue with Eliquis 5 mg 1 pill twice daily due to risk of blood clots. At discharge patient will continue with vitamin supplementation including vitamin-C 500 mg 1 pill 3 times a day, vitamin D 2000 units daily, melatonin 5 mg daily, thiamine 100 mg 1 pill twice daily, and zinc 220 mg daily. Recommend for the patient to continue with proning, incentive spirometer, and ambulation. Patient will continue with CDC education for COVID 19 including isolation. Education on Eliquis also provided. Patient will need to remain isolated for at least 10 days. At discharge patient will continue with face mask use, hand washing and social distancing. Patient will follow up with pulmonology in 1 week to follow up this hospitalization and continue his care. Recommend follow up with his PCP in 1 week to further address and monitor. Patient with diabetes mellitus type 2 insulin-dependent with hyperglycemia. Hemoglobin A1c 9.0. Patient takes Lantus and NovoLog at home. At discharge patient will continue with Lantus 30 units subcu twice daily. Patient will continue with NovoLog as directed. Recommend to monitor blood sugar at least twice daily. Recommend to maintain blood sugars less than 140 fasting and less than 200 and [place]. If blood sugars remain above 200 consistently then he may increase Lantus by 1-2 units for better control. Recommend follow up with his PCP within 1 week to further monitor and address. Patient with history of hypertension. Patient previously on hydrochlorothiazide. Patient also had hyponatremia with dehydration likely related to medication. Hydrochlorothiazide has been discontinued. Blood pressure stable at this time. No need for medication at this time. Recommend to monitor blood pressure daily. Recommend to maintain blood pressure less than 130/80. If blood pressures remain above 140/90. He is to contact his PCP for further recommendation. Patient with obesity. Suspect obstructive sleep apnea. Recommend outpatient sleep study for further evaluation. This can be done with the help of pulmonology or his PCP. Patient with history of Rebeka gangrene. Patient did not follow-up with his surgeon. Sutures remained in place. He had surgery back in October. Sutures removed. No evidence of infection at this time. Diet: ADA Activity: Ad jennifer Followup: Kike Adkins DO [Primary Care Provider] - Time spent managing pt's care (in minutes): 55
[2021-01-24 16:07] VITALS: BP 131/74; TEMP 97.4
[2021-01-24] MEDS ORDERED: predniSONE 20 MG TAB PO SCH (21:00)
[2021-01-25] MEDS ORDERED: Remdesivir 100 MG in NA CHLORIDE 0.9% 250 ML IV SCH (09:00)
== END 2021-01-24 15:45 | disposition home or self-care (01) ==
LOC: ER 12:35 → INTOOBSV 16:42 → ERHOLD 16:42 → 4TH 18:56
PROVIDERS: ADMIT Family Medicine; ATTEND Family Medicine
DX: U07.1 COVID-19 (principal); J12.82 Pneumonia due to coronavirus disease 2019; R94.31 Abnormal electrocardiogram [ECG] [EKG]; E11.65 Type 2 diabetes mellitus with hyperglycemia; I10 Essential (primary) hypertension; E87.1 Hypo-osmolality and hyponatremia; E66.9 Obesity, unspecified; Z79.4 Long term (current) use of insulin; J96.01 Acute respiratory failure with hypoxia; Z68.42 Body mass index [BMI] 45.0-49.9, adult; J45.909 Unspecified asthma, uncomplicated
CPT/HCPCS: 96361; 93005; 87040 ×2; 85025 ×2; 80048; 36415; 83735; 82947 ×7; 85610; 85379; 80076; 83605; 85730; 84443; 81003; 83036; 84484; 84439; 82728; 83690; 80053; 84145; 86140; 71275; 71045; 94010; 96375; 96374; 99285; Q9967; J1815 ×2; J7050; J7030; J2930 ×3; J2405; G0378 ×3

== ENCOUNTER 2022-10-07 11:58 | Emergency (ER) | payer BC, OTHER ==
--- OUTSIDE RECORDS SUMMARY | 2022-10-07 12:06 | XMS REPORT | Continuity of Care Document ---
:1985 Author Organization [facility] t Address [address] [place] [address] Care Team Providers Name Role Phone Kike Adkins Attending Clinician Unavailable MYKEL GARCIA Attending Clinician Unavailable MYKEL GARCIA Admitting Clinician Unavailable JAMES CHAUHAN Admitting Clinician Unavailable Payers Payer Name Policy Type Policy Number Effective Date Expiration Date [facility] [id number] 2020 CHOICE EXCHANGE 00:00:00 [facility] [id number] 2020 Common HEALTHCARE 00:00:00 [facility] [id number] [place] [id number] 2020 Common Choice Market 00:00:00 [place] [id number] 2020 Common Choice Market 00:00:00 [facility] Problems Condition Condition Condition Status Onset Resolution Last Treating Co mments Source Name Details Category Date Date Treatment Clinician Date Scrotal Scrotal Disease Active 2019-[address] [facility] [address] abscess abscess 12-27 [facility] 00:00: Medical 00 [place] [id number] Repetitive Problem Active Co mmon intrusions Spirit of sleep [facility] [id number] Daytime Problem Active Comm on 00 somnolence [facility] [id number] Constipati Problem Active Com mon on, Spirit unspecifie - [facility] d constipati [facility] [id number] Mixed Problem Active Common hyperlipid Spirit emia - [facility] [id number] Body mass Problem Active Com mon index Spirit [BMI] - [facility] 50.0-59.9, [facility] [id number] Hypertensi Problem Active Com mon on, Spirit essential - [facility] [id number] skilled nursing Problem Active Com mon (current) Spirit use of - [facility] insulin [facility] [id number] Morbid Problem Active Commo n 9104 (severe) Spirit obesity - [facility] due to [facility] [id number] Type 2 Problem Active Common diabetes Spirit mellitus - [facility] with other [facility] complicati Medica [facility] Diabetes Diabetes Disease Active [facility]I S t mellitus mellitus [facility] Hypertensi Hypertensi Disease Active C HI [facility] on [facility] Allergies, Adverse Reactions, Alerts Allergy Allergy Status Severity Reaction(s) Onset Inactive Treating Comm ents Source Name Type Date Date Clinician NO KNOWN Allergy Active [facility] Social History Social Habit Start Date Stop Date Quantity Comments Source History of Tobacco Common Spirit - Use [facility] Tobacco use and 2020-10-26 2020-10-26 Never used [facility] exposure 00:00:00 00:00:00 [facility] Sex Assigned At [birth year] [facility] 00:00:00 00:00:00 [facility] Smoking Status Start Date Stop Date Source Former Smoker 2021-02-01 00:00:00 2021-02-01 00:00:00 Common S pirit - [facility] Never smoker [facility] Medications Ordered Filled Start Stop Current Ordering Indication Dosage Frequency Signature Comments Components Source Medication Medication Date Date Medication? Clinician (SIG) Name Name HumaLOG 100 HumaLOG 100 2020- No TID HumaLOG UNIT/ML UNIT/ML 7-16 100 00:00: UNIT/ML 00 Lantus 100 Lantus 100 0 No QD Lantus 100 UNIT/ML UNIT/ML 7-16 UNIT/ML 00:00: 00 insulin 2020-0 Yes INJECT 12 [facility] t lispro 7-15 UNITS [facility] (HumaLOG) 00:00: SUBCUTANEO Me dical 100 unit/mL 00 USLY THREE Ce nter injection TIMES DAILY BEFORE MEAL(S) lisinopriL 2019-11 Yes 20mg QD Take [address] (PRINIVIL,Z 2-18 by mouth [facility] ESTRIL) 20 14:01: daily. Medic al MG tablet 29 Center metFORMIN 2019-11 Yes 500mg Take [address] (GLUCOPHAGE 2-18 mg [facility] ) 500 MG 14:01: mouth 2 Medica l tablet 29 (two) Center times daily with breakfast and dinner. potassium 2019-11 Yes 40meq QD Take 2 [facility] t chloride SA 2-18 tablets [facility] (K-DUR,KLOR 00:00: (40 mEq Med ical -CON) 20 00 total) by Center MEQ tablet mouth daily. HYDROcodone HYDROcodone No 1{table HYDROcodon -Acetaminop -Acetaminop t_as_ne e-Acetamin hen 10-325 hen 10-325 eded} ophen MG MG 10-325 MG NIFEdipine NIFEdipine No 1{table QD NIFEdipine ER 60 MG ER 60 MG t_on_an ER 60 MG _empty_ stomach } Multi Multi No Multi Vitamin Vitamin Vitamin Mens Mens Mens Metronidazo Metronidazo No 1{table QD Metronidaz le 500 MG le 500 MG t} ole 500 MG Insulin Insulin No QD Insulin Glargine Glargine Glargine 100 UNIT/ML 100 UNIT/ML 100 UNIT/ML Amoxicillin Amoxicillin No Amoxicilli n Docusate Docusate No 1{table QD Docusate Sodium 100 Sodium 100 t_as_ne Sodium 100 MG MG eded} MG Multi Multi No Multi Vitamin Vitamin Vitamin Mens Mens Mens Hydrocodone Hydrocodone No 1{table Hydrocodon -Acetaminop -Acetaminop t_as_ne e-Acetamin hen 10-325 hen 10-325 eded} ophen MG MG 10-325 MG NIFEdipine NIFEdipine No 1{table QD NIFEdipine ER 60 MG ER 60 MG t_on_an ER 60 MG _empty_ stomach } Insulin Insulin No TID Insulin Lispro 200 Lispro 200 Lispro 200 UNIT/ML UNIT/ML UNIT/ML Hydrochloro Hydrochloro No 1{table QD Hydrochlor thiazide 25 thiazide 25 t_in_th othiazide MG MG e_morni 25 MG ng} Metronidazo Metronidazo No 1{table QD Metronidaz le 500 MG le 500 MG t} ole 500 MG Insulin Insulin No QD Insulin Glargine Glargine Glargine 100 UNIT/ML 100 UNIT/ML 100 UNIT/ML Amoxicillin Amoxicillin No Amoxicilli n Docusate Docusate No 1{table QD Docusate Sodium 100 Sodium 100 t_as_ne Sodium 100 MG MG eded} MG Multi Multi No Multi Vitamin Vitamin Vitamin Mens Mens Mens Hydrocodone Hydrocodone No 1{table Hydrocodon -Acetaminop -Acetaminop t_as_ne e-Acetamin hen 10-325 hen 10-325 eded} ophen MG MG 10-325 MG NIFEdipine NIFEdipine No 1{table QD NIFEdipine ER 60 MG ER 60 MG t_on_an ER 60 MG _empty_ stomach } Insulin Insulin No TID Insulin Lispro 200 Lispro 200 Lispro 200 UNIT/ML UNIT/ML UNIT/ML Hydrochloro Hydrochloro No 1{table QD Hydrochlor thiazide 25 thiazide 25 t_in_th othiazide MG MG e_morni 25 MG ng} Metronidazo Metronidazo No 1{table QD Metronidaz le 500 MG le 500 MG t} ole 500 MG Hydrochloro Hydrochloro No 1{table QD Hydrochlor thiazide 25 thiazide 25 t_in_th othiazide MG MG e_morni 25 MG ng} Insulin Insulin No QD Insulin Glargine Glargine Glargine 100 UNIT/ML 100 UNIT/ML 100 UNIT/ML Multi Multi No Multi Vitamin Vitamin Vitamin Mens Mens Mens Amoxicillin Amoxicillin No Amoxicilli n Hydrocodone Hydrocodone No 1{table Hydrocodon -Acetaminop -Acetaminop t_as_ne e-Acetamin hen 10-325 hen 10-325 eded} ophen MG MG 10-325 MG NIFEdipine NIFEdipine No 1{table QD NIFEdipine ER 60 MG ER 60 MG t_on_an ER 60 MG _empty_ stomach } Insulin Insulin No TID Insulin Lispro 200 Lispro 200 Lispro 200 UNIT/ML UNIT/ML UNIT/ML Docusate Docusate No 1{table QD Docusate Sodium 100 Sodium 100 t_as_ne Sodium 100 MG MG eded} MG metroNIDAZO metroNIDAZO No 1{table QD metroNIDAZ LE 500 MG LE 500 MG t} OLE 500 MG hydroCHLORO hydroCHLORO No 1{table QD hydroCHLOR thiazide 25 thiazide 25 t_in_th Othiazide MG MG e_morni 25 MG ng} Amoxicillin Amoxicillin No Amoxicilli n Docusate Docusate No 1{table QD Docusate Sodium 100 Sodium 100 t_as_ne Sodium 100 MG MG eded} MG Vital Signs Vital Name Observation Time Observation Value Comments Source HEIGHT 2020-10-26 10:23:00 177.8 cm WEIGHT 2020-10-26 10:23:00 169.9 kg WEIGHT 2020-10-26 05:14:00 169.917 kg HEIGHT 2020-10-26 04:00:00 177.8 cm height 2021-02-03 13:40:00 70 [in_i] [facility] weight 2021-02-03 13:40:00 337 [lb_av] [facility] temperature 2021-02-03 13:40:00 97 [degF] [facility] bmi 2021-02-03 13:40:00 48.35 kg/m2 [facility] blood pressure 2021-02-03 13:40:00 116 mm[Hg] [facility] - systolic [facility] blood pressure 2021-02-03 13:40:00 70 mm[Hg] Common [facility] - diastolic [facility] height 2020-11-11 15:30:00 70 [in_i] [facility] weight 2020-11-11 15:30:00 356.7 [lb_av] [facility] temperature 2020-11-11 15:30:00 97.3 [degF] [facility] bmi 2020-11-11 15:30:00 51.18 kg/m2 [facility] oximetry 2020-11-11 15:30:00 93 % [facility] respiratory rate 2020-11-11 15:30:00 19 /min Comm on [facility] blood pressure 2020-11-11 15:30:00 136 mm[Hg] Common [facility] - systolic [facility] blood pressure 2020-11-11 15:30:00 85 mm[Hg] Common Spirit - diastolic [facility] St kes [facility] HEIGHT 2020-10-26 10:23:00 177.8 cm WEIGHT 2020-10-26 10:23:00 169.9 kg WEIGHT 2020-10-26 05:14:00 169.917 kg HEIGHT 2020-10-26 04:00:00 177.8 cm Procedures This patient has no known procedures. Plan of Care Planned Activity Planned Date Details Comments Source Future Scheduled 2022-07-21 INFLUENZA VACCINE (#1) [facility] 00:00:00 [code = INFLUENZA Medical Ce nter VACCINE (#1)] Future Scheduled 2021-11-[address] [facility] Test 00:00:00 (12+) [code = Medical Center DEPRESSION SCREENING (12+)] Future Scheduled 2021-01-[address] [facility] Test 00:00:00 measurement Medical Center (procedure) [code = 38783271] Future Scheduled [address] Test 00:00:00 (procedure) [code = Medical Center 31281282] Future Scheduled 2006 DTAP/TDAP/TD VACCINES [facility] 00:00:00 (1 - Tdap) [code = Medical C enter DTAP/TDAP/TD VACCINES (1 - Tdap)] Future Scheduled 2005 HEPATITIS C SCREENING [facility] Test 00:00:00 [code = HEPATITIS C Medical Center SCREENING] Future Scheduled 1997 DIABETIC EYE EXAM [facility] Test 00:00:00 [code = DIABETIC EYE Medical Center EXAM] Future Scheduled [address] [facility] Test 00:00:00 examination Medical Center (regime/therapy) [code = 735938809] Future Scheduled 1997 Urine screening for [facility] Test 00:00:00 protein (procedure) Medical Center [code = 659886146] Future Scheduled [address] [facility] Test 00:00:00 0-64 YRS (1 - PCV) Medical C enter [code = PNEUMOCOCCAL VACCINE 0-64 YRS (1 - PCV)] Future Scheduled 1988-05-19 COVID-19 VACCINE (#1) [facility] Test 00:00:00 [code = COVID-[address] VACCINE (#1)] Encounters Start End Encounter Admission Attending Care Care Encounter Source Date/Time Date/Time Type Type Clinicians Facility Department ID 2021-12-15 Outpatient Adkins, STLMLC STLMLC [id number] Common 13:47:45 Kike [id number] [facility] 2021-12-15 Outpatient Adkins, STLMLC STLMLC [id number] Common 13:38:21 Kike [id number] [facility] 2021-12-15 Outpatient Adkins, STLMLC STLMLC [id number] Common 13:27:08 Kike [id number] [facility] 2021-12-15 Outpatient Adkins, STLMLC STLMLC [id number] Common 13:18:58 Kike [id number] [facility] 2021-12-15 Outpatient Adkins, STLMLC STLMLC [id number] Common 12:29:32 Kike [id number] [facility] 2021-12-15 Outpatient Adkins, STLMLC STLMLC [id number] Common 12:28:41 Kike [id number] [facility] 2021-12-15 Outpatient Adkins, STLMLC STLMLC [id number] Common 12:27:21 Kike [id number] [facility] 2021-12-15 Outpatient Adkins, STLMLC STLC [id number] Common 12:26:46 Kike [id number] [facility] 2021-12-15 Outpatient Adkins, STLMLC STLMLC [id number] Common 12:16:03 Kike [id number] [facility] 2020-10-26 Inpatient ER JOSE, [facility] General Med [id number] [facility] 04:24:00 MYKEL 2021-06-02 2021-06-02 (TEL) STLMLC STLMLC [id number] Co mmon 00:00:00 00:00:00 [facility] 2021-02-03 2021-02-03 OFFICE STLC STLC [id number] Co mmon 00:00:00 00:00:00 VISIT [facility] 4 [facility] 2020-11-17 2020-11-17 (TEL) STLMLC STLMLC [id number] Co mmon 00:00:00 00:00:00 Spirit - [facility] 2020-11-11 2020-11-11 [facility] [id number] Co mmon 00:00:00 00:00:00 VISIT NEW Spir it PT LEVEL 4 - [facility] Results Test Description Test Time Test Comments Results Result Comments Source AFB CULTURE + SMEAR (NON-SPUTUM) 2020-12-08 07:22:00 Test Item Value Reference Range Interpretation Comme nts CULTURE (BEAKER) (test code = 1095) No acid-fast bacilli isolated i n 42 days AFB SMEAR (BEAKER) (test code = 994) No acid fast bacilli seen FUNGUS CULTURE + [id number] 23:55:00 Test Item Value Reference Range Interpretation Comments CULTURE (BEAKER) (test No fungus isolated in code = 1095) 28 days FUNGUS SMEAR (BEAKER) No fungi seen (test code = 1406) POCT-GLUCOSE [id number] 12:39:00 Test Item Value Reference Range Interpretation Comments POC-GLUCOSE METER 179 mg/dL 70-110 H : TESTED A T [facility] 6720 (BEAKER) (test code = [facility], 1538) 66488: [facility]/Techni funmi ID = [id number] for Richard Maguire POCT-GLUCOSE [id number] 07:59:00 Test Item Value Reference Range Interpretation Comments POC-GLUCOSE METER 129 mg/dL 70-110 H : TESTED A T [facility] 6720 (BEAKER) (test code = [facility], 1538) 09164: [facility]/Techni funmi ID = [id number] for Lorna restrepo Anita CBC W/PLT COUNT & AUTO [id number] 07:28:00 Test Item Value Reference Range Interpretation [...] 0-1 PERCENT (BEAKER) (test code = 2801) BASIC METABOLIC [id number] 07:00:00 Test Item Value Reference Range Interpretation [...] S NOT APPLICABLE FOR DIALYSIS PATIEN TS. [facility] ID - AMANDA [id number] 07:00:00 Test Item Value Reference Range Interpretation Comments MAGNESIUM (BEAKER) (test code = 1.7 mg/dL 1.6-2.6 627) [facility] ID - AMANDA [id number] 07:00:00 Test Item Value Reference Range Interpretation Comments PHOSPHORUS (BEAKER) (test code = 4.4 mg/dL 2.3-4.7 604) [facility] ID - AMANDA LPOCT-GLUCOSE [id number] 21:25:00 Test Item Value Reference Range Interpretation Comments POC-GLUCOSE METER 93 mg/dL 70-110 : TESTED A T [facility] 6720 (BEAKER) (test code = [facility], 153) 72260: [facility]/Techni funmi ID = [id number] for Anita Durham od POCT-GLUCOSE [id number] 16:46:00 Test Item Value Reference Range Interpretation Comments POC-GLUCOSE METER 152 mg/dL 70-110 H : TESTED A T [facility] 6720 (BEAKER) (test code = [facility], 1538) 92952: [facility]/Techni funmi ID = [id number] for Ellen Milner POCT-GLUCOSE [id number] 12:23:00 Test Item Value Reference Range Interpretation Comments POC-GLUCOSE METER 115 mg/dL 70-110 H : TESTED A T [facility] 6720 (BEAKER) (test code = [facility], 1538) 81163: [facility]/Techni funmi ID = [id number] for Ellen Milner POCT-GLUCOSE [id number] 08:13:00 Test Item Value Reference Range Interpretation Comments POC-GLUCOSE METER 127 mg/dL 70-110 H : TESTED A T [facility] 67[facility] (BEAKER) (test code = [facility] [place], 1538) 19731: [facility]/Techni funmi ID = [id number] for ISSA CHAPA BASIC METABOLIC [id number] 07:16:00 Test Item Value Reference Range Interpretation [...] S NOT APPLICABLE FOR DIALYSIS PATIEN TS. [facility] ID - NATASHA [id number] 07:16:00 Test Item Value Reference Range Interpretation Comments MAGNESIUM (BEAKER) (test code = 1.7 mg/dL 1.6-2.6 627) [facility] ID - NATASHA [id number] 07:16:00 Test Item Value Reference Range Interpretation Comments PHOSPHORUS (BEAKER) (test code = 3.6 mg/dL 2.3-4.7 604) [facility] ID - NATASHA MCALCIUM, [id number] 06:37:00 Test Item Value Reference Range Interpretation Comments CALCIUM IONIZED (BEAKER) (test 1.14 mmol/L 1.12-1.27 code = 698) PH, BLOOD (BEAKER) (test code = 7.38 1810) HEMOGLOBIN AND [id number] 06:20:00 Test Item Value Reference Range Interpretation Comments HEMOGLOBIN (BEAKER) (test code = 12.1 GM/DL 13.7-17.5 L 410) HEMATOCRIT (BEAKER) (test code = 37.7 % 40.1-51.0 L 411) [facility] ID - 6000POCT-GLUCOSE [id number] 21:00:00 Test Item Value Reference Range Interpretation Comments POC-GLUCOSE METER 133 mg/dL 70-110 H : TESTED A T [facility] 6720 (BEAKER) (test code = [facility], 1538) 87002: [facility]/Techni funmi ID = [id number] for Anita Liz POCT-GLUCOSE [id number] 17:56:00 Test Item Value Reference Range Interpretation Comments POC-GLUCOSE METER 150 mg/dL 70-110 H : TESTED A T [facility] 6720 (BEAKER) (test code = [facility], 1538) 87521: [facility]/Techni funmi ID = [id number] for Jamia stephanie Ellen POCT-GLUCOSE [id number] 13:03:00 Test Item Value Reference Range Interpretation Comments POC-GLUCOSE METER 162 mg/dL 70-110 H : TESTED A T [facility] 6720 (BEAKER) (test code = [facility], 1538) 73981: [facility]/Techni funmi ID = [id number] for Ellen Milner BASIC METABOLIC [id number] 10:45:00 Test Item Value Reference Range Interpretation [...] S NOT APPLICABLE FOR DIALYSIS PATIEN TS. [facility] ID - BINTA [id number] 10:45:00 Test Item Value Reference Range Interpretation Comments MAGNESIUM (BEAKER) (test code = 1.7 mg/dL 1.6-2.6 627) [facility] ID - BINTA [id number] 10:45:00 Test Item Value Reference Range Interpretation Comments PHOSPHORUS (BEAKER) (test code = 2.9 mg/dL 2.3-4.7 604) [facility] ID - BINTA CCALCIUM, [id number] 10:30:00 Test Item Value Reference Range Interpretation Comments CALCIUM IONIZED (BEAKER) (test 1.15 mmol/L 1.12-1.27 code = 698) PH, BLOOD (BEAKER) (test code = 7.38 1810) CBC W/PLT COUNT & AUTO [id number] 10:23:00 Test Item Value Reference Range Interpretation [...] PERCENT (BEAKER) (test code = 2801) POCT-GLUCOSE [id number] 08:36:00 Test Item Value Reference Range Interpretation Comments POC-GLUCOSE METER 188 mg/dL 70-110 H : TESTED A T [facility] 6720 (BEAKER) (test code = [facility], 153) 77632: [facility]/Techni funmi ID = [id number] for Ellen Milner POCT-GLUCOSE [id number] 21:25:00 Test Item Value Reference Range Interpretation Comments POC-GLUCOSE METER 154 mg/dL 70-110 H : TESTED A T [facility] 6720 (BEAKER) (test code = [facility], 153) 12198: [facility]/Techni funmi ID = [id number] for ANASTACIO ALMEIDA POCT-GLUCOSE [id number] 17:27:00 Test Item Value Reference Range Interpretation Comments POC-GLUCOSE METER 142 mg/dL 70-110 H : TESTED A T [facility] 6720 (BEAKER) (test code = [facility], 153) 26777: [facility]/Techni funmi ID = [id number] for Almita Davalos POCT-GLUCOSE [id number] 15:11:00 Test Item Value Reference Range Interpretation Comments POC-GLUCOSE METER 127 mg/dL 70-110 H : TESTED A T [facility] 6720 (BEAKER) (test code [facility], = 1538) 36309: [facility]/Techni funmi ID = [id number] for GINNY ESPINOZA POCT-GLUCOSE [id number] 11:42:00 Test Item Value Reference Range Interpretation Comments POC-GLUCOSE METER 145 mg/dL 70-110 H : TESTED A T [facility] 6720 (BEAKER) (test code = [facility], 153) 10325: [facility]/Techni funmi ID = [id number] for NIKUNJ ARREOLA POCT-GLUCOSE [id number] 08:12:00 Test Item Value Reference Range Interpretation Comments POC-GLUCOSE METER 135 mg/dL 70-110 H : TESTED A T [facility] 6720 (BEAKER) (test code = [facility], 153) 17147: [facility]/Techni funmi ID = [id number] for Almita Davalos BASIC METABOLIC [id number] 05:41:00 Test Item Value Reference Range Interpretation [...] S NOT APPLICABLE FOR DIALYSIS PATIEN TS. [facility] ID - NATASHA [id number] 05:41:00 Test Item Value Reference Range Interpretation Comments MAGNESIUM (BEAKER) (test code = 1.7 mg/dL 1.6-2.6 627) [facility] ID - NATASHA [id number] 05:41:00 Test Item Value Reference Range Interpretation Comments PHOSPHORUS (BEAKER) (test code = 3.9 mg/dL 2.3-4.7 604) [facility] ID - NATASHA MCALCIUM, [id number] 05:24:00 Test Item Value Reference Range Interpretation Comments CALCIUM IONIZED (BEAKER) (test 1.17 mmol/L 1.12-1.27 code = 698) PH, BLOOD (BEAKER) (test code = 7.36 1810) HEMOGLOBIN AND [id number] 05:11:00 Test Item Value Reference Range Interpretation Comments HEMOGLOBIN (BEAKER) (test code = 12.3 GM/DL 13.7-17.5 L 410) HEMATOCRIT (BEAKER) (test code = 39.2 % 40.1-51.0 L 411) [facility] ID - [id number]-GLUCOSE [id number] 22:10:00 Test Item Value Reference Range Interpretation Comments POC-GLUCOSE METER 149 mg/dL 70-110 H : TESTED A T [facility] 6720 (BEAKER) (test code = [facility] [place], 1538) 28328: [facility]/Techni funmi ID = [id number] for Angelica Braden SARS-COV2/RT-PCR ([facility])2020-11-02 19:12:00 Test Item Value Reference Range Interpretation Comments SARS-COV2/RT-PCR (test Negative Not Detected, Negative, code = 6980940) See external report for linked test SARS-COV-2 PERFORMING LAB [facility] DEISI (test code = 6292619) Negative result for this test determines that [...] individuals suspected of COVID-19 by their healthcare provider.This test [...] justifying the authorization of the emergency use ofin vitro diagnostic tests for detection and/or diagnosis of COVID-19 is terminated under Section 564(b)(2) of the Act or the EUA is revoked under Section 564(g) of the Act.Fact Sheet for Healthcare Prov iders:https://www.Gozent.Lolapps/sites/default/files/product/documents/Fact_Sheet_HC _Bakcxtwzb_Jmsv_KPZI-UgC-8.pdfFact Sheet for Healthcare Patients:https://www.[employer].com/sites/default/files/product/docume nts/Dmpc_Ipjex_Vivnesqe_Avye_IBDA-LbH-0.pdfPerforming Laboratory:[facility], [place] [address]QNLU-CGDKCEH METER 2020-11-02 16:15:00 Test Item Value Reference Range Interpretation Comments POC-GLUCOSE METER 149 mg/dL 70-110 H : TESTED A T [facility] 6720 (DARBY) (test code = [facility], 1538) 63010: [facility]/Techni funmi ID = [id number] for NIKUNJ ARREOLA POCT-GLUCOSE [id number] 11:47:00 Test Item Value Reference Range Interpretation Comments POC-GLUCOSE METER 125 mg/dL 70-110 H : TESTED A T [facility] 6720 (BEAKER) (test code = [facility], 1538) 29395: [facility]/Techni funmi ID = [id number] for NIKUNJ ARREOLA POCT-GLUCOSE [id number] 07:26:00 Test Item Value Reference Range Interpretation Comments POC-GLUCOSE METER 115 mg/dL 70-110 H : TESTED A T [facility] 6720 (BEAKER) (test code = [facility], 1538) 43066: [facility]/Techni funmi ID = [id number] for NIKUNJ ARREOLA [id number] 06:04:00 Test Item Value Reference Range Interpretation Comments MAGNESIUM (BEAKER) 1.8 mg/dL 1.6-2.6 Specimen slightly (test code = 627) hemolyzed [facility] ID - [id number] 06:04:00 Test Item Value Reference Range Interpretation Comments PHOSPHORUS (BEAKER) 3.4 mg/dL 2.3-4.7 Specimen slightly (test code = 604) hemolyzed [facility] ID - EDASIBASIC METABOLIC [id number] 06:04:00 Test Item Value Reference Range Interpretation [...] S NOT APPLICABLE FOR DIALYSIS PATIEN TS. [facility] ID - EDASICALCIUM, [id number] 05:54:00 Test Item Value Reference Range Interpretation Comments CALCIUM IONIZED (BEAKER) (test 1.16 mmol/L 1.12-1.27 code = 698) PH, BLOOD (BEAKER) (test code = 7.31 1810) HEMOGLOBIN AND [id number] 05:38:00 Test Item Value Reference Range Interpretation Comments HEMOGLOBIN (BEAKER) (test code = 13.4 GM/DL 13.7-17.5 L 410) HEMATOCRIT (BEAKER) (test code = 41.5 % 40.1-51.0 411) [facility] ID - [id number]-GLUCOSE [id number] 22:01:00 Test Item Value Reference Range Interpretation Comments POC-GLUCOSE METER 82 mg/dL 70-110 : TESTED A T [facility] 6720 (BEAKER) (test code = [facility], 153) 97840: [facility]/Techni funmi ID = [id number] for DEBBIE CRUZ, ADRIENNE POCT-GLUCOSE [id number] 16:27:00 Test Item Value Reference Range Interpretation Comments POC-GLUCOSE METER 112 mg/dL 70-110 H : TESTED A T [facility] 6720 (BEAKER) (test code = [facility], 153) 62277: [facility]/Techni funmi ID = [id number] for DA VIS, KEYAIRA POCT-GLUCOSE [id number] 12:15:00 Test Item Value Reference Range Interpretation Comments POC-GLUCOSE METER 127 mg/dL 70-110 H : TESTED A T [facility] 6720 (BEAKER) (test code = [facility], 153) 80581: [facility]/Techni funmi ID = [id number] for DA VIS, KEYAIRA BASIC METABOLIC [id number] 10:10:00 Test Item Value Reference Range Interpretation [...] S NOT APPLICABLE FOR DIALYSIS PATIEN TS. [facility] ID - [id number] 10:10:00 Test Item Value Reference Range Interpretation Comments MAGNESIUM (BEAKER) (test code = 1.8 mg/dL 1.6-2.6 627) [facility] ID - [id number] 10:10:00 Test Item Value Reference Range Interpretation Comments PHOSPHORUS (BEAKER) (test code = 3.1 mg/dL 2.3-4.7 604) [facility] ID - ADMINCBC W/PLT COUNT & AUTO [id number] 09:45:00 Test Item Value Reference Range Interpretation [...] 0-1 PERCENT (BEAKER) (test code = 2801) CALCIUM, [id number] 09:40:00 Test Item Value Reference Range Interpretation Comments CALCIUM IONIZED (BEAKER) (test 1.17 mmol/L 1.12-1.27 code = 698) PH, BLOOD (BEAKER) (test code = 7.36 1810) POCT-GLUCOSE [id number] 08:24:00 Test Item Value Reference Range Interpretation Comments POC-GLUCOSE METER 120 mg/dL 70-110 H : TESTED A T [facility] 6720 (BEAKER) (test code = [facility], 153) 16650: [facility]/Techni funmi ID = [id number] for DA VIS, KEYAIRA POCT-GLUCOSE [id number] 21:16:00 Test Item Value Reference Range Interpretation Comments POC-GLUCOSE METER 127 mg/dL 70-110 H : TESTED A T [facility] 6720 (BEAKER) (test code = [facility], 153) 92464: [facility]/Techni funmi ID = [id number] for GR AHAM, ADRIENNE POCT-GLUCOSE [id number] 17:14:00 Test Item Value Reference Range Interpretation Comments POC-GLUCOSE METER 89 mg/dL 70-110 : TESTED A T [facility] 6720 (BEAKER) (test code = [facility], 1538) 64265: [facility]/Techni funmi ID = [id number] for AARON S, KEYAIRA POCT-GLUCOSE [id number] 12:42:00 Test Item Value Reference Range Interpretation Comments POC-GLUCOSE METER 125 mg/dL 70-110 H : TESTED A T [facility] 6720 (BEAKER) (test code = [facility], 1538) 32715: [facility]/Techni funmi ID = [id number] for DA VIS, KEYAIRA POCT-GLUCOSE [id number] 09:01:00 Test Item Value Reference Range Interpretation Comments POC-GLUCOSE METER 128 mg/dL 70-110 H : TESTED A T [facility] 6720 (BEAKER) (test code = [facility], 1538) 02846: [facility]/Techni funmi ID = [id number] for DA VIS, KEYAIRA BASIC METABOLIC [id number] 05:47:00 Test Item Value Reference Range Interpretation [...] S NOT APPLICABLE FOR DIALYSIS PATIEN TS. [facility] ID - [id number] 05:47:00 Test Item Value Reference Range Interpretation Comments MAGNESIUM (BEAKER) (test code = 1.8 mg/dL 1.6-2.6 627) [facility] ID - [id number] 05:47:00 Test Item Value Reference Range Interpretation Comments PHOSPHORUS (BEAKER) (test code = 3.1 mg/dL 2.3-4.7 604) [facility] ID - EDASICBC W/PLT COUNT & AUTO [id number] 05:32:00 Test Item Value Reference Range Interpretation [...] PERCENT (BEAKER) (test code = 2801) POCT-GLUCOSE [id number] 22:56:00 Test Item Value Reference Range Interpretation Comments POC-GLUCOSE METER 101 mg/dL 70-110 : TESTED A T [facility] 6720 (BEAKER) (test code [facility], = 1538) 70596: [facility]/Techni funmi ID = [id number] for DEVAN WILLIAM POCT-GLUCOSE [id number] 16:55:00 Test Item Value Reference Range Interpretation Comments POC-GLUCOSE METER 114 mg/dL 70-110 H : TESTED A T [facility] 6720 (BEAKER) (test code = [facility], 1538) 46149: [facility]/Techni funmi ID = [id number] for Ellen Milner POCT-GLUCOSE [id number] 11:46:00 Test Item Value Reference Range Interpretation Comments POC-GLUCOSE METER 147 mg/dL 70-110 H : TESTED A T [facility] 6720 (BEAKER) (test code = [facility], 1538) 38245: [facility]/Techni funmi ID = [id number] for Ellen Milner POCT-GLUCOSE [id number] 07:55:00 Test Item Value Reference Range Interpretation Comments POC-GLUCOSE METER 160 mg/dL 70-110 H : TESTED A T [facility] 6720 (BEAKER) (test code = [facility], 153) 44069: [facility]/Techni funmi ID = [id number] for Ellen Milner BASIC METABOLIC [id number] 06:01:00 Test Item Value Reference Range Interpretation [...] S NOT APPLICABLE FOR DIALYSIS PATIEN TS. [facility] ID - [id number] 06:01:00 Test Item Value Reference Range Interpretation Comments MAGNESIUM (BEAKER) (test code = 2.0 mg/dL 1.6-2.6 627) [facility] ID - [id number] 06:01:00 Test Item Value Reference Range Interpretation Comments PHOSPHORUS (BEAKER) (test code = 2.9 mg/dL 2.3-4.7 604) [facility] ID - EDASICALCIUM, [id number] 05:47:00 Test Item Value Reference Range Interpretation Comments CALCIUM IONIZED (BEAKER) (test 1.12 mmol/L 1.12-1.27 code = 698) PH, BLOOD (BEAKER) (test code = 7.35 1810) CBC W/PLT COUNT & AUTO [id number] 05:42:00 Test Item Value Reference Range Interpretation [...] PERCENT (BEAKER) (test code = 2801) POCT-GLUCOSE [id number] 21:27:00 Test Item Value Reference Range Interpretation Comments POC-GLUCOSE METER 159 mg/dL 70-110 H : TESTED Molina Hines [facility] 6720 (BEAKER) (test code = [facility] [place], 1538) 36752: [facility]/Techni funmi ID = [id number] for Anita Liz ANAEROBIC [id number] 19:20:00 Test Item Value Reference Range Interpretation Comments CULTURE (BEAKER) (test code A 2+ Finegoldia magna = 1095) POCT-GLUCOSE [id number] 16:30:00 Test Item Value Reference Range Interpretation Comments POC-GLUCOSE METER 203 mg/dL 70-110 H : TESTED A T [facility] 6720 (BEAKER) (test code = [facility], 1538) 55401: [facility]/Techni funmi ID = [id number] for RAISA ESCAMILLA R POCT-GLUCOSE [id number] 11:33:00 Test Item Value Reference Range Interpretation Comments POC-GLUCOSE METER 165 mg/dL 70-110 H : TESTED A T [facility] 6720 (BEAKER) (test code = [facility], 1538) 70090: [facility]/Techni funmi ID = [id number] for RAISA ESCAMILLA WOUND CULTURE + GRAM [id number] 10:12:00 Test Item Value Reference Range Interpretation Comments CULTURE (BEAKER) A 1+ Gram pos itive (test code = rods* - Actinot ignum 1095) schaalii GRAM STAIN 1+ WBCs RESULT (BEAKER) (test code = 1123) GRAM STAIN <1+ gram negative RESULT (BEAKER) rods (test code = 827656) GRAM STAIN <1+ gram positive RESULT (BEAKER) rods (test code = 762539) GRAM STAIN 1+ gram positive RESULT (BEAKER) cocci in pairs (test code = 792002) GRAM STAIN 1+ gram positive RESULT (BEAKER) cocci in clusters (test code = 698109) POCT-GLUCOSE [id number] 07:39:00 Test Item Value Reference Range Interpretation Comments POC-GLUCOSE METER 197 mg/dL 70-110 H : TESTED A T [facility] 6720 (BEAKER) (test code = [facility], 1538) 48189: [facility]/Techni funmi ID = [id number] for RAISA ESCAMILLA BASIC METABOLIC [id number] 06:26:00 Test Item Value Reference Range Interpretation [...] S NOT APPLICABLE FOR DIALYSIS PATIEN TS. [facility] ID - NATASHA [id number] 06:26:00 Test Item Value Reference Range Interpretation Comments MAGNESIUM (BEAKER) (test code = 1.9 mg/dL 1.6-2.6 627) [facility] ID - NATASHA [id number] 06:26:00 Test Item Value Reference Range Interpretation Comments PHOSPHORUS (BEAKER) (test code = 2.6 mg/dL 2.3-4.7 604) [facility] ID - NATASHA MCALCIUM, [id number] 05:20:00 Test Item Value Reference Range Interpretation Comments CALCIUM IONIZED (BEAKER) (test 1.12 mmol/L 1.12-1.27 code = 698) PH, BLOOD (BEAKER) (test code = 7.31 1810) CBC W/PLT COUNT & AUTO [id number] 05:19:00 Test Item Value Reference Range Interpretation [...] PERCENT (BEAKER) (test code = 2801) POCT-GLUCOSE [id number] 21:22:00 Test Item Value Reference Range Interpretation Comments POC-GLUCOSE METER 220 mg/dL 70-110 H : TESTED Molina Hines [facility] 6720 (BEAKER) (test code = [facility] [place], 1538) 16414: [facility]/Techni funmi ID = [id number] for ANASTACIO ALMEIDA POCT-GLUCOSE [id number] 18:39:00 Test Item Value Reference Range Interpretation Comments POC-GLUCOSE METER 221 mg/dL 70-110 H : TESTED A T [facility] 6720 (BEAKER) (test code = [facility], 1538) 04330: [facility]/Techni funmi ID = [id number] for RAISA ESCAMILLA POCT-GLUCOSE [id number] 16:49:00 Test Item Value Reference Range Interpretation Comments POC-GLUCOSE METER 185 mg/dL 70-110 H : TESTED A T [facility] 6720 (BEAKER) (test code = [facility], 1538) 94415: [facility]/Techni funmi ID = [id number] for KATHLEEN LANGE POCT-GLUCOSE [id number] 12:31:00 Test Item Value Reference Range Interpretation Comments POC-GLUCOSE METER 206 mg/dL 70-110 H : TESTED A T [facility] 6720 (BEAKER) (test code = [facility], 1538) 24851: [facility]/Techni funmi ID = [id number] for RAISA ESCAMILLA BASIC METABOLIC [id number] 05:43:00 Test Item Value Reference Range Interpretation [...] S NOT APPLICABLE FOR DIALYSIS PATIEN TS. [facility] ID - [id number] 05:43:00 Test Item Value Reference Range Interpretation Comments MAGNESIUM (BEAKER) (test code = 2.0 mg/dL 1.6-2.6 627) [facility] ID - [id number] 05:43:00 Test Item Value Reference Range Interpretation Comments PHOSPHORUS (BEAKER) (test code = 2.9 mg/dL 2.3-4.7 604) [facility] ID - EDASIPOCT-GLUCOSE [id number] 05:40:00 Test Item Value Reference Range Interpretation Comments POC-GLUCOSE METER 200 mg/dL 70-110 H : TESTED A T [facility] 6720 (BEAKER) (test code = [facility], 1538) 04403: [facility]/Techni funmi ID = [id number] for PE INNA, ANASTACIO CALCIUM, [id number] 05:27:00 Test Item Value Reference Range Interpretation Comments CALCIUM IONIZED (BEAKER) (test 1.11 mmol/L 1.12-1.27 L code = 698) PH, BLOOD (BEAKER) (test code = 7.32 1810) HEMOGLOBIN AND [id number] 05:21:00 Test Item Value Reference Range Interpretation Comments HEMOGLOBIN (BEAKER) (test code = 12.0 GM/DL 13.7-17.5 L 410) HEMATOCRIT (BEAKER) (test code = 37.8 % 40.1-51.0 L 411) [facility] ID - 6000POCT-GLUCOSE [id number] 21:50:00 Test Item Value Reference Range Interpretation Comments POC-GLUCOSE METER 151 mg/dL 70-110 H : TESTED A T [facility] 6720 (BEAKER) (test code = [facility], 1538) 05226: [facility]/Techni funmi ID = [id number] for PE INNA, ANASTACIO POCT-GLUCOSE [id number] 16:40:00 Test Item Value Reference Range Interpretation Comments POC-GLUCOSE METER 236 mg/dL 70-110 H : TESTED A T [facility] 6720 (BEAKER) (test code = [facility], 1538) 06692: [facility]/Techni funmi ID = [id number] for Ellen Milner SPIN/CONCENTRATION [id number] 14:16:00 Test Item Value Reference Range Interpretation Comments CONCENTRATION CHARGED (BEAKER) (test Done code = 2657) POCT-GLUCOSE [id number] 11:36:00 Test Item Value Reference Range Interpretation Comments POC-GLUCOSE METER 235 mg/dL 70-110 H : TESTED A T [facility] 6720 (BEAKER) [facility] 1538[facility] 71737: [facility]/Techni funmi ID = [id number] for Ellen Milner POCT-GLUCOSE [id number] 07:47:00 Test Item Value Reference Range Interpretation Comments POC-GLUCOSE METER 248 mg/dL 70-110 H : TESTED A T [facility] 6720 (BEAKER) (test code = [facility], 1538) 13870: [facility]/Techni funmi ID = [id number] for Ellen Milner HEMOGLOBIN [id number] 07:25:00 Test Item Value Reference Range Interpretation Comments HEMOGLOBIN A1C (BEAKER) (test code = 10.0 % 4.3-6.1 H 368) TSH/FREE T4 IF [id number] 06:26:00 Test Item Value Reference Range Interpretation Comments THYROID STIMULATING HORMONE 1.138 uIU/mL 0.350-4.940 (BEAKER) (test code = 772) [facility] ID - PIAYA LBASIC METABOLIC [id number] 06:02:00 Test Item Value Reference Range Interpretation [...] S NOT APPLICABLE FOR DIALYSIS PATIEN TS. [facility] ID - PIGREGORY [id number] 06:01:00 Test Item Value Reference Range Interpretation Comments MAGNESIUM (BEAKER) 1.9 mg/dL 1.6-2.6 Specimen slightly (test code = 627) hemolyzed [facility] ID - PIGREGORY [id number] 06:01:00 Test Item Value Reference Range Interpretation Comments PHOSPHORUS (BEAKER) 2.9 mg/dL 2.3-4.7 Specimen slightly (test code = 604) hemolyzed [facility] ID - PIGREGORY LCALCIUM, [id number] 05:55:00 Test Item Value Reference Range Interpretation Comments CALCIUM IONIZED (BEAKER) (test 1.09 mmol/L 1.12-1.27 L code = 698) PH, BLOOD (BEAKER) (test code = 7.31 1810) CBC W/PLT COUNT & AUTO [id number] 05:42:00 Test Item Value Reference Range Interpretation [...] PERCENT (BEAKER) (test code = 2801) POCT-GLUCOSE [id number] 21:10:00 Test Item Value Reference Range Interpretation Comments POC-GLUCOSE METER 234 mg/dL 70-110 H : TESTED A T [facility] 6720 (BEAKER) (test code = [facility], 1538) 13614: [facility]/Techni funmi ID = [id number] for Anita Liz POCT-GLUCOSE [id number] 18:13:00 Test Item Value Reference Range Interpretation Comments POC-GLUCOSE METER 321 mg/dL 70-110 H : TESTED A T [facility] 6720 (BEAKER) (test code = [facility], 1538) 84969: [facility]/Techni funmi ID = [id number] for JANETT YEBOAH SARS-COV2/RT-PCR ([facility])2020-10-26 11:15:00 Test Item Value Reference Range Interpretation Comments SARS-COV2/RT-PCR (test Negative Not Detected, Negative, code = 9372905) See external report for linked test SARS-COV-2 [facility] (test code = 0144347) Negative result for this test determines that [...] individuals suspected of COVID-19 by their healthcare provider.This test [...] justifying the authorization of the emergency use ofin vitro diagnostic tests for detection and/or diagnosis of COVID-19 is terminated under Section 564(b)(2) of the Act or the EUA is revoked under Section 564(g) of the Act.Fact Sheet for Healthcare Prov iders:https://www.[employer]/sites/default/files/product/documents/Fact_Sheet_HC _Jsgqyidqy_Aofq_TAOI-CzI-8.pdfFact Sheet for Healthcare Patients:https://www.[employer]/sites/default/files/product/docume nts/Oilv_Jvajw_Udhgycng_Ckru_MLAY-QxL-5.pdfPerforming Laboratory:[facility] [place], [place] [address]QXMOE METABOLIC PANEL 2020-10-26 11:12:00 Test Item Value [...] 697) EGFR (BEAKER) (test 84 mL/min/1.73 ESTIMA MEGAN GFR IS code = 1092) sq m NOT ACCURATE CREATININE CLEARANCE IN PREDICTING GLOMERULAR FILTRATION RATE . ESTIMATED GFR I S NOT APPLICABLE FOR DIALYSIS PATIEN TS. [facility] ID - WILDER FCBC W/PLT COUNT & AUTO [id number] 10:52:00 Test Item Value Reference Range Interpretation [...] PERCENT (BEAKER) (test code = 2801) POCT-GLUCOSE [id number] 10:37:00 Test Item Value Reference Range Interpretation Comments POC-GLUCOSE METER 282 mg/dL 70-110 H : TESTED A T [facility] 6720 (BEAKER) (test code = [facility] [place], 1538) 68324: [facility]/Techni funmi ID = [id number] for KS LUCIO JACOB LACTIC ACID, [id number] 06:50:00 Test Item Value Reference Range Interpretation Comments LACTATE BLOOD VENOUS (2) (BEAKER) 1.01 mmol/L 0.50-2.20 (test code = 2872) [facility] ID - CIPRIANO FCOMPREHENSIVE METABOLIC [id number] 06:40:00 Test Item Value Reference Range Interpretation [...] S NOT APPLICABLE FOR DIALYSIS PATIEN TS. [facility] ID - PIAYA LPROTHROMBIN [id number] 06:39:00 Test Item Value Reference Range Interpretation [...] is 2.5-3.5 for patients wiht mechanical heart valves.CBC W/PLT COUNT & AUTO [id number] 06:16:00 Test Item Value Reference Range Interpretation [...]
[2022-10-07] MEDS ORDERED: ASPIRIN EC 81 MG TAB PO ONE (13:09)
[2022-10-07] MEDS ORDERED: LABETALOL HCL 100 MG TAB ONE (13:09)
[2022-10-07] MEDS ORDERED: MORPHINE 4 MG/ML SYR ONE (13:09)
[2022-10-07] MEDS ORDERED: FAMOTIDINE 20 MG/2 ML VIAL IV ONE (13:10)
[2022-10-07] MEDS ORDERED: LABETALOL 20 MG/4ML SYRINGE IV ONE (13:10)
[2022-10-07] MEDS ORDERED: AMLODIPINE 10 MG TAB ONE (13:10)
[2022-10-07] MEDS ORDERED: ONDANSETRON 4 MG/2 ML VIAL ONE (13:10)
[2022-10-07 13:13] LABS: Absolute Lymphocytes (CBC) 1.6 K/uL (0.7-4.9); Hematocrit 47.4 % (39.6-49.0); Lymphocytes % 19.5 % (15.3-44.8); MCV 95.2 fL (80-100); MPV 8.3 fL (7.6-11.3); RBC Red Blood Cell Count 4.98 M/uL (4.33-5.43)
[2022-10-07 13:14] LABS: Protime INR 0.98
[2022-10-07 13:29] LABS: SARS-CoV-2 Antigen Rapid Res Negative (Negative)
--- NOTE | 2022-10-07 13:29 | RAD REPORT ---
EXAM DESCRIPTION: RAD - Chest Single View - 10/07/2022 1:18 pm CLINICAL HISTORY: Cough COMPARISON: Chest Single View dated 01/23/2021; CHEST PA AND LAT 2 VIEW dated 10/22/2012 FINDINGS: Lines: None. Lungs: No evidence of edema or pneumonia. Pleural: No significant pleural effusions or pneumothorax. Cardiac: The heart size is within normal limits. Mediastinum: Within normal limits. Bones: No acute fractures. Other: None IMPRESSION: No acute cardiopulmonary disease.
[2022-10-07 13:49] LABS: Albumin 4.1 g/dL (3.4-5.0); Bilirubin Direct 0.2 mg/dL (0-0.2); Bilirubin Total 0.7 mg/dL (0.2-1.0); Protein, Total 8.8 g/dL (6.4-8.2)
[2022-10-07 13:50] LABS: Magnesium 2.1 mg/dL (1.8-2.4); Potassium 3.9 mmol/L (3.5-5.1)
[2022-10-07 14:27] LABS: Troponin High Sensitivity 31.6 pg/mL (<58.9)
[2022-10-07] MEDS ORDERED: CLINDAMYCIN 900MG/D5W 900 MG/50 ML IVPB IV ONE (15:34)
[2022-10-07] MEDS ORDERED: HYDROMORPHONE HCL 1 MG/ML INJ ONE ×2 (15:34→17:56)
--- NOTE | 2022-10-07 16:00 | RAD REPORT ---
EXAM DESCRIPTION: CT - FC CLINICAL HISTORY: Sublingual/submandibular abscess COMPARISON: No comparisons TECHNIQUE: Axial 2 mm thick images of the face were obtained with sagittal and coronal reconstructio n images. All CT scans are performed using dose optimization technique as appropriate and may include automated exposure control or mA/KV adjustment according to patient size. FINDINGS: Mild inflammatory changes associated with a periapical lucency at the right second molar o n the mandible. This tooth also has a large dental adolfo. Bilateral maxillary sinus thickening. Right -sided subcutaneous edema and skin thickening. No parotid or submandibular lesions. No fractures iden tified. No mastoid effusion. Orbits are intact. No suspicious lymphadenopathy. IMPRESSION: Periapical lucency inflammatory changes associated with a right mandibular second molar consistent with an odontogenic infection. No soft tissue abscess identified. Subcutaneous edema and m ild skin thickening could represent a developing cellulitis.
[2022-10-07] MEDS ORDERED: LIDOCAINE 2% MPF 5 ML VIAL ONE (16:54)
--- NOTE | 2022-10-07 16:55 | ER ---
Nurse's Notes [facility] Name: Wilder Blair Age: 36 yrs Sex: Male : 1985 Arrival Date: 10/07/2022 Time: 12:07 Bed 18 Private MD: Diagnosis: Essential (primary) hypertension;Dental root caries;Dental caries, unspecified-early abscess;Obesity, unspecified;Type 2 diabetes mellitus with hyperglycemia Presentation: 10/07 12:40 Chief complaint: Patient states: "I felt really weird earlier and the ambulance came ss and checked me out and told me that my blood pressure was at stroke levels, 210/ something. I also have this bump that showed up on my gum line yesterday and now everything is all swollen." Pt reports he used to be on blood pressure medications, but lost weight so they took him off and he has not been back to the doctor to follow up in a long time. Coronavirus screen: Client denies travel out of the [place] in the last 14 days. Ebola Screen: Patient denies exposure to infectious person. Patient denies travel to an Ebola-affected area in the 21 days before illness onset. Initial Sepsis Screen: Does the patient meet any 2 criteria? No. Patient's initial sepsis screen is negative. Does the patient have a suspected source of infection? No. Patient's initial sepsis screen is negative. Risk Assessment: Do you want to hurt yourself or someone else? Patient reports no desire to harm self or others. Onset of symptoms was October 07, 2022. 12:40 Method Of Arrival: Ambulatory ss 12:40 Acuity: CALEB 3 ss Historical: - Allergies: 12:43 No Known Allergies; ss - PMHx: 12:43 Asthma; Hypertension; DM; ss - PSHx: 12:43 I\\T\\D; ss - Immunization history:: Client reports receiving the 2nd dose of the Covid vaccine. - Social history:: Smoking status: Patient denies any tobacco usage or history of. Screenin:02 Abuse screen: Denies threats or abuse. Denies injuries from another. Nutritional ld1 screening: No deficits noted. Tuberculosis screening: No symptoms or risk factors identified. Fall Risk None identified. Assessment: 13:46 General: Appears in no apparent distress. comfortable, Behavior is calm, cooperative, ld1 appropriate for age. Pain: Denies pain. Neuro: Level of Consciousness is awake, alert, obeys commands, Oriented to person, place, time, situation. Cardiovascular: Capillary refill < 3 seconds Patient's skin is warm and dry. Rhythm is sinus rhythm. Respiratory: Airway is patent Respiratory effort is even, unlabored. GI: Abdomen is round obese. : No signs and/or symptoms were reported regarding the genitourinary system. EENT: No signs and/or symptoms were reported regarding the EENT system. Derm: No signs and/or symptoms reported regarding the dermatologic system. Musculoskeletal: No signs and/or symptoms reported regarding the musculoskeletal system. 15:30 Reassessment: Patient appears in no apparent distress at this time. Patient and/or ld1 family updated on plan of care and expected duration. Pain level reassessed. 17:15 Reassessment: Pt c/o pain to right jaw/abscess. Notified ERP. See [facility] for orders. ld1 Vital Signs: 12:40 BP 190 / 133; Pulse 111; Resp 17; Temp 98.4(TE); Pulse Ox 100% ; Weight 163.29 kg; ss Height 5 ft. 10 in. (177.80 cm); Pain 0/10; 13:46 BP 182 / 115; Pulse 93; Resp 18; Pulse Ox 98% on R/A; ld1 14:47 BP 179 / 118; Pulse 95; Resp 18; Pulse Ox 97% on R/A; ld1 16:04 BP 197 / 114; Pulse 99; Resp 18; Pulse Ox 97% on R/A; ld1 17:15 BP 189 / 106; Pulse 95; Resp 18; Pulse Ox 100% on R/A; ld1 12:40 Body Mass Index 51.65 (163.29 kg, 177.80 cm) ED Course: 12:07 Patient arrived in ED. as 12:43 Triage completed. ss 12:43 Arm band placed on right wrist. ss 12:44 Jaqui Green, JANNETH is Primary Nurse. ld1 12:47 Pako Anton MD is Attending Physician. yolanda 13:05 COVID swab sent to lab. jw7 13:06 SARS RAPID Sent. ld1 13:19 XRAY Chest (1 view) In Process Unspecified. EDMS 13:23 EKG done, by ED staff, reviewed by Pako Anton MD. jw7 13:25 SARS RAPID Sent. ld1 15:49 CT Maxillofacial W/cont In Process Unspecified. EDMS 16:53 Pato Luna DDS is Referral Physician. [facility] 18:02 Assist provider with I \\T\\ D: of an abscess on right jaw Set up I\\T\\D tray. Performed by ld 1 Jaqui Green RN Patient tolerated well. IV discontinued, intact, bleeding controlled, No redness/swelling at site. 18:03 Patient has correct armband on for positive identification. Placed in gown. Bed in low ld1 position. Call light in reach. Side rails up X2. court recording monitor on. Pulse ox on. NIBP on. Door closed. Noise minimized. Warm blanket given. Administered Medications: 13:24 Drug: Aspirin 81 mg Route: PO; ld1 13:24 Drug: Labetalol 20 mg Route: IV; Rate: per protocol; Infused Over: 2 mins; Site: left ld1 antecubital; 13:24 Drug: Labetalol 100 mg Route: PO; ld1 13:24 Drug: Norvasc (amlodipine) 10 mg Route: PO; ld1 13:24 Drug: Pepcid (famotidine) 20 mg Route: IVP; Site: left antecubital; ld1 13:24 Drug: morphine 4 mg Route: IVP; Infused Over: 4 mins; Site: left antecubital; ld1 13:24 Drug: Zofran (Ondansetron) 4 mg Route: IVP; Site: left antecubital; ld1 14:02 Drug: Labetalol 20 mg Route: IV; Rate: per protocol; Infused Over: 2 mins; Site: left ld1 antecubital; 15:32 Not Given (Wrong orderr): Cardizem (diltiazem) 30 mg PO once ss 15:40 Drug: Clindamycin 900 mg Route: IVPB; Infused Over: 30 mins; Site: left antecubital; ld1 15:40 Drug: Dilaudid (HYDROmorphone) 1 mg Route: IVP; Site: left antecubital; ld1 17:20 Drug: Insulin Regular Human 10 units {Co-Signature: ss (Diane Priest RN).} Route: ld1 Sub-Q; Site: left upper arm; 17:20 Drug: Lisinopril 20 mg Route: PO; ld1 Medication: 18:03 VIS not applicable for this client. ld1 Outcome: 16:55 Discharge ordered by . yolanda 18:03 Discharged to home via wheelchair, with family. ld1 18:03 Condition: stable 18:03 Discharge instructions given to patient, family, Instructed on discharge instructions, follow up and referral plans. medication usage, Demonstrated understanding of instructions, follow-up care, medications, Prescriptions given X 4. 18:03 Patient left the ED. ld1 Signatures: Dispatcher [employer] EDTX Pako Anton MD MD cha Martinez, Amelia as Smirch, Shelby, RN RN ss Jaqui Green RN RN ld1 Clara Simpson jw7 Diane Priest RN ss Corrections: (The following items were deleted from the chart) 12:44 12:43 PMHx: Diabetes - IDDM; ss ss 12:44 12:43 PMHx: Diabetes - NIDDM; ss ss
--- NOTE | 2022-10-07 16:55 | EDPHYS ---
Physician Documentation [facility] Name: Wilder Blair Age: 36 yrs Sex: Male : 1985 Arrival Date: 10/07/2022 Time: 12:07 Bed 18 Private MD: SHAYY Physician Pako Anton HPI: 10/07 16:47 This 36 yrs old Male presents to ER via Ambulatory with complaints of High yolanda Blood Pressure, Jaw Pain. 16:47 The patient has elevated blood pressure and discovered this at home, with a home yolanda device. Onset: The symptoms/episode began/occurred 3 day(s) ago. Modifying factors: The symptoms are aggravated by activity, The symptoms are alleviated by remaining still. Associated signs and symptoms: The patient has no apparent associated signs or symptoms. Severity of symptoms: At its worst the blood pressure was moderate, in the emergency department the blood pressure is unchanged. The patient has experienced similar episodes in the past, multiple times. Historical: - Allergies: 12:43 No Known Allergies; ss - PMHx: 12:43 Asthma; Hypertension; DM; ss - PSHx: 12:43 I\T\D; ss - Immunization history:: Client reports receiving the 2nd dose of the Covid vaccine. - Social history:: Smoking status: Patient denies any tobacco usage or history of. ROS: 16:49 Constitutional: Negative for fever, chills, and weight loss, Eyes: Negative for injury, yolanda pain, redness, and discharge, Neck: Negative for injury, pain, and swelling, Cardiovascular: Negative for chest pain, palpitations, and edema, Respiratory: Negative for shortness of breath, cough, wheezing, and pleuritic chest pain, Abdomen/GI: Negative for abdominal pain, nausea, vomiting, diarrhea, and constipation, Back: Negative for injury and pain, : Negative for injury, bleeding, discharge, and swelling, MS/Extremity: Negative for injury and deformity, Skin: Negative for injury, rash, and discoloration, Neuro: Negative for headache, weakness, numbness, tingling, and seizure, Psych: Negative for depression, anxiety, suicide ideation, homicidal ideation, and hallucinations, Allergy/Immunology: Negative for hives, rash, and allergies, Endocrine: Negative for neck swelling, polydipsia, polyuria, polyphagia, and marked weight changes, Hematologic/Lymphatic: Negative for swollen nodes, abnormal bleeding, and unusual bruising. 16:49 ENT: Positive for Gum pain Teeth pain Exam: 16:49 Constitutional: This is a well developed, well nourished patient who is awake, alert, yolanda and in no acute distress. Head/Face: Normocephalic, atraumatic. Eyes: Pupils equal round and reactive to light, extra-ocular motions intact. Lids and lashes normal. Conjunctiva and sclera are non-icteric and not injected. Cornea within normal limits. Periorbital areas with no swelling, redness, or edema. Neck: Trachea midline, no thyromegaly or masses palpated, and no cervical lymphadenopathy. Supple, full range of motion without nuchal rigidity, or vertebral point tenderness. No Meningismus. Chest/axilla: Normal chest wall appearance and motion. Nontender with no deformity. No lesions are appreciated. Cardiovascular: Regular rate and rhythm with a normal S1 and S2. No gallops, murmurs, or rubs. Normal PMI, no JVD. No pulse deficits. Respiratory: Lungs have equal breath sounds bilaterally, clear to auscultation and percussion. No rales, rhonchi or wheezes noted. No increased work of breathing, no retractions or nasal flaring. Abdomen/GI: Soft, non-tender, with normal bowel sounds. No distension or tympany. No guarding or rebound. No evidence of tenderness throughout. Back: No spinal tenderness. No costovertebral tenderness. Full range of motion. Male : Normal genitalia with no discharge or lesions. Skin: Warm, dry with normal turgor. Normal color with no rashes, no lesions, and no evidence of cellulitis. MS/ Extremity: Pulses equal, no cyanosis. Neurovascular intact. Full, normal range of motion. Neuro: Awake and alert, GCS 15, oriented to person, place, time, and situation. Cranial nerves II-XII grossly intact. Motor strength 5/5 in all extremities. Sensory grossly intact. Cerebellar exam normal. Normal gait. Psych: Awake, alert, with orientation to person, place and time. Behavior, mood, and affect are within normal limits. 16:49 ENT: Mouth: Lips: normal, Oral mucosa: normal, Gums: noted to have cellulitis, reddened, swollen, on the lower right second molar. 16:58 ECG was reviewed by the Attending Physician. [facility] Vital Signs: 12:40 BP 190 / 133; Pulse 111; Resp 17; Temp 98.4(TE); Pulse Ox 100% ; Weight 163.29 kg; ss Height 5 ft. 10 in. (177.80 cm); Pain 0/10; 13:46 BP 182 / 115; Pulse 93; Resp 18; Pulse Ox 98% on R/A; ld1 14:47 BP 179 / 118; Pulse 95; Resp 18; Pulse Ox 97% on R/A; ld1 16:04 BP 197 / 114; Pulse 99; Resp 18; Pulse Ox 97% on R/A; ld1 17:15 BP 189 / 106; Pulse 95; Resp 18; Pulse Ox 100% on R/A; ld1 12:40 Body Mass Index 51.65 (163.29 kg, 177.80 cm) Procedures: 16:50 I \T\ D: Incision and drainage was performed for an abscess of the right lower right yolanda second molar Anesthetized with 3 ml's 1% Lidocaine. Incised with #11 blade. Drained small amount purulent fluid. the patient tolerated the procedure well. MDM: 12:47 Patient medically screened. yolanda 16:50 Differential diagnosis: dental caries, gingivitis, dental abscess, hypertensive crisis, yolanda Malignant HTN. Data reviewed: vital signs, nurses notes, lab test result(s), EKG, radiologic studies, CT scan. Data interpreted: cardiopulmonary technologist chief: rate is 99 beats/min, rhythm is regular, Pulse oximetry: on room air is 97 %. Test interpretation: by ED physician or midlevel provider: ECG, plain radiologic studies. Counseling: I had a detailed discussion with the patient and/or guardian regarding: the historical points, exam findings, and any diagnostic results supporting the discharge/admit diagnosis, lab results, radiology results, the need for outpatient follow up, for definitive care, a dentist, a family practitioner, an oral maxilofacial specialist. 10/07 12:50 Order name: Basic Metabolic Panel; Complete Time: 15:14 [facility] 10/07 12:50 Order name: CBC with Diff; Complete Time: 15:14 [facility] 10/07 12:50 Order name: LFT's; Complete Time: 15:14 [facility] 10/07 12:50 Order name: Magnesium; Complete Time: 15:14 [facility] 10/07 12:50 Order name: NT PRO-BNP; Complete Time: 15:14 [facility] 10/07 12:50 Order name: PT-INR; Complete Time: 15:14 [facility] 10/07 12:50 Order name: Troponin HS; Complete Time: 15:14 [facility] 10/07 12:50 Order name: XRAY Chest (1 view); Complete Time: 15:14 [facility] 10/07 12:50 Order name: SARS RAPID; Complete Time: 15:14 [facility] 10/07 15:32 Order name: CT Maxillofacial W/cont; Complete Time: 16:42 10/07 12:50 Order name: EKG; Complete Time: 12:50 [facility] 10/07 12:50 Order name: Cardiac monitoring; Complete Time: 13:25 [facility] 10/07 12:50 Order name: EKG - Nurse/Tech; Complete Time: 13:25 [facility] 10/07 12:50 Order name: IV Saline Lock; Complete Time: 13:06 [facility] 10/07 12:50 Order name: Labs collected and sent; Complete Time: 13:06 [facility] 10/07 12:50 Order name: O2 Per Protocol; Complete Time: 13: [facility] 10/07 12:50 Order name: O2 Sat Monitoring; Complete Time: 13:06 [facility] EC:58 Rate is 100 beats/min. Rhythm is regular. QRS [place] is Normal. IA interval is normal. [facility] QRS interval is normal. QT interval is normal. No Q waves. T waves are Normal. No ST changes noted. Clinical impression: NSR w/ Non-specific ST/T Changes and No evidence of ischemia. Interpreted by me. Reviewed by me. Administered Medications: 13:24 Drug: Aspirin 81 mg Route: PO; ld1 13:24 Drug: Labetalol 20 mg Route: IV; Rate: per protocol; Infused Over: 2 mins; Site: left ld1 antecubital; 13:24 Drug: Labetalol 100 mg Route: PO; ld1 13:24 Drug: Norvasc (amlodipine) 10 mg Route: PO; ld1 13:24 Drug: Pepcid (famotidine) 20 mg Route: IVP; Site: left antecubital; ld1 13:24 Drug: morphine 4 mg Route: IVP; Infused Over: 4 mins; Site: left antecubital; ld1 13:24 Drug: Zofran (Ondansetron) 4 mg Route: IVP; Site: left antecubital; ld1 14:02 Drug: Labetalol 20 mg Route: IV; Rate: per protocol; Infused Over: 2 mins; Site: left ld1 antecubital; 15:32 Not Given (Wrong orderr): Cardizem (diltiazem) 30 mg PO once ss 15:40 Drug: Clindamycin 900 mg Route: IVPB; Infused Over: 30 mins; Site: left antecubital; ld1 15:40 Drug: Dilaudid (HYDROmorphone) 1 mg Route: IVP; Site: left antecubital; ld1 17:20 Drug: Insulin Regular Human 10 units {Co-Signature: venkat (Diane Priest RN).} Route: ld1 Sub-Q; Site: left upper arm; 17:20 Drug: Lisinopril 20 mg Route: PO; ld1 Disposition Summary: 10/07/22 16:55 Discharge Ordered Location: Home yolanda Problem: new yolanda Symptoms: have improved yolanda Condition: Stable yolanda Diagnosis - Essential (primary) hypertension yolanda - Dental root caries yolanda - Dental caries, unspecified - early abscess yolanda - Obesity, unspecified yolanda - Type 2 diabetes mellitus with hyperglycemia yolanda Followup: yolanda - With: Private Physician - When: 2 - 3 days - Reason: Recheck today's complaints, Continuance of care, Re-evaluation by your physician Followup: yolanda - With: Pato Luna DDS - When: 2 - 3 days - Reason: Recheck today's complaints, Continuance of care, Re-evaluation by your physician Discharge Instructions: - Discharge Summary Sheet yolanda - Dental Caries, Adult yolanda - Dental Pain yolanda - Type 2 Diabetes Mellitus, Diagnosis, Adult yolanda - Hyperglycemia yolanda - Hypertension, Adult yolanda - Obesity, Adult yolanda - Hypertension, Adult, [id number] yolanda - Diabetes Mellitus and Exercise yolanda - Diabetes Mellitus and Nutrition, Adult yolanda - How to Take Your Blood Pressure, [id number] yolanda - Managing Your Hypertension yolanda Forms: - Medication Reconciliation Form yolanda - Thank You Letter yolanda - Antibiotic Education yolanda - Prescription Opioid Use yolanda Prescriptions: - Clindamycin HCl 300 mg Oral Capsule - take 1 capsule by ORAL route every 6 hours for 10 days; 40 capsule; Refills: 0, yolanda Product Selection Permitted - Norvasc 10 mg Oral Tablet - take 1 tablet by ORAL route once daily; 30 tablet; Refills: 0, Product yolanda Selection Permitted - Metformin 500 mg Oral Tablet - take 1 tablet by ORAL route 2 times per day for 21 days Then take 1 tablet with yolanda morning meals AND evening meals; 42 tablet; Refills: 0, Product Selection Permitted - Lisinopril 20 mg Oral Tablet - take 1 tablet by ORAL route once daily; 20 tablet; Refills: 0, Product yolanda Selection Permitted - Tylenol-Codeine #3 300 mg-30 mg Oral - take 2 tablet by ORAL route every 6 hours; 20 tablet; Refills: 0, Product yolanda Selection Permitted Signatures: Dispatcher [employer] EDMS Pako Anton MD MD cha Smirch, Shelby, RN RN Jaqui Green RN RN ld1 Diane Priest RN Corrections: (The following items were deleted from the chart) 12:44 12:43 PMHx: Diabetes - IDDM; [facility] 12:44 12:43 PMHx: Diabetes - NIDDM; [facility]
[2022-10-07] MEDS ORDERED: lisinopriL 20 MG TAB ONE (17:00)
[2022-10-07] MEDS ORDERED: INSULIN -REGULAR HUMAN 50 UNIT/0.5 ML ML ONE (17:00)
[2022-10-07 18:08] VITALS: TEMP 98.4
[2022-10-07 18:13] VITALS: BP 189/106; O2SAT 100
--- NOTE | 2022-10-08 19:12 | EKG ---
Test Date: 2022-10-07 Test Time: 13:20:07 Dumbwaiter Operator: SHIRLENE MEASUREMENT RESULTS: Intervals: Rate: 100 ID: [id number] QRSD: 74 QT: 338 QTc: 436 [place]: P: 1 ID: [id number] QRS: -26 T: 25 INTERPRETIVE STATEMENTS: Normal sinus rhythm Normal ECG Compared to ECG 01/23/2021 13:47:27 Sinus tachycardia no longer present Left-axis deviation no longer present Myocardial infarct finding no longer present Electronically Signed On 10-08-22 19:10:27 INSTRUMENTATION AND CONTROL TECHNICIAN by Chris Byrne
== END 2022-10-07 18:03 | disposition home or self-care (01) ==
LOC: ER 11:58
DX: I10 Essential (primary) hypertension (principal); K02.7 Dental root caries; K02.9 Dental caries, unspecified; K04.7 Periapical abscess without sinus; E11.65 Type 2 diabetes mellitus with hyperglycemia; E66.9 Obesity, unspecified; Z68.43 Body mass index [BMI] 50.0-59.9, adult; Z20.822 Contact with and (suspected) exposure to COVID-19
CPT/HCPCS: 93005; 85025; 80048; 36415; 83735; 85610; 80076; 84484; 83880; 70487; 71045; 96375; 96372; 96374; 99285; 87811; Q9967; J1815; J2001; J1170 ×2; J2405

== ENCOUNTER 2024-02-07 06:15 | Observation (INO) | payer BC, OTHER ==
[2024-02-07] MEDS ORDERED: IPRATROPIUM BROM 0.5MG/2.5ML ONE ×2 (06:49→09:29)
[2024-02-07] MEDS ORDERED: HYDROCODONE/APAP 10/325 TAB ONE (06:49)
[2024-02-07] MEDS ORDERED: ALBUTEROL 2.5 MG/3 ML NEB SOL ONE ×2 (06:49→09:29)
[2024-02-07] MEDS ORDERED: CEFTRIAXONE 1000 MG/VIAL ONE (06:49)
[2024-02-07] MEDS ORDERED: NA CHLORIDE 0.9% 2,000 ML ONE (06:50)
[2024-02-07] MEDS ORDERED: PROMETHAZINE 25 MG TABLET ONE (06:50)
[2024-02-07 06:52] LABS: Protime INR 1.09
[2024-02-07 06:53] LABS: Absolute Eosinophils 0.2 K/uL (0-0.5); Absolute Lymphocytes (CBC) 1.5 K/uL (0.7-4.9); Absolute Monocytes 0.6 K/uL (0.1-1.3); Absolute Neutrophil 5.2 K/uL (1.8-8.0); Basophils % 0.7 % (0-1.3); Eosinophils % 2.6 % (0-4.4); Hematocrit 43.7 % (39.6-49.0); Hemoglobin 15.1 g/dL (13.6-17.9); Lymphocytes % 20.3 % (15.3-44.8); MCH 33.1 pg (27.0-35.0); MCHC 34.5 g/dL (32.0-36.0); MCV 95.8 fL (80-100); MPV 8.9 fL (7.6-11.3); Monocytes % 7.6 % (3.3-12.3); Neutrophils % 68.8 % (41.7-73.7); Nucleated Red Blood Cells % 0.4 % (0-0); Platelets 241 thou/uL (152-406); RBC Red Blood Cell Count 4.56 M/uL (4.33-5.43); Red Cell Distribution Width 13.4 % (12.1-15.2)
[2024-02-07 06:54] LABS: Absolute Basophils 0.1 K/uL (0-0.5)
[2024-02-07 07:04] LABS: SARS-CoV-2 Antigen CONTROL BLUE LINE VIS/BG OK; SARS-CoV-2 Antigen Rapid Res Negative (Negative)
[2024-02-07 07:15] LABS: Albumin 3.6 g/dL (3.4-5.0); Albumin/Globulin Ratio 0.9 (1.1-1.8); Anion Gap 13.3 mEq/L (5.0-15.0); Bilirubin Direct 0.2 mg/dL (0-0.2); Bilirubin Indirect, Calculated 0.4 mg/dL (0.2-0.8); Bilirubin Total 0.6 mg/dL (0.2-1.0); Magnesium 2.1 mg/dL (1.6-2.4); Potassium 4.3 mEq/L (3.5-5.1); Protein, Total 7.6 g/dL (6.4-8.2); Troponin High Sensitivity 12.3 pg/mL (<58.9)
--- NOTE | 2024-02-07 08:07 | RAD REPORT ---
[facility] 6:47 am CLINICAL HISTORY: CHEST PAIN COMPARISON: Chest Single View dated 07/27/2023; Chest Single View dated 10/07/2022; Chest Single View dated 01/23/2021; CHEST PA AND LAT 2 VIEW dated 10/22/2012Chest Single View dated 07/27/2023; Chest Single View dated 10/07/2022; Chest Single View dated 01/23/2021; CHEST PA AND LAT 2 VIEW dated 10/22/2012 TECHNIQUE: Portable AP view of the chest. FINDINGS: Decreased inspiratory effort limits evaluation. The lungs are clear. No pneumothorax or e ffusion. The cardiomediastinal contours are unremarkable. IMPRESSION: No acute cardiopulmonary process.
--- NOTE | 2024-02-07 08:34 | RAD REPORT ---
EXAM DESCRIPTION: CT - Chest For Pe Angio - 02/07/2024 7:56 am CLINICAL HISTORY: Cough;Chest pain COMPARISON: Chest For Pe Angio dated 07/27/2023; Chest For Pe Angio dated 01/23/2021 TECHNIQUE: Thin axial CT images of the chest were obtained following administration of 100 mL Isovue 370 IV contrast. Multiplanar reconstructions, and maximum intensity projection reconstructions were generated and reviewed. Exam utilizes a protocol for optimal evaluation of pulmonary arterial tree. All CT scans are performed using dose optimization technique as appropriate and may include automated exposure control or mA/KV adjustment according to patient size. FINDINGS: Pulmonary arteries are normal. No emboli or other suspicious finding. No acute or signific ant aorta findings. No mass or infiltrate in the lung parenchyma. No pleural thickening or pleural effusion. No pneumotho rax. No abnormal mediastinal or hilar masses or lymphadenopathy seen. No chest wall mass or abnormal axill iary lymphadenopathy. IMPRESSION: No evidence of acute central pulmonary emboli. Negative CT scan of the chest for other significant findings.
--- NOTE | 2024-02-07 09:23 | EDPHYS ---
Physician Documentation [facility] Name: Wilder Blair Age: 38 yrs Sex: Male : 1985 Arrival Date: 02/07/2024 Time: 06:15 Bed 7 Private MD: ED Physician Chirag Adkins HPI: 02/06 06:17 This 38 yrs old Male presents to ER via Unassigned with complaints of Chest sp4 Tightness, lightheaded. 06:19 38-year-old male presents with chest tightness and lightheadedness. sp4 Historical: - Allergies: 06:42 No Known Allergies; pf1 - PMHx: 06:42 Asthma; DM; Hypertension; pf1 - PSHx: 06:42 I\T\D; pf1 - Immunization history:: Adult Immunizations not up to date, Client reports receiving the 2nd dose of the Covid vaccine, pfizer Last tetanus immunization: > 10 years ago Flu vaccine is not up to date. - Social history:: Smoking status: Patient denies any tobacco usage or history of. Patient uses alcohol, occasionally. street drugs, marijuana. - Family history:: not pertinent. ROS: 06:19 Constitutional: Negative for fever, chills, and weight loss, positive for chest sp4 tightness and lightheadedness 06:19 All other systems are negative, Exam: 06:19 Constitutional: This is a well developed, well nourished patient who is awake, alert, sp4 and in no acute distress. Head/Face: Normocephalic, atraumatic. Eyes: Pupils equal round and reactive to light, extra-ocular motions intact. Lids and lashes normal. Conjunctiva and sclera are not injected. Cornea within normal limits. Periorbital areas with no swelling, redness, or edema. ENT: Nares patent. No nasal discharge, no septal abnormalities noted. Tympanic membranes are normal and external auditory canals are clear. Oropharynx with no redness, swelling, or masses, exudates, or evidence of obstruction, uvula midline. Mucous membranes moist. Neck: Trachea midline, no thyromegaly or masses palpated, and no cervical lymphadenopathy. Supple, full range of motion without nuchal rigidity, or vertebral point tenderness. Chest/axilla: Normal chest wall appearance and motion. Nontender with no deformity. No lesions are appreciated. Cardiovascular: Regular rate and rhythm with a normal S1 and S2. No gallops, murmurs, or rubs. Normal PMI, no JVD. No pulse deficits. Respiratory: Lungs have equal breath sounds bilaterally, clear to auscultation and percussion. No rales, rhonchi or wheezes noted. No increased work of breathing, no retractions or nasal flaring. Abdomen/GI: Soft, with normal bowel sounds. No distension or tympany. No guarding or rebound. No evidence of tenderness throughout. Back: No spinal tenderness. No costovertebral tenderness. Skin: Warm, dry with normal turgor. Normal color with no rashes, no lesions, and no evidence of cellulitis. MS/ Extremity: Pulses equal, no cyanosis. Neurovascular intact. Full, normal range of motion. Neuro: Awake and alert, GCS 15, oriented to person, place, time, and situation. Cranial nerves II-XII grossly intact. Motor strength 5/5 in all extremities. Sensory grossly intact. Psych: Awake, alert, with orientation to person, place and time. Behavior, mood, and affect are within normal limits 06:37 ECG was reviewed by the Attending Physician. EKG at 0 621. Sinus tachycardia at a sp4 rate of 138. Left axis deviation. Vital Signs: 06:19 BP 189 / 110; Pulse 140; Resp 18; Temp 98.7; Pulse Ox 97% on R/A; Weight 158.76 kg; pf1 Height 5 ft. 10 in. ; Pain 0/10; 06:44 BP 161 / 108; Pulse 135; Resp 20 S; Pulse Ox 97% on R/A; ha1 07:30 BP 164 / 98; Pulse 129; Resp 19; Pulse Ox 97% on R/A; rs5 08:24 BP 160 / 95; Pulse 123; Resp 19; Pulse Ox 96% on R/A; rs5 09:36 BP 146 / 82; Pulse 108; Resp 24; Pulse Ox 100% ; bp 10:45 BP 163 / 92; Pulse 106; Resp 24; Temp 98.9; Pulse Ox 94% on 2 lpm NC; bp 06:19 Body Mass Index 50.22 (158.76 kg, 177.8 cm) pf1 06:19 Pain Scale: Adult pf1 MDM: 06:19 Patient medically screened. sp4 07:08 Data reviewed: vital signs, nurses notes, lab test result(s), EKG, radiologic studies. sp3 ED course: Patient signed out to me by night physician. 8-year-old male with asthma hypertension with probable failed outpatient pneumonia. Patient's heart rate still in the 130s. Chest pain is somewhat resolved. Workup is pending per disposition probable admission pending workup and patient reevaluation.. 09:19 ED course: CT scan of the chest is negative. Patient continues to have severe coughing sp3 and continues to be tachycardic despite being off of albuterol. Mild wheezing also continues. He is tachypneic. Will place in 23-hour observation with continued steroids and nebulizers as needed.. 02/06 06:18 Order name: Basic Metabolic Panel; Complete Time: 07:34 sp4 02/06 06:18 Order name: CBC with Diff; Complete Time: 07:34 sp4 02/06 06:18 Order name: LFT's; Complete Time: 07:34 sp4 02/06 06:18 Order name: Magnesium; Complete Time: 07:34 sp4 02/06 06:18 Order name: NT PRO-BNP; Complete Time: 07:34 sp4 02/06 06:18 Order name: PT-INR; Complete Time: 07:02 sp4 02/06 06:18 Order name: Troponin HS; Complete Time: 07:34 sp4 02/06 06:20 Order name: SARS RAPID; Complete Time: 07:34 sp4 02/06 06:20 Order name: Influenza Screen (a \T\ B); Complete Time: 07:34 sp4 02/06 07:03 Order name: Lactate w/ 2H reflex if indic.; Complete Time: 08:23 sp3 02/06 07:03 Order name: Blood Culture Adult (2) sp3 02/06 10:13 Order name: Basic Metabolic Panel EDMS 02/06 10:13 Order name: Basic Metabolic Panel EDMS 02/06 10:13 Order name: Basic Metabolic Panel EDMS 02/06 10:13 Order name: CBC with Automated Diff EDMS 02/06 10:13 Order name: CBC with Automated Diff EDMS 02/06 10:13 Order name: CBC with Automated Diff EDMS 02/06 10:13 Order name: Magnesium EDMS 02/06 10:13 Order name: Magnesium EDMS 02/06 10:13 Order name: Magnesium EDMS 02/06 10:13 Order name: Phosphorus EDMS 02/06 10:13 Order name: Phosphorus EDMS 02/06 10:13 Order name: Phosphorus EDMS 02/06 06:18 Order name: XRAY Chest (1 view); Complete Time: 08:23 sp4 02/06 07:35 Order name: CT Chest For PE Angio; Complete Time: 09:14 sp3 02/06 06:18 Order name: EKG; Complete Time: 06:19 sp4 02/06 06:18 Order name: Cardiac monitoring; Complete Time: 06:42 sp4 02/06 06:18 Order name: EKG - Nurse/Tech; Complete Time: 06:42 sp4 02/06 06:18 Order name: IV Saline Lock; Complete Time: 06:42 sp4 02/06 06:18 Order name: Labs collected and sent; Complete Time: 06:42 sp4 02/06 06:18 Order name: O2 Per Protocol; Complete Time: 06:42 sp4 02/06 06:18 Order name: O2 Sat Monitoring; Complete Time: 06:42 sp4 EC:37 Rate is 138 beats/min. Rhythm is regular, Sinus tachycardia. Left axis deviation noted. sp4 [place] interval is normal. QRS interval is normal. QT interval is normal. No Q waves. T waves are Normal. No ST changes noted. Clinical impression: No evidence of ischemia. Interpreted by me. Reviewed by me. Administered Medications: 06:45 Drug: NS 0.9% IV 1000 ml IV at 1 bolus Per protocol; 1000 mL bolus Route: IV; Rate: 1 ha1 bolus; Site: left antecubital; 07:05 Follow up: Response: No adverse reaction rs5 11:21 Follow up: IV Status: Completed infusion; IV Intake: 1000ml bp 06:45 Drug: Rocephin - Rocephin (cefTRIAXone) IVPB 1 grams IVPB once over 30 mins; (mix in 50 ha1 mL NS) Route: IVPB; Infused Over: 30 mins; Site: left antecubital; 07:10 Follow up: Response: No adverse reaction rs5 11:21 Follow up: IV Status: Completed infusion; IV Intake: 100ml bp 06:45 Drug: NS 0.9% IV 1000 ml IV at 1 bolus Per protocol; 1000 mL bolus Route: IV; Rate: 1 ha1 bolus; Site: left antecubital; 07:05 Follow up: Response: No adverse reaction rs5 11:21 Follow up: IV Status: Completed infusion; IV Intake: 1000ml bp 06:50 Drug: [place] PO 10 mg-325 mg 2 tabs PO once Route: PO; ha1 07:30 Follow up: Response: No adverse reaction; Pain is decreased rs5 06:50 Drug: Promethazine PO 25 mg PO once Route: PO; ha1 07:10 Follow up: Response: No adverse reaction rs5 07:00 Drug: Albuterol Inhalation 2.5 mg Inhalation once Route: Inhalation; ha1 07:10 Follow up: Response: No adverse reaction rs5 07:00 Drug: Ipratropium Inhalation Aerosol 0.5 mg Inhalation once Route: Inhalation; ha1 07:15 Follow up: Response: No adverse reaction rs5 09:36 Drug: MethylPrednisoLONE IVP 125 mg IVP once Route: IVP; Site: left antecubital; bp 11:20 Follow up: Response: No adverse reaction bp 09:36 Drug: DuoNeb Nebulize (3:1) (2.5 mg - 0.5 mg) 3 ml Nebulizer once Route: Nebulizer; bp 11:20 Follow up: Response: No adverse reaction bp 09:36 Drug: levofloxacin IVPB 500 mg 100 ml IVPB once over 60 mins Volume: 100 ml; Route: bp IVPB; Infused Over: 60 mins; Site: left antecubital; 11:20 Follow up: IV Status: Completed infusion; IV Intake: 100ml bp Disposition Summary: 02/07/24 09:22 Hospitalization Ordered Notes: Hospitalization Status: Observation sp3 Provider: Mario Lagunas spYelitza Location: Telemetry/MedSurg (observation) sp3 Condition: Stable sp3 Problem: new sp3 Symptoms: have worsened sp3 Bed/Room Type: Standard sp3 Room Assignment: 405(02/07/24 10:40) bd Diagnosis - Bronchitis, bronchospasm, tachycardia sp3 Forms: - Medication Reconciliation Form sp3 - SBAR form sp3 - Leadership Thank You Letter sp3 Signatures: Dispatcher [employer] EDMS Anh Eller Brian, RN RN bp Chirga Adkins MD MD sp3 Constanza Guzman, RN RN ha1 Sarah Faustin RN RN pf1 Suleiman Al MD MD sp4 Marck Gee RN rs5 Corrections: (The following items were deleted from the chart) 10:40 09:22 sp3 bd
--- NOTE | 2024-02-07 09:23 | ER ---
Nurse's Notes [facility] Name: Wilder Blair Age: 38 yrs Sex: Male : 1985 Arrival Date: 02/07/2024 Time: 06:15 Bed 7 Private MD: Diagnosis: Bronchitis, bronchospasm, tachycardia Presentation: 02/06 06:19 Chief complaint: Patient states: cough and congestion,onset 2 weeks with green to pf1 yellow sputum,onset 3 days with SOB,onset this AM after coughing a lot. Patient stated was seen at Urgent Care on 01/30/24 and was prescribed Augmentin and inhaler. Patient stated did not use his inhaler this AM. 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 Patient denies any chest pain. 06:19 Coronavirus screen: Vaccine status: Patient reports receiving the 2nd dose of the covid pf1 vaccine. Client denies travel out of the [place] in the last 14 days. Client presents with at least one sign or symptom that may indicate coronavirus-19. Standard/surgical mask placed on the client. Ebola Screen: Patient negative for fever greater than or equal to 101.5 degrees Fahrenheit, and additional compatible Ebola Virus Disease symptoms. Initial Sepsis Screen: Does the patient meet any 2 criteria? HR > 90 bpm. No. Patient's initial sepsis screen is negative. Does the patient have a suspected source of infection? No. Patient's initial sepsis screen is negative. Risk Assessment: Do you want to hurt yourself or someone else? Patient reports no desire to harm self or others. 06:19 Method Of Arrival: Ambulatory pf1 06:19 Acuity: CALEB 3 pf1 06:19 Onset of symptoms was January 24, 2024. pf1 Triage Assessment: 06:20 General: Appears in no apparent distress. uncomfortable, well developed, Behavior is pf1 calm, cooperative, appropriate for age, quiet. Pain: Denies pain. Respiratory: Reports shortness of breath at rest on exertion cough that is productive, Airway is patent Respiratory effort is even, unlabored, Respiratory pattern is regular, symmetrical. Historical: - Allergies: 06:42 No Known Allergies; pf1 - PMHx: 06:42 Asthma; DM; Hypertension; pf1 - PSHx: 06:42 I\\T\\D; pf1 - Immunization history:: Adult Immunizations not up to date, Client reports receiving the 2nd dose of the Covid vaccine, pfizer Last tetanus immunization: > 10 years ago Flu vaccine is not up to date. - Social history:: Smoking status: Patient denies any tobacco usage or history of. Patient uses alcohol, occasionally. street drugs, marijuana. - Family history:: not pertinent. Screenin:01 [facility] ED Fall Risk Assessment (Adult) History of falling in the last 3 months, rs5 including since admission No falls in past 3 months (0 pts) Confusion or Disorientation No (0 pts) Intoxicated or Sedated No (0 pts) Impaired Gait No (0 pts) Mobility Assist Device Used No (0 pt) Altered Elimination No (0 pt) Score/Fall Risk Level 0 - 2 = Low Risk Oriented to surroundings, Maintained a safe environment. Nutritional screening: No deficits noted. Tuberculosis screening: No symptoms or risk factors identified. 07:02 Abuse screen: Denies threats or abuse. Denies injuries from another. ha1 Assessment: 06:19 General: Appears uncomfortable, Behavior is cooperative, anxious. Pain: Complains of ha1 pain in CHEST PAIN WHEN COUGHING Pain does not radiate. Pain at worst was 9 out of 10 on a pain scale. Pain began 2-3 days ago. Neuro: Level of Consciousness is awake, alert, obeys commands, Oriented to person, place, time, situation. Cardiovascular: Heart tones S1 S2 present Capillary refill < 3 seconds Patient's skin is warm and dry. Respiratory: Reports shortness of breath at rest cough that is non-productive, dry, hacking, persistent pain with cough Airway is patent Respiratory effort is even, unlabored, Respiratory pattern is regular, symmetrical, Breath sounds with wheezes bilaterally. GI: Abdomen is round non-distended, obese. : No signs and/or symptoms were reported regarding the genitourinary system. Derm: Skin is pink, warm \\T\\ dry. Musculoskeletal: Circulation, motion, and sensation intact. Range of motion: intact in all extremities. 07:05 General: Appears in no apparent distress. uncomfortable, Behavior is cooperative. Pain: rs5 Complains of pain in pain in chest when coughing Pain does not radiate. Pain currently is 5 out of 10 on a pain scale. Quality of pain is described as aching, Is continuous. Pain:. Neuro: Level of Consciousness is awake, alert, obeys commands, Oriented to person, place, time, situation. Cardiovascular: Patient's skin is warm and dry. Rhythm is sinus tachycardia. Respiratory: Reports shortness of breath cough that is Airway is patent Respiratory effort is even, unlabored, Respiratory pattern is regular, symmetrical. GI: Abdomen is round non-distended, obese, Abd is soft and non tender X 4 quads. : No signs and/or symptoms were reported regarding the genitourinary system. EENT: No signs and/or symptoms were reported regarding the EENT system. Derm: Skin is intact, Skin is pink, warm \\T\\ dry. redness noted to face, pt states "My face gets red like this sometimes randomly, I'm not sure what causes it". Musculoskeletal: Circulation, motion, and sensation intact. 07:06 Reassessment: Provider notified of elevated pulse. rs5 08:00 Reassessment: No changes from previously documented assessment. rs5 09:36 Reassessment: No changes from previously documented assessment. Patient is alert, bp oriented x 3, equal unlabored respirations, skin warm/dry/pink. ADMIT INITIATED. 10:45 Reassessment: REPORT FAXED TO 4TH. bp 10:50 Reassessment: Patient and/or family updated on plan of care and expected duration. Pain rs5 level reassessed. Patient is alert, oriented x 3, equal unlabored respirations, skin warm/dry/pink. 11:20 Reassessment: PT NANCY TO 405. bp Vital Signs: 06:19 BP 189 / 110; Pulse 140; Resp 18; Temp 98.7; Pulse Ox 97% on R/A; Weight 158.76 kg; pf1 Height 5 ft. 10 in. ; Pain 0/10; 06:44 BP 161 / 108; Pulse 135; Resp 20 S; Pulse Ox 97% on R/A; ha1 07:30 BP 164 / 98; Pulse 129; Resp 19; Pulse Ox 97% on R/A; rs5 08:24 BP 160 / 95; Pulse 123; Resp 19; Pulse Ox 96% on R/A; rs5 09:36 BP 146 / 82; Pulse 108; Resp 24; Pulse Ox 100% ; bp 10:45 BP 163 / 92; Pulse 106; Resp 24; Temp 98.9; Pulse Ox 94% on 2 lpm NC; bp 06:19 Body Mass Index 50.22 (158.76 kg, 177.8 cm) pf1 06:19 Pain Scale: Adult pf1 ED Course: 06:16 Patient arrived in ED. ra3 06:17 Suleiman Al MD is Attending Physician. sp4 06:19 Patient has correct armband on for positive identification. Placed in gown. Bed in low ha1 position. Call light in reach. Side rails up X 1. 06:19 Client placed on continuous cardiac and pulse oximetry monitoring. NIBP monitoring ha1 applied. cardiac monitor technician on. 06:35 EKG done, by lawn and garden technician. reviewed by Suleiman Al MD. oe 06:40 Inserted saline lock: 20 gauge in left antecubital area, using aseptic technique. Blood ha1 collected. 06:40 Patient maintains SpO2 saturation greater than 95% on room air. ha1 06:41 Triage completed. pf1 06:43 Influenza Screen (a \\T\\ B) Sent. ha1 06:43 SARS RAPID Sent. ha1 06:43 Basic Metabolic Panel Sent. ha1 06:43 CBC with Diff Sent. ha1 06:43 LFT's Sent. ha1 06:43 Magnesium Sent. ha1 06:43 NT PRO-BNP Sent. ha1 06:43 PT-INR Sent. ha1 06:44 Troponin HS Sent. ha1 06:49 XRAY Chest (1 view) In Process Unspecified. EDMS 07:03 Attending Physician role handed off by Suleiman Al MD sp3 07:03 Chirag Adkins MD is Attending Physician. sp3 07:23 Marck Gee, JANNETH is Primary Nurse. rs5 07:57 CT Chest For PE Angio In Process Unspecified. EDMS 08:25 Assist provider with bone marrow aspiration. rs5 09:22 Mario Lagunas is Hospitalizing Provider. sp3 11:22 Patient admitted, IV remains in place. rs5 Administered Medications: 06:45 Drug: NS 0.9% IV 1000 ml IV at 1 bolus Per protocol; 1000 mL bolus Route: IV; Rate: 1 ha1 bolus; Site: left antecubital; 07:05 Follow up: Response: No adverse reaction rs5 11:21 Follow up: IV Status: Completed infusion; IV Intake: 1000ml bp 06:45 Drug: Rocephin - Rocephin (cefTRIAXone) IVPB 1 grams IVPB once over 30 mins; (mix in 50 ha1 mL NS) Route: IVPB; Infused Over: 30 mins; Site: left antecubital; 07:10 Follow up: Response: No adverse reaction rs5 11:21 Follow up: IV Status: Completed infusion; IV Intake: 100ml bp 06:45 Drug: NS 0.9% IV 1000 ml IV at 1 bolus Per protocol; 1000 mL bolus Route: IV; Rate: 1 ha1 bolus; Site: left antecubital; 07:05 Follow up: Response: No adverse reaction rs5 11:21 Follow up: IV Status: Completed infusion; IV Intake: 1000ml bp 06:50 Drug: [place] PO 10 mg-325 mg 2 tabs PO once Route: PO; ha1 07:30 Follow up: Response: No adverse reaction; Pain is decreased rs5 06:50 Drug: Promethazine PO 25 mg PO once Route: PO; ha1 07:10 Follow up: Response: No adverse reaction rs5 07:00 Drug: Albuterol Inhalation 2.5 mg Inhalation once Route: Inhalation; ha1 07:10 Follow up: Response: No adverse reaction rs5 07:00 Drug: Ipratropium Inhalation Aerosol 0.5 mg Inhalation once Route: Inhalation; ha1 07:15 Follow up: Response: No adverse reaction rs5 09:36 Drug: MethylPrednisoLONE IVP 125 mg IVP once Route: IVP; Site: left antecubital; bp 11:20 Follow up: Response: No adverse reaction bp 09:36 Drug: DuoNeb Nebulize (3:1) (2.5 mg - 0.5 mg) 3 ml Nebulizer once Route: Nebulizer; bp 11:20 Follow up: Response: No adverse reaction bp 09:36 Drug: levofloxacin IVPB 500 mg 100 ml IVPB once over 60 mins Volume: 100 ml; Route: bp IVPB; Infused Over: 60 mins; Site: left antecubital; 11:20 Follow up: IV Status: Completed infusion; IV Intake: 100ml bp Medication: 08:26 VIS not applicable for this client. rs5 Intake: 11:20 IV: 100ml; Total: 100ml. bp 11:21 IV: 1000ml; Total: 1100ml. bp 11:21 IV: 100ml; Total: 1200ml. bp 11:21 IV: 1000ml; Total: 2200ml. bp Outcome: 09:22 Decision to Hospitalize by Provider. sp3 11:21 Admitted to Med/surg accompanied by tech, via stretcher, room 405, with oxygen, bp 11:21 Condition: stable 11: Instructed on the need for admit, :22 Patient left the ED. bp Signatures: Dispatcher [employer] EDMS Ilir Velazquez Brian, RN RN bp Chirag Adkins MD MD sp3 Constanza Guzman RN RN ha1 Sarah Faustin RN RN pf1 Marck Gee RN RN rs5 Suleiman Al MD MD sp4 Mireya Garcia 3
[2024-02-07] MEDS ORDERED: METHYLPREDNISOLONE 125 MG INJ ONE (09:29)
[2024-02-07] MEDS ORDERED: Levofloxacin500mg IV 500 MG/100 ML BAG IV ONE (09:29)
--- NOTE | 2024-02-07 09:41 | P.HP ---
Certification for Inpatient Patient admitted to: Observation With expected LOS: <2 Midnights Patient will require the following post-hospital care: None Practitioner: I am a practitioner with admitting privileges, knowledge of patient current condition, hospital course, and medical plan of care. Services: Services provided to patient in accordance with Admission requirements found in Title 42 Section 412.3 of the Code of Federal Regulations Patient History Date of Service: 02/07/24 Reason for admission: Severe acute bronchitis History of Present Illness: Wilder Blair is a 38-year-old male with past medical history of asthma, diabetes mellitus-NIDDM, hypertension who presents to the ED with complaints of chest tightness and lightheadedness. He reports coughing for 2 weeks which was getting worse, unable to sleep. He is experienced nausea from postnasal drip and diaphoresis. He reports having history of asthma but has not needed an inha ler for 20 years. On evaluation he is on room air, experiencing excessive coughing, afebrile, on room air. While in the ED he was given Levaquin IV, Rocephin IV, albuterol, ipratropium, and [place] of which he tolerated well. Initial vitals 9 BP 189 / 110; Pulse 140; Resp 18; Temp 98.7; Pulse Ox 97% on R/A Laboratory evaluation blood glucose 379, troponin 12.3, BNP 35, lactic acid 1.3, white blood cells 10.6, neutrophils 68.8, otherwise unremarkable. Chest x-ray reports "Decreased inspiratory effort limits evaluation. The lungs are clear. No pneumothorax or effusion. The cardiomediastinal contours are unremarkable.IMPRESSION: No acute cardiopulmonary process." CT chest angio PE protocol reports "Pulmonary arteries are normal. No emboli or other suspicious finding. No acute or significant aorta findings. No mass or infiltrate in the lung parenchyma. No pleural thickening or pleural effusion. No pneumothorax. No abnormal mediastinal or hilar masses or lymphadenopathy seen. No chest wall mass or abnormal axilliary lymphadenopathy. IMPRESSION: No evidence of acute central pulmonary emboli. Negative CT scan of the chest for other significant findings." Wilder will be admitted for 23-hour observation of severe acute bronchitis. 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 - Family History Mother -: Hypertension, Diabetes - Social History Alcohol use: Yes CD- Drugs: Yes Caffeine use: No Review of Systems General: Chills, Sweats, Weakness Respiratory: Cough, Shortness of Breath, Pleuritic Pain Cardiovascular: Light Headedness Gastrointestinal: Nausea Physical Examination - Physical Exam General: Alert, Oriented x3, Acute distress HEENT: Atraumatic, Normocephalic, PERRLA Neck: Supple, 2+ carotid pulse no bruit, JVD not distended Respiratory: Normal air movement, Expiratory wheezes, Other (extensive coughing) Cardiovascular: No edema, Normal pulses, Normal S1 S2, Irregular heart rate/rhythm (tachycardic) Capillary refill: <2 Seconds Gastrointestinal: Normal bowel sounds, Soft and benign, Distended (obese) Musculoskeletal: No clubbing, No swelling, No contractures Integumentary: No rashes Neurological: Normal speech, Normal strength at 5/5 x4 extr - Studies Laboratory Data (last 24 hrs) 02/07/24 02/07/24 02/07/24 06:40 06:40 06:40 WBC 7.60 Hgb 15.1 Hct 43.7 Plt Count 241 PT 12.0 INR 1.09 Sodium 136 Potassium 4.3 BUN 9 Creatinine 0.92 Glucose 379 H Magnesium 2.1 Total Bilirubin 0.6 AST 40 H ALT 71 H Alkaline Phosphatase 152 H Microbiology Data (last 24 hrs): 02/07/24 06:40 Nasopharnyx Influenza Type A Antigen Screen - Final 02/07/24 06:40 Nasopharnyx Influenza Type B Antigen Screen - Final Assessment and Plan - Plan Assessment and plan Acute severe bronchitis History of asthma now with exacerbation Pleuritic chest pain -RR >20, P 102, afebrile, WBC 7.6 -Chest x-ray reports "Decreased inspiratory effort limits evaluation. The lungs are clear. No pneumothorax or effusion. The cardiomediastinal contours are unremarkable.IMPRESSION: No acute cardiopulmonary process." -CT chest angio PE protocol reports "No evidence of acute central pulmonary emboli. Negative CT scan of the chest for other significant findings." -Xopenex and ipratropium -Guaifen w/codeine -Rocephin and Levaquin IV -Pain medication -Monitor magnesium level -Following blood culture -norco -Incentive spirometer Tachycardia -Pulse 140 -use Xopenex for nebs -Continuous telemetry History of hypertension -Continue home medications when available and when appropriate -Apresoline as needed -BP 189 / 110 Diabetes mellitus- NIDDM -Accu-Check ACHS with sliding scale insulin -Serum glucose 379 DVT PPx Lovenox Full code LOS 23 observation Discharge Plan: Home Plan to discharge in: 24 Hours - Advance Directives Does patient have a Living Will: No Does patient have a Durable POA for Healthcare: No Time Spent Managing Pts Care (In Minutes): 50
[2024-02-07] MEDS ORDERED: IPRATROPIUM BROM 0.5MG/2.5ML NEB PRN (10:04)
[2024-02-07] MEDS: Levofloxacin 750mg IV 750 MG/150 ML BAG IV SCH ×2 (11:00→11:44)
[2024-02-07] MEDS: METHYLPREDNISOLONE 40 MG INJ IV SCH (11:43)
[2024-02-07] MEDS: NA CHLORIDE 0.9% 1,000 ML IV SCH (11:44)
[2024-02-07] MEDS: LEVOFLOXACIN IV ONE (12:00)
[2024-02-07] MEDS: INSULIN REGULAR (HUMAN) 100 UNIT/ML SQ SCH (12:12)
[2024-02-07] MEDS: ALBUTEROL 2.5 MG/3 ML NEB SOL NEB SCH (12:20)
[2024-02-07 12:21] VITALS: BMI 50.2
[2024-02-07] MEDS: GUAIFENESIN/CODEINE 5ML UCUP PO PRN (12:29)
[2024-02-07] MEDS ORDERED: GUAIFENESIN/DM 5 ML UCUP PO PRN (12:47)
[2024-02-07] MEDS: HYDROCODONE/APAP 5/325 MG TAB PO PRN (15:23)
[2024-02-07] MEDS ORDERED: HYDRALAZINE HCL 20 MG/ML VIAL IV PRN (17:17)
[2024-02-07] MEDS: ATORVASTATIN 10 MG TAB PO SCH (20:34)
[2024-02-07] MEDS: CEFTRIAXONE 1,000 MG in NA CHLORIDE 0.9% 50 ML IVPB SCH (20:35)
[2024-02-07] MEDS ORDERED: HOME MED 1 EA UNK (Lovastatin [Lovastatin] 20 MG Tablet) PO SCH (21:00)
[2024-02-08 07:35] LABS: Anion Gap 17.5 mEq/L (5.0-15.0); Magnesium 2.3 mg/dL (1.6-2.4); Phosphorus 3.8 mg/dL (2.5-4.9); Potassium 4.5 mEq/L (3.5-5.1)
[2024-02-08 07:36] LABS: Absolute Lymphocytes (CBC) 0.7 K/uL (0.7-4.9); Absolute Monocytes 0.5 K/uL (0.1-1.3); Absolute Neutrophil 8.8 K/uL (1.8-8.0); Basophils % 0.2 % (0-1.3); Hematocrit 41.3 % (39.6-49.0); Lymphocytes % 7.1 % (15.3-44.8); MCH 33.3 pg (27.0-35.0); MPV 9.7 fL (7.6-11.3); Monocytes % 4.6 % (3.3-12.3); Neutrophils % 88.1 % (41.7-73.7); Nucleated Red Blood Cells % 0.1 % (0-0); Platelets 208 thou/uL (152-406); RBC Red Blood Cell Count 4.21 M/uL (4.33-5.43); Red Cell Distribution Width 13.6 % (12.1-15.2)
[2024-02-08 08:36] LABS: Platelet Estimate ADEQ; White Blood Cell Scan OK (OK)
[2024-02-08 08:37] LABS: Blood Morphology Comment NOT SEEN (NOT SEEN)
[2024-02-08] MEDS: AMLODIPINE 10 MG TAB PO SCH (08:42)
[2024-02-08] MEDS: ENOXAPARIN 40 MG/0.4 ML SQ SCH (08:42)
[2024-02-08] MEDS: lisinopriL 10 MG TAB PO SCH (08:43)
--- NOTE | 2024-02-08 10:05 | P.PN ---
Date of Service: 02/08/24 Subjective On oxygen overnight, afebrile, room air this morning with satisfactory oxygenation Still with chronic dry cough, minimal improvement with Robitussin with codeine Coughing during conversation, using incentive spirometer at 1500 ROS 10 point ROS as noted above, otherwise negative Physical Exam General: NAD, awake alert and oriented x 3, conversing well HEENT: Atraumatic, Normocephalic, PERRLA Neck: Supple, 2+ carotid pulse no bruit Respiratory: Symmetrically chest wall movement, Expiratory wheezes, Other (extensive coughing) Cardiovascular: No edema, Normal S1 S2, Irregular heart rate/rhythm (tachycardic) Capillary refill: <2 Seconds Gastrointestinal: Normoactive bowel sounds, Soft and benign on palpation, NT, D istended (obese) Musculoskeletal: No clubbing, No swelling, No contractures, 2+ peripheral pulses Integumentary: No rashes Neurological: Normal speech, Normal strength at 5/5 x4 extr Vitals Reviewed Problem list Acute severe bronchitis History of asthma now with exacerbation Pleuritic chest pain Tachycardia History of hypertension Diabetes mellitus- NIDDM Assessment and Plan Acute severe bronchitis History of asthma now with exacerbation Pleuritic chest pain Left shift -initial RR >20, P 102, afebrile, WBC 7.6 -Chest x-ray reports "Decreased inspiratory effort limits evaluation. The lungs are clear. No pneumothorax or effusion. The cardiomediastinal contours are unremarkable.IMPRESSION: No acute cardiopulmonary process." -CT chest angio PE protocol reports "No evidence of acute central pulmonary emboli. Negative CT scan of the chest for other significant findings." -Neutrophils 88.1- likely d/t steroid use -steroids given in ED and on the floor last night, Stopped this AM -Xopenex and ipratropium -Guaifen w/codeine stopped, added Tessalon Perle -cefepime and Levaquin IV -Pain medication -Monitor magnesium level: 2.1/2.3 -Following blood culture- NGTD -norco -Incentive spirometer -Dulera 2 puffs BID -tussionex Tachycardia -Pulse 99 -use Xopenex for nebs -Continuous telemetry History of hypertension -Continue home medications: norvasc, lisinopril -Apresoline as needed -BP 141/75- improved Diabetes mellitus- NIDDM -Accu-Check ACHS with sliding scale insulin increased to moderate, adding Semglee 15 units at bedtime -Serum glucose 328 -A1C 10 DVT PPx Lovenox Full code LOS
[2024-02-08] MEDS ORDERED: METHYLPREDNISOLONE 40 MG INJ IV SCH (11:00)
[2024-02-08] MEDS: FLUTICASONE 50MCG NASAL SPRAY NAS SCH (12:41)
[2024-02-08] MEDS: DULERA 200/5 (MOMETASONE/FORMOTEROL) INHALER IH SCH (12:41)
[2024-02-08] MEDS: INSULIN REGULAR (HUMAN) 100 UNIT/ML SQ SCH (12:41)
[2024-02-08] MEDS: BENZONATATE 100 MG CAP PO PRN (12:47)
--- NOTE | 2024-02-08 14:28 | EKG ---
Test Date: 2024-02-07 Test Time: 06:21:46 Family Worker: MAIK MEASUREMENT RESULTS: Intervals: Rate: 138 RI: 142 QRSD: 64 QT: 270 QTc: 409 [place]urger: P: 8 RI: 142 QRS: -49 T: 56 INTERPRETIVE STATEMENTS: Sinus tachycardia Left axis deviation Low voltage QRS Inferior infarct, age undetermined Cannot rule out Anterior infarct, age undetermined Abnormal ECG Compared to ECG 07/27/2023 09:43:40 Low QRS voltage now present Myocardial infarct finding still present Electronically Signed On 02-08-24 14:24:00 CDT by Avila Cabrera
[2024-02-08] MEDS: HYDROCODONE/CHLORPHEN 5 ML/OSYR PO PRN (15:23)
[2024-02-08] MEDS: INSULIN GLARGINE 100 UNIT/ML SQ SCH (22:01)
[2024-02-09 02:24] VITALS: O2SAT 95
[2024-02-09 07:08] LABS: Absolute Lymphocytes (CBC) 2.2 K/uL (0.7-4.9); Absolute Monocytes 0.6 K/uL (0.1-1.3); Absolute Neutrophil 5.1 K/uL (1.8-8.0); Basophils % 0.5 % (0-1.3); Eosinophils % 0.6 % (0-4.4); Hematocrit 40.2 % (39.6-49.0); Hemoglobin 13.8 g/dL (13.6-17.9); Lymphocytes % 26.9 % (15.3-44.8); MCH 33.3 pg (27.0-35.0); MCHC 34.3 g/dL (32.0-36.0); MPV 8.9 fL (7.6-11.3); Monocytes % 8.1 % (3.3-12.3); Neutrophils % 63.9 % (41.7-73.7); Platelets 184 thou/uL (152-406); RBC Red Blood Cell Count 4.14 M/uL (4.33-5.43); Red Cell Distribution Width 13.6 % (12.1-15.2)
[2024-02-09 07:10] LABS: Anion Gap 10.6 mEq/L (5.0-15.0); Magnesium 2.3 mg/dL (1.6-2.4); Phosphorus 4.1 mg/dL (2.5-4.9); Potassium 3.6 mEq/L (3.5-5.1)
[2024-02-09] MEDS: POTASSIUM CL SA 10 MEQ TAB PO ONE (08:17)
[2024-02-09] MEDS: MORPHINE 2 MG/ML SYR IV ONE (10:29)
[2024-02-09] MEDS: MAGNESIUM SULFATE 1 gm IVPB 1 GM/100 ML BAG IV ONE (10:29)
[2024-02-09 12:28] VITALS: BP 136/91; TEMP 97.6
--- NOTE | 2024-02-09 13:59 | P.DS ---
Admission Date: 02/07/24 Discharge Date: 02/09/24 Disposition: ROUTINE DISCHARGE Discharge Condition: GOOD Reason for Admission: Severe acute bronchitis Brief History of Present Illness: Diagnosis Acute severe bronchitis History of asthma now with exacerbation Pleuritic chest pain Tachycardia History of hypertension Diabetes mellitus- NIDDM HPI 02/07/24 Wilder Blair is a 38-year-old male with past medical history of asthma, diabetes mellitus-NIDDM, hypertension who presents to the ED with complaints of chest tightness and lightheadedness. He reports coughing for 2 weeks which was getting worse, unable to sleep. He is experienced nausea from postnasal drip and diaphoresis. He reports having history of asthma but has not needed an inhaler for 20 years. On evaluation he is on room air, experiencing excessive coughing, afebrile, on room air. While in the ED he was given Levaquin IV, Rocephin IV, albuterol, ipratropium, and [place] of which he tolerated well. Initial vitals 9 BP 189 / 110; Pulse 140; Resp 18; Temp 98.7; Pulse Ox 97% on R/A Laboratory evaluation blood glucose 379, troponin 12.3, BNP 35, lactic acid 1.3, white blood cells 10.6, neutrophils 68.8, otherwise unremarkable. Chest x-ray reports "Decreased inspiratory effort limits evaluation. The lungs are clear. No pneumothorax or effusion. The cardiomediastinal contours are unremarkable.IMPRESSION: No acute cardiopulmonary process." CT chest angio PE protocol reports "Pulmonary arteries are normal. No emboli or other suspicious finding. No acute or significant aorta findings. No mass or infiltrate in the lung parenchyma. No pleural thickening or pleural effusion. No pneumothorax. No abnormal mediastinal or hilar masses or lymphadenopathy seen. No chest wall mass or abnormal axilliary lymphadenopathy. IMPRESSION: No evidence of acute central pulmonary emboli. Negative CT scan of the chest for other significant findings." Widler will be admitted for 23-hour observation of severe acute bronchitis. Hospital Course: Wilder Blair is a pleasant 38 year old male with a past medical history significant for asthma, diabetes mellitus-NIDDM, hypertension who was admitted to the [facility] on 02/07/24 for acute bronchitis. Wilder presented to the ED with chief complaint of chest tightness and lightheadedness. CT chest angio reports no emboli. Chest xray reports "decreased inspiratory effort limiting evaluation. lungs are clear. no acute cardiopulmonary process." During this admission he has tolerated nebulizer treatment, IV steroids, dulera, robitussin with codiene, tessalon perles, IV magnesium, and subcutaneous insulin. He is alert and oriented, on RA, tolerating PO diet, ambulating independently, and stable for discharge. On 02/09/24, Wilder was seen on morning rounds and deemed medically stable for discharge. Wilder was discharged with instructions to schedule follow-up appointments with PCP. Wilder was provided prescriptions for hydrocodo ne/chlorphen, cefdinir, doxycycline, dulera, nebulizer, prednisone, albuterol nebulizer, semglee, and benzonatate. The patient was given the opportunity to ask questions and reported no further questions. Furthermore, all questions were answered to the best of my ability. A copy of this discharge summary will be sent to the above providers to facilitate continuity of care. Today, I personally spent 50 minutes with Wilder, of which greater than 50% of the time was spent in patient education, counseling, and coordination of care as described above. Physical Exam General: AAOx3, comfortable HEENT: Atraumatic, Normocephalic, PERRLA Neck: Supple, 2+ carotid pulse no bruit Respiratory: Symmetrically chest wall movement, Other (extensive coughing) Cardiovascular: S1S2 present, RRR, no murmur noted Capillary refill: <2 Seconds Gastrointestinal: bowel sounds present, Soft and benign on palpation, Distended (obese), nontender Musculoskeletal: No clubbing, No swelling, No contractures, 2+ peripheral pulses Integumentary: No rashes Neurological: Normal speech, Normal strength at 5/5 x4 extr Vital Signs/Physical Exam: Temp Pulse Resp BP Pulse Ox 97.6 F 88 18 136/91 H 94 02/09/24 12:07 02/09/24 12:07 02/09/24 12:07 02/09/24 12:07 02/09/24 12:07 Laboratory Data at Discharge: WBC 8.00 thou/uL (4.3-10.9) 02/09/24 06:29 Hgb 13.8 g/dL (13.6-17.9) 02/09/24 06:29 Hct 40.2 % (39.6-49.0) 02/09/24 06:29 Plt Count 184 thou/uL (152-406) 02/09/24 06:29 PT 12.0 SECONDS (9.5-12.5) 02/07/24 06:40 INR 1.09 02/07/24 06:40 Sodium 136 mEq/L (136-145) 02/09/24 06:29 Potassium 3.6 mEq/L (3.5-5.1) D 02/09/24 06:29 BUN 18 mg/dL (7-18) 02/09/24 06:29 Creatinine 0.92 mg/dL (0.70-1.30) 02/09/24 06:29 Glucose 342 mg/dL (74-106) H 02/09/24 06:29 Phosphorus 4.1 mg/dL (2.5-4.9) 02/09/24 06:29 Magnesium 2.3 mg/dL (1.6-2.4) 02/09/24 06:29 Total Bilirubin 0.6 mg/dL (0.2-1.0) 02/07/24 06:40 AST 40 U/L (15-37) H 02/07/24 06:40 ALT 71 U/L (16-61) H 02/07/24 06:40 Alkaline Phosphatase 152 U/L (45-117) H 02/07/24 06:40 Home Medications: Amlodipine [Norvasc*] 10 mg PO DAILY 02/07/24 Lovastatin 20 mg PO BEDTIME 02/07/24 Metformin HCl [Glucophage*] 500 mg PO BID 02/07/24 Albuterol Neb [Proventil 0.083% Neb Soln] 2.5 mg NEB Q6H PRN #60 amp 02/09/24 Benzonatate [Tessalon Perle*] 200 mg PO TID PRN #30 cap 02/09/24 Cefdinir [Cefdinir*] 300 mg PO BID #10 cap 02/09/24 Doxycycline Hyclate 100 mg PO BID #14 tab 02/09/24 Hydrocodone/Chlorphen P-Stirex [Hydrocodone-Chlorphen ER Susp] 5 ml PO Q12HP PRN #100 ml 02/09/24 Insulin Glargine,Hum.rec.anlog [Semglee] 15 unit SQ BEDTIME #2 vial 02/09/24 Mometasone/Formoterol [Dulera 200 Mcg/5 Mcg Inhaler] 2 puff IH BID #1 inhaler 02/09/24 Nebulizer 1 each MC DAILY #1 ea 02/09/24 Nebulizer Accessories [Aeroneb Go] 1 each MC DAILY #1 ea 02/09/24 predniSONE [Deltasone] 20 mg PO BID #11 tab 02/09/24 New Medications: Hydrocodone/Chlorphen P-Stirex [Hydrocodone-Chlorphen ER Susp] 5 ml PO Q12HP PRN #100 ml PRN Reason: Cough Nebulizer Accessories [Aeroneb Go] 1 each MC DAILY #1 ea Cefdinir [Cefdinir*] 300 mg PO BID #10 cap Doxycycline Hyclate 100 mg PO BID #14 tab Mometasone/Formoterol [Dulera 200 Mcg/5 Mcg Inhaler] 2 puff IH BID #1 inhaler Nebulizer 1 each MC DAILY #1 ea predniSONE [Deltasone] 20 mg PO BID #11 tab Albuterol Neb [Proventil 0.083% Neb Soln] 2.5 mg NEB Q6H PRN #60 amp PRN Reason: cough/wheezing Insulin Glargine,Hum.rec.anlog [Semglee] 15 unit SQ BEDTIME #2 vial Benzonatate [Tessalon Perle*] 200 mg PO TID PRN #30 cap PRN Reason: COUGH - 1ST LINE Physician Discharge Instructions: -DC IV and DC home -Follow-up with PCP in 1 to 2 weeks -Follow-up with Pulmonary as needed in 1 to 2 weeks -Please call Dr. Reyes at [phone] if any questions regarding hospital stay -Please call nursing station at [phone] if any nursing or medication questions -Return to the emergency room if symptoms worsen Diet: AHA Activity: Fall precautions Followup: Osei Quiros MD [ACTIVE - CAN ADMIT] - 1-2 Weeks NONE,NONE [Primary Care Provider] - Time spent managing pt's care (in minutes): 50
== END 2024-02-09 13:17 | disposition home or self-care (01) ==
LOC: ER 06:15 → ERHOLD 10:04 → 4TH 10:55
PROVIDERS: ADMIT Internal Medicine; ATTEND Hospitalist
DX: J20.9 Acute bronchitis, unspecified (principal); J45.901 Unspecified asthma with (acute) exacerbation; R07.81 Pleurodynia; R00.0 Tachycardia, unspecified; I10 Essential (primary) hypertension; E11.9 Type 2 diabetes mellitus without complications; R05.9 Cough, unspecified
CPT/HCPCS: 96365; 93005; 87040 ×2; 85025 ×3; 80048 ×3; 36415 ×3; 83735 ×3; 84100 ×2; 85610; 82947 ×9; 80076; 83605; 83036; 84484; 83880; 87804 ×2; 71275; 71045; 94010 ×4; 94640 ×9; 96375; 99285; 96366; 87811; Q9967; J1815 ×9; Q0169; J3475; J3535; J7613 ×10; J7644 ×2; J1650 ×2; J2270; J2930; G0378 ×5; J7030 ×2; J2920; J0696 ×3

== ENCOUNTER 2025-01-04 16:32 | Emergency (ER) | payer BC ==
[2025-01-04] MEDS ORDERED: FLUORESCEIN SODIUM 1 MG/WRAP ONE (16:55)
[2025-01-04] MEDS ORDERED: TETRACAINE HCL 0.5% 4ML OPTH ONE (16:55)
[2025-01-04] MEDS ORDERED: DIPHENHYDRAMINE 50 MG/ML VIAL ONE (17:15)
[2025-01-04] MEDS ORDERED: METOCLOPRAMIDE 10 MG/2mL INJ ONE (17:15)
[2025-01-04 17:29] LABS: Absolute Basophils 0.1 K/uL (0-0.5); Absolute Eosinophils 0.1 K/uL (0-0.5); Absolute Lymphocytes (CBC) 2.1 K/uL (0.7-4.9); Absolute Monocytes 0.5 K/uL (0.1-1.3); Absolute Neutrophil 6.2 K/uL (1.8-8.0); Basophils % 0.9 % (0-1.3); Eosinophils % 1.4 % (0-4.4); Hematocrit 44.3 % (39.6-49.0); Hemoglobin 15.5 g/dL (13.6-17.9); Lymphocytes % 23.1 % (15.3-44.8); MCH 33.6 pg (27.0-35.0); MCHC 34.9 g/dL (32.0-36.0); MCV 96.1 fL (80-100); MPV 8.9 fL (7.6-11.3); Monocytes % 5.2 % (3.3-12.3); Neutrophils % 69.4 % (41.7-73.7); Nucleated Red Blood Cells % 0.1 % (0-0); Platelets 211 thou/uL (152-406); RBC Red Blood Cell Count 4.61 M/uL (4.33-5.43); Red Cell Distribution Width 13.2 % (12.1-15.2)
[2025-01-04 17:52] LABS: Anion Gap 13.8 mEq/L (5.0-15.0); Potassium 3.8 mEq/L (3.5-5.1)
--- NOTE | 2025-01-04 18:34 | RAD REPORT ---
EXAM: CT brain without contrast HISTORY: headach COMPARISON: None TECHNIQUE: Multiple contiguous axial images were obtained and a CT of the brain without contrast. Sag ittal and coronal reformats were performed. One or more of the following dose reduction techniques were used: Automated exposure control, adjust ment of the mA and/or kV according to patient size, and/or iterative reconstruction. FINDINGS: No evidence of hydrocephalus, intracranial hemorrhage, or extra-axial fluid collection. The brain is normal in morphology. No evidence of midline shift or areas of brain edema. The calvarium is intact. Mild polypoid mucosal thickening noted in the paranasal sinuses. IMPRESSION: No evidence of acute intracranial abnormality.
[2025-01-04] MEDS ORDERED: FENTANYL CITR 100 MCG/2 ML ONE ×2 (18:36→21:05)
--- NOTE | 2025-01-04 18:36 | RAD REPORT ---
EXAMINATION: CT ORBITAL PROTOCOL CLINICAL INDICATION: orbital cellulitis? TECHNIQUE: Axial images were obtained through the orbits. Sagittal and coronal reconstructions were c reated from the data. One or more of the following dose reduction techniques were used: Automated exposure control, adjustment of the mA and/or kV according to patient size, and/or iterative reconstr uction. Unless otherwise specified, incidental findings do not require dedicated imaging follow-up. COMPARISON: No prior exam. FINDINGS: ORBITS: The globes are intact. No intraorbital hemorrhage or mass. The extraocular muscles appear sym metric. No intraconal or extraconal abnormality is detected. No evidence of significant proptosis. Divergent gaze. SINUSES: Mild polypoid thickening left maxillary sinus. SOFT TISSUE: Moderate preseptal swelling on the left. Along the lateral margin that extends posterior ly in the fat BONES: No evidence of fracture, dislocation, or aggressive osseous lesions. No lesion of the visuali zed skull base or calvarium. BRAIN: No acute abnormalities in the visualized intracranial structures. IMPRESSION: Preseptal cellulitis is present on the left. Moderately inflamed tissue extends laterally and posteri apollo in the left orbit suggesting early orbital cellulitis is present. Divergent gaze.
--- NOTE | 2025-01-04 18:42 | ER ---
Nurse's Notes [facility] Name: Wilder Blair Age: 39 yrs Sex: Male : 1985 Arrival Date: 01/04/2025 Time: 16:32 Bed 18 Private MD: Diagnosis: Pre-septal Cellulitis;Orbital Cellulitis;Type 2 diabetes mellitus with hyperglycemia Presentation: 01/04 16:52 Chief complaint: Patient states: left eye pain radiating to head. Coronavirus screen: aa5 At this time, the client does not indicate any symptoms associated with coronavirus-19. Ebola Screen: Patient denies travel to an Ebola-affected area in the 21 days before illness onset. Initial Sepsis Screen: Does the patient meet any 2 criteria? HR > 90 bpm. Does the patient have a suspected source of infection? No. Patient's initial sepsis screen is negative. Risk Assessment: Do you want to hurt yourself or someone else? Patient reports no desire to harm self or others. Onset of symptoms was December 2024. 16:52 Acuity: CALEB 2 aa5 16:52 Method Of Arrival: Ambulatory aa5 Historical: - Allergies: 16:54 No Known Allergies; aa5 - PMHx: 16:54 Asthma; DM; Hypertension; aa5 - PSHx: 16:54 I\T\D; aa5 - Immunization history:: Adult Immunizations unknown. - Infectious Disease History:: Denies. - Social history:: Smoking status: Patient denies any tobacco usage or history of. Screenin:00 [facility] ED Fall Risk Assessment (Adult) History of falling in the last 3 months, vc1 including since admission No falls in past 3 months (0 pts) Confusion or Disorientation No (0 pts) Intoxicated or Sedated No (0 pts) Impaired Gait No (0 pts) Mobility Assist Device Used No (0 pt) Altered Elimination No (0 pt) Score/Fall Risk Level 0 - 2 = Low Risk Oriented to surroundings, Maintained a safe environment, Educated pt \T\ family on fall prevention, incl call for assistance when getting out of bed. Abuse screen: Denies threats or abuse. Nutritional screening: No deficits noted. Tuberculosis screening: No symptoms or risk factors identified. Assessment: 17:00 General: Appears in no apparent distress. uncomfortable, Behavior is calm, cooperative, jb4 appropriate for age. Pain: Complains of pain in left eye Pain does not radiate. Pain currently is 10 out of 10 on a pain scale. Neuro: Level of Consciousness is awake, alert, obeys commands, Oriented to person, place, time, situation. Cardiovascular: Patient's skin is warm and dry. Respiratory: Airway is patent Respiratory effort is even, unlabored, Respiratory pattern is regular, symmetrical. EENT: Sclera/Cornea are reddened in outer aspect of conjuctiva of left eye, iris of left eye and inner aspect of conjunctiva of left eye. Derm: Skin is intact, Skin is pink, warm \T\ dry. 18:05 Reassessment: Patient appears in no apparent distress at this time. Patient and/or jb4 family updated on plan of care and expected duration. Pain level reassessed. Patient is alert, oriented x 3, equal unlabored respirations, skin warm/dry/pink. 19:00 Reassessment: Patient appears in no apparent distress at this time. Patient and/or jb4 family updated on plan of care and expected duration. Pain level reassessed. Patient is alert, oriented x 3, equal unlabored respirations, skin warm/dry/pink. 20:00 Reassessment: Patient appears in no apparent distress at this time. Patient and/or jb4 family updated on plan of care and expected duration. Pain level reassessed. Patient is alert, oriented x 3, equal unlabored respirations, skin warm/dry/pink. 20:37 Reassessment: Patient appears in no apparent distress at this time. No changes from vc1 previously documented assessment. Patient and/or family updated on plan of care and expected duration. Pain level reassessed. Patient is alert, oriented x 3, equal unlabored respirations, skin warm/dry/pink. 21:00 Reassessment: Patient appears in no apparent distress at this time. Patient and/or jb4 family updated on plan of care and expected duration. Pain level reassessed. Patient is alert, oriented x 3, equal unlabored respirations, skin warm/dry/pink. 21:48 Reassessment: Patient appears in no apparent distress at this time. Patient and/or jb4 family updated on plan of care and expected duration. Pain level reassessed. Patient is alert, oriented x 3, equal unlabored respirations, skin warm/dry/pink. Vital Signs: 16:52 BP 243 / 128; Pulse 115; Resp 20 S; Temp 98(TE); Pulse Ox 97% on R/A; Weight 149.69 kg aa5 (R); Height 5 ft. 10 in. (R); 18:04 BP 146 / 76; Pulse 64; Resp 20; Pulse Ox 90% on R/A; jb4 19:09 BP 176 / 90; Pulse 98; Resp 16; Pulse Ox 97% on R/A; jb4 20:00 BP 187 / 114; Pulse 105; Resp 20; Pulse Ox 100% ; jb4 21:00 BP 183 / 99; Pulse 99; Resp 16; Pulse Ox 96% on R/A; jb4 16:52 Body Mass Index 47.35 (149.69 kg, 177.8 cm) aa5 Visual Acuity: 19:00 Left Eye Visual acuity 20/200, Pupil size 3 mm, ; Right Eye Visual acuity 20/20, Pupil jb4 size 3 mm, ; Both Eyes Visual acuity 20/50; With Lenses; Pt unable to tolerate light ED Course: 16:34 Patient arrived in ED. jj6 16:36 Antione Ring MD is Attending Physician. ec2 16:52 Arm band placed on Patient placed in an exam room, on a stretcher. aa5 16:54 Triage completed. aa5 17:10 Inserted saline lock: 20 gauge in right forearm, using aseptic technique. jb4 17:24 Armond Cooper, JANNETH is Primary Nurse. jb4 18:28 Orbits W/Cont In Process Unspecified. EDMS 18:28 CT Head Brain wo Cont In Process Unspecified. EDMS 18:54 called [facility] transfer center talked Cari. sp 19:00 Patient has correct armband on for positive identification. Bed in low position. Call vc1 light in reach. 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 Pulse ox on. NIBP on. 19:26 Bishop from transfer center called asked to speak with Dr. Anton for conference vk call with Ophthalmology. 19:28 Notified ED physician of a critical lab result(s). Lactic 2.[address] Anton. vc1 19:30 Kiara from [facility] transfer [facility] called stated hospitalist calling for conference call vk with Dr. Anton. 19:51 Per Kiara Bach at [facility] Transfer [facility] patient was accepted to Dr. Linette Davidson to Unit vk 10 A Bed 1001 Report # [phone]. 20:36 No provider procedures requiring assistance completed. Patient transferred, IV remains vc1 in place. 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 21:00 Provided Education on: need for transfer. [facility] Administered Medications: 17:00 Drug: Tetracaine Ophthalmic Drops 0.5 % 1 drops Ophthalmic once {Note: administered by jb4 ER .} Route: Ophthalmic; Site: left eye; 17:24 Drug: metoCLOPramide IVP 10 mg IVP once; over 1 to 2 minutes Route: IVP; Site: right jb4 forearm; 18:40 Follow up: Response: No adverse reaction [facility] 17:24 Drug: diphenhydrAMINE IVP 25 mg IVP once Route: IVP; Site: right forearm; [facility] 18:40 Follow up: Response: No adverse reaction [facility] 18:40 Drug: fentaNYL (PF) IVP 50 mcg IVP once Route: IVP; Site: right forearm; [facility] 19:10 Follow up: Response: No adverse reaction; Marked relief of symptoms; Pain is decreased [facility] 19:08 Drug: Piperacillin-Tazobactam IVPB 3.375 grams IVPB once over 60 mins; (mix in NS 100 jb4 mL) Route: IVPB; Infused Over: 60 mins; Site: right forearm; 20:08 Follow up: Response: No adverse reaction; IV Status: Completed infusion; IV Intake: jb4 100ml 19:09 Drug: NS 0.9% IV 1000 ml IV at 1 bolus Per protocol; to be given as a bolus over 60 jb4 minutes Route: IV; Rate: 1 bolus; Site: right forearm; 20:15 Follow up: Response: No adverse reaction; IV Status: Completed infusion; IV Intake: jb4 1000ml 20:30 Drug: vancoMYCIN IVPB 1 grams IVPB once over 2 hrs Route: IVPB; Infused Over: 2 hrs; 4 Site: right antecubital; 21:51 Follow up: IV Status: Infusion continued upon transfer [facility] 20:31 Drug: NS 0.9% IV (30 ml/kg) 30 ml/kg IV at bolus once; Sepsis Protocol; to be given as jb4 a bolus over 90 minutes {Note: instructed to give a total of 3L counting the prior fluid bolus.} Route: IV; Rate: bolus; Site: right antecubital; 21:49 Follow up: Response: No adverse reaction; IV Status: Completed infusion; IV Intake: jb4 2000ml 20:32 Drug: Insulin Glargine Sub-Q 30 units Sub-Q once {Co-Signature: [email or web address] (Armond Cooper vc1 RN).} Route: Sub-Q; Site: right upper abdomen; 21:50 Follow up: Response: No adverse reaction; Marked relief of symptoms; Blood sugar is jb4 lowered 20:33 Drug: Insulin Regular Human IVP 10 units IVP once {Co-Signature: jb4 (Armond Cooper vc1 RN).} Route: IVP; Site: right hand; 21:50 Follow up: Response: No adverse reaction; Marked relief of symptoms; Blood sugar is jb4 lowered 21:10 Drug: fentaNYL (PF) IVP 50 mcg IVP once Route: IVP; Site: right forearm; jb4 21:49 Follow up: Response: No adverse reaction; Marked relief of symptoms; Pain is decreased jb4 Medication: 20:37 VIS not applicable for this client. vc1 Intake: 20:08 IV: 100ml; Total: 100ml. jb4 20:15 IV: 1000ml; Total: 1100ml. jb4 21:49 IV: 2000ml; Total: 3100ml. jb4 Outcome: 18:42 ER care complete, transfer ordered by . ec2 21:00 Transferred by ground EMS to [facility], Transfer form jb4 completed. X-rays sent w/ patient. 21:00 Condition: stable 21:00 Discharge instructions given to patient, Instructed on the need for transfer, Demonstrated understanding of instructions, 21:51 Patient left the ED. jb4 Signatures: Dispatcher [employer] EDLyssa Garcia Audri, RN RN leigh5 Armond Cooper, JANNETH RN jb4 Camille Serna Vanessa, RN RN 1 Antione Ring MD MD ec2 Raven Leroy James RN jb4
--- NOTE | 2025-01-04 18:42 | EDPHYS ---
Physician Documentation [facility] Name: Wilder Blair Age: 39 yrs Sex: Male : 1985 Arrival Date: 01/04/2025 Time: 16:32 Bed 18 Private MD: ED Physician Antione Ring HPI: 01/04 17:39 This 39 yrs old Male presents to ER via Ambulatory with complaints of ec2 Drainage From Eye, Eye Pain. 17:39 Patient with history of poorly controlled hypertension, diabetes arrives today for left ec2 eye pain. Reports that he has been experiencing left eye pain, drainage, redness for the past 4 days. Patient denies contact lens use. Patient reports no cough and cold symptoms, no fevers or chills, no nausea or vomiting, no previous ocular pathology. No eye trauma.. Historical: - Allergies: 16:54 No Known Allergies; aa5 - PMHx: 16:54 Asthma; DM; Hypertension; aa5 - PSHx: 16:54 I\T\D; aa5 - Immunization history:: Adult Immunizations unknown. - Infectious Disease History:: Denies. - Social history:: Smoking status: Patient denies any tobacco usage or history of. ROS: 17:40 Constitutional: as per hpi ec2 Exam: 17:40 Visual Acuity: ec2 17:40 Constitutional: GEN: NAD Head: atraumatic Eyes: EOMI, left eye with significant conjunctival injection, drainage appreciated, intact range of motion Ears: External ears are normal. CV: regular rate LUNGS: no respiratory distress ABD: non-distended SKIN: no evidence of rashes MSK: no evidence of trauma Vital Signs: 16:52 BP 243 / 128; Pulse 115; Resp 20 S; Temp 98(TE); Pulse Ox 97% on R/A; Weight 149.69 kg aa5 (R); Height 5 ft. 10 in. (R); 18:04 BP 146 / 76; Pulse 64; Resp 20; Pulse Ox 90% on R/A; jb4 19:09 BP 176 / 90; Pulse 98; Resp 16; Pulse Ox 97% on R/A; jb4 20:00 BP 187 / 114; Pulse 105; Resp 20; Pulse Ox 100% ; jb4 21:00 BP 183 / 99; Pulse 99; Resp 16; Pulse Ox 96% on R/A; jb4 16:52 Body Mass Index 47.35 (149.69 kg, 177.8 cm) aa5 Visual Acuity: 19:00 Left Eye Visual acuity 20/200, Pupil size 3 mm, ; Right Eye Visual acuity 20/20, Pupil jb4 size 3 mm, ; Both Eyes Visual acuity 20/50; With Lenses; Pt unable to tolerate light MDM: 16:38 Medical Screening Exam initiated ec2 17:40 Data reviewed: vital signs, nurses notes. ED course: Patient arrives today for left eye ec2 pain and swelling along with erythema. Examination yields eye findings as above. Will obtain lab work, CT scan of the head as well as CT of the orbits given the marked discomfort patient is exhibiting.. 18:41 ED course: CT imaging concerning with preseptal cellulitis, likely early onset orbital ec2 cellulitis, will give the patient IV antibiotics, transfer to ophthalmology capable facility.. 01/04 17:09 Order name: CBC with Diff; Complete Time: 18:05 ec2 01/04 17:09 Order name: BMP; Complete Time: 18:05 ec2 01/04 18:41 Order name: Lactate w/ 2H reflex if indic.; Complete Time: 19:36 ec2 01/04 19:31 Order name: Ghost Lactate-NO COLLECT Timer EDMS 01/04 20:31 Order name: Glucose, Ancillary Testing EDMS 01/04 20:33 Order name: Glucose, Ancillary Testing EDMS 01/04 21:44 Order name: Glucose, Ancillary Testing EDMS 01/04 17:13 Order name: CT Head Brain wo Cont; Complete Time: 18:39 ec2 01/04 17:15 Order name: Orbits W/Cont; Complete Time: 18:39 EDMS 01/04 16:51 Order name: Eye Tray; Complete Time: 16:59 ec2 01/04 16:51 Order name: Fluoresene Opth strip; Complete Time: 16:59 ec2 01/04 17:09 Order name: IV; Complete Time: 17:10 ec2 01/04 18:41 Order name: Visual Acuity; Complete Time: 19:09 ec2 Administered Medications: 17:00 Drug: Tetracaine Ophthalmic Drops 0.5 % 1 drops Ophthalmic once {Note: administered by jb4 ER .} Route: Ophthalmic; Site: left eye; 17:24 Drug: metoCLOPramide IVP 10 mg IVP once; over 1 to 2 minutes Route: IVP; Site: right jb4 forearm; 18:40 Follow up: Response: No adverse reaction jb4 17:24 Drug: diphenhydrAMINE IVP 25 mg IVP once Route: IVP; Site: right forearm; jb4 18:40 Follow up: Response: No adverse reaction jb4 18:40 Drug: fentaNYL (PF) IVP 50 mcg IVP once Route: IVP; Site: right forearm; jb4 19:10 Follow up: Response: No adverse reaction; Marked relief of symptoms; Pain is decreased jb4 19:08 Drug: Piperacillin-Tazobactam IVPB 3.375 grams IVPB once over 60 mins; (mix in NS 100 jb4 mL) Route: IVPB; Infused Over: 60 mins; Site: right forearm; 20:08 Follow up: Response: No adverse reaction; IV Status: Completed infusion; IV Intake: jb4 100ml 19:09 Drug: NS 0.9% IV 1000 ml IV at 1 bolus Per protocol; to be given as a bolus over 60 jb4 minutes Route: IV; Rate: 1 bolus; Site: right forearm; 20:15 Follow up: Response: No adverse reaction; IV Status: Completed infusion; IV Intake: jb4 1000ml 20:30 Drug: vancoMYCIN IVPB 1 grams IVPB once over 2 hrs Route: IVPB; Infused Over: 2 hrs; 4 Site: right antecubital; 21:51 Follow up: IV Status: Infusion continued upon transfer jb4 20:31 Drug: NS 0.9% IV (30 ml/kg) 30 ml/kg IV at bolus once; Sepsis Protocol; to be given as jb4 a bolus over 90 minutes {Note: instructed to give a total of 3L counting the prior fluid bolus.} Route: IV; Rate: bolus; Site: right antecubital; 21:49 Follow up: Response: No adverse reaction; IV Status: Completed infusion; IV Intake: jb4 2000ml 20:32 Drug: Insulin Glargine Sub-Q 30 units Sub-Q once {Co-Signature: jb4 (Armond Cooper vc1 RN).} Route: Sub-Q; Site: right upper abdomen; 21:50 Follow up: Response: No adverse reaction; Marked relief of symptoms; Blood sugar is jb4 lowered 20:33 Drug: Insulin Regular Human IVP 10 units IVP once {Co-Signature: jb4 (Armond Cooper vc1 RN).} Route: IVP; Site: right hand; 21:50 Follow up: Response: No adverse reaction; Marked relief of symptoms; Blood sugar is jb4 lowered 21:10 Drug: fentaNYL (PF) IVP 50 mcg IVP once Route: IVP; Site: right forearm; jb4 21:49 Follow up: Response: No adverse reaction; Marked relief of symptoms; Pain is decreased jb4 Disposition Summary: 01/04/25 18:42 Transfer Ordered Notes: Transfer Location: Other Acute Care Facility ec2 Reason: Higher level of care ec2 Condition: Stable ec2 Problem: new ec2 Symptoms: are unchanged ec2 Accepting Physician: transferring doc(01/04/25 21:51) jb4 Diagnosis - Pre-septal Cellulitis ec2 - Orbital Cellulitis ec2 - Type 2 diabetes mellitus with hyperglycemia yolanda Forms: - Medication Reconciliation Form ec2 - SBAR form ec2 Critical care time excluding procedures: 18:41 Critical care time: Bedside Care: 30 minutes, Consultation: 5 minutes. Total time: 35 ec2 minutes Signatures: Dispatcher [employer] Pako Bar MD MD cha Calderon, Audri RN RN leigh5 Armond Cooper RN RN jb4 Mya Pulido RN RN 1 Antione Ring MD MD ec2 Armond Cooper RN jb4 Corrections: (The following items were deleted from the chart) 19:38 18:42 transferring doc ec2 yolanda 21:51 19:38 transferring doc yolanda jb4
[2025-01-04] MEDS ORDERED: NA CHLORIDE 0.9% 1,000 ML ONE (19:00)
[2025-01-04] MEDS ORDERED: NA CHLORIDE 0.9% 100 ML ONE (19:00)
[2025-01-04] MEDS ORDERED: NA CHLORIDE 0.9% 250 ML ONE (19:00)
[2025-01-04] MEDS ORDERED: VANCOMYCIN 1 GM/VIAL ONE (19:00)
[2025-01-04] MEDS ORDERED: PIPERACIL/TAZO 3.375 GM VIAL IV ONE (19:00)
[2025-01-04] MEDS ORDERED: INSULIN GLARGINE 100 UNIT/ML SQ ONE (20:24)
[2025-01-04] MEDS ORDERED: NA CHLORIDE 0.9% 2,000 ML ONE (20:25)
[2025-01-04] MEDS ORDERED: INSULIN REGULAR (HUMAN) 100 UNIT/ML ONE (20:25)
[2025-01-04 21:59] VITALS: TEMP 98
[2025-01-04 22:04] VITALS: BP 183/99; O2SAT 96
== END 2025-01-04 21:51 ==
LOC: ER 16:32
DX: L03.213 Periorbital cellulitis (principal); E11.65 Type 2 diabetes mellitus with hyperglycemia; I10 Essential (primary) hypertension
CPT/HCPCS: 85025; 80048; 36415; 82947 ×2; 83605 ×2; 70450; 70481; 96372; 99285; Q9967; J2765; J1200; J2543; J3010 ×2; J7050; J7030 ×2